=== PATIENT | male | born 1955 | race Caucasian/White ===

== ENCOUNTER 2016-08-09 12:01 | Emergency (ER) | payer MEDICAID ==
[2016-08-09] MEDS ORDERED: KETOROLAC 30 MG/ML 1 ML VIAL IVP STA (13:06)
[2016-08-09] MEDS ORDERED: MORPHINE SULFATE 4 MG/ML SYRINGE IV STA (13:06)
[2016-08-09] MEDS ORDERED: SODIUM CHLORIDE 0.9% 1,000 ML IV STA (13:06)
--- NOTE | 2016-08-09 13:07 | ED ---
General Adult HPI - General Chief complaint: Abdominal Pain Stated complaint: Abd Pain Time Seen by Provider: 08/09/16 12:52 Source: patient, RN notes reviewed, old records reviewed Mode of arrival: ambulatory Limitations: no limitations - History of Present Illness Initial comments: This is a 61-year-old male the ER for evaluation today. This patient presents for evaluation of bowel pain. Right-sided abdominal flank pain rating to groin. No nausea and vomiting. Pain started Tuesday has been getting worse and better, nothing seems to make it worse or better and it seems to kind of come and [place] bit. Patient has no problems with urination no noted blood in his urine no diarrhea no fevers no travel history of fifth - Related Data Home Medications Medication Instructions Recorded Confirmed Fenofibrate [Tricor] 54 mg PO HS 12/03/14 08/09/16 Pravastatin Sodium [Pravachol] 20 mg PO HS 12/03/14 08/09/16 amLODIPine [Norvasc] 5 mg PO HS 12/03/14 08/09/16 Aspirin 81 mg PO HS 08/09/16 08/09/16 Ergocalciferol [Vitamin D2] 50,000 unit PO MO 08/09/16 08/09/16 Allergies Allergy/AdvReac Type Severity Reaction Status Date / Time Anesthetics - Amide Type Allergy Nausea & Verified 08/09/16 13:24 Vomiting Review of Systems ROS Statement: Those systems with pertinent positive or pertinent negative responses have been documented in the HPI. ROS Other: All systems not noted in ROS Statement are negative. Past Medical History Past Medical History: Prostate Disorder History of Any Multi-Drug Resistant Organisms: None Reported Additional Past Surgical History / Comment(s): prostate reduction Past Psychological History: No Psychological Hx Reported Smoking Status: Former smoker Past Alcohol Use History: Occasional Past Drug Use History: Marijuana General Exam Limitations: no limitations General appearance: alert, in no apparent distress Head exam: Present: atraumatic, normocephalic, normal inspection Eye exam: Present: normal appearance, PERRL, EOMI. Absent: scleral icterus, conjunctival injection, periorbital swelling ENT exam: Present: normal exam, mucous membranes moist Neck exam: Present: normal inspection. Absent: tenderness, meningismus, lymphadenopathy Respiratory exam: Present: normal lung sounds bilaterally. Absent: respiratory distress, wheezes, rales, rhonchi, stridor Cardiovascular Exam: Present: regular rate, normal rhythm, normal heart sounds. Absent: systolic murmur, diastolic murmur, rubs, gallop, clicks GI/Abdominal exam: Present: soft, normal bowel sounds. Absent: distended, tenderness, guarding, rebound, rigid Extremities exam: Present: normal inspection, full ROM, normal capillary refill. Absent: tenderness, pedal edema, joint swelling, calf tenderness Back exam: Present: normal inspection Neurological exam: Present: alert, oriented X3, CN II-XII intact Psychiatric exam: Present: normal affect, normal mood Skin exam: Present: warm, dry, intact, normal color. Absent: rash Course Vital Signs 08/09/16 12:21 Temperature 97.9 F Pulse Rate 64 Respiratory 20 Rate Blood Pressure 138/93 O2 Sat by Pulse 99 Oximetry - Reevaluation(s) Reevaluation #1: 08/09/16 14:19 At this point patient's pain is relieved Medical Decision Making - Medical Decision Making 61 male to the ED for evaluation of flank pain. Positive. Stones. No infection, patient can be discharged home with pain control - Lab Data Result diagrams: 08/09/16 13:55 Lab Results 08/09/16 Range/Units 13:55 WBC 5.3 (3.8-10.6) k/uL RBC 4.57 (4.30-5.90) m/uL Hgb 14.5 (13.0-17.5) gm/dL Hct 42.2 (39.0-53.0) % MCV 92.3 (80.0-100.0) fL MCH 31.7 (25.0-35.0) pg MCHC 34.4 (31.0-37.0) g/dL RDW 12.7 (11.5-15.5) % Plt Count 158 (150-450) k/uL Neutrophils % 59 % Lymphocytes % 23 % Monocytes % 7 % Eosinophils % 8 % Basophils % 1 % Neutrophils # 3.1 (1.3-7.7) k/uL Lymphocytes # 1.2 (1.0-4.8) k/uL Monocytes # 0.4 (0-1.0) k/uL Eosinophils # 0.4 (0-0.7) k/uL Basophils # 0.1 (0-0.2) k/uL - Radiology Data Radiology results: report reviewed (CT of the abdomen had a pelvis positive for kidney stone), image reviewed Disposition Clinical Impression: Right kidney stone Disposition: HOME SELF-CARE Condition: Good Instructions: Kidney Stones (ED) Referrals: Juan Mathur MD [Primary Care Provider] - 1-2 days
[2016-08-09 14:09] LABS: Basophils # (A) 0.1 k/uL (0-0.2); Basophils % (A) 1 %; CH 32.3; CHCM 35.2; Eosinophils # (A) 0.4 k/uL (0-0.7); Eosinophils % (A) 8 %; HCT 42.2 % (39.0-53.0); HDW 2.63; HGB 14.5 gm/dL (13.0-17.5); Luc # (Auto) 0.17; Luc % (Auto) 3; Lymphocytes # (A) 1.2 k/uL (1.0-4.8); Lymphocytes % (A) 23 %; MCH 31.7 pg (25.0-35.0); MCHC 34.4 g/dL (31.0-37.0); MCV 92.3 fL (80.0-100.0); Mean Platelet Volume 8.8; Monocytes # (A) 0.4 k/uL (0-1.0); Monocytes % (A) 7 %; Neutrophils # (A) 3.1 k/uL (1.3-7.7); Neutrophils % (A) 59 %; RBC 4.57 m/uL (4.30-5.90); RDW 12.7 % (11.5-15.5); WBC 5.3 k/uL (3.8-10.6); WBC (Perox) 5.52
[2016-08-09 14:23] LABS: ALT 53 U/L (21-72); AST 50 U/L (17-59); Alkaline Phosphatase 71 U/L (38-126); Amylase 83 U/L (30-110); Anion Gap 11 mmol/L; Blood Urea Nitrogen 22 mg/dL (9-20); Carbon Dioxide 25 mmol/L (22-30); Chloride 106 mmol/L (98-107); Glucose 103 mg/dL (74-99); Non-African American GFR(MDRD) 55 (>60 ml/min/1.73 sqM); Potassium 4.3 mmol/L (3.5-5.1); Sodium 142 mmol/L (137-145); Total Bilirubin 0.5 mg/dL (0.2-1.3); Total Protein 7.4 g/dL (6.3-8.2)
--- NOTE | 2016-08-09 14:34 | CT ---
EXAMINATION TYPE: CT abdomen pelvis wo con DATE OF EXAM: 08/09/2016 2:24 PM HISTORY: renal stones, right flank pain CT DLP: 619 mGycm. Automated Exposure Control for Dose Reduction was Utilized. TECHNIQUE: CT scan of the abdomen and pelvis is performed without oral or IV contrast. COMPARISON: CT abdomen and pelvis January 30, 2010 FINDINGS: Within the limitations of a non-contrast study, the following observations are made. LUNG BASES: Dependent atelectasis is present in both lungs. LIVER/GB: Liver is low dense and isodense to adjacent spleen consistent with diffuse fatty infiltrati on. Vague 2.6 x 1.6 cm low dense lesion left hepatic dome on axial image 30 is diminished in size fro m prior exam suggesting most likely is benign. Smaller hypodense lesion right hepatic dome is not [place] seen on today's study. PANCREAS: No significant abnormality is seen. SPLEEN: No significant abnormality is seen. ADRENALS: No significant abnormality is seen. KIDNEYS: There is new 2 mm calculus right kidney mid to lower pole level on axial image 59 posteriorl y. There is similar 2 millimeter new calculus left kidney mid to lower pole level on axial image 61. There is obstructing 4 mm calculus seen best on coronal image 62 in the distal right ureter causing m ild right-sided pyelocaliectasis and proximal hydroureter. Mild fat stranding along course of the ure ter and right kidney is noted presumed related to obstructing calculus but underlying infection shoul d be excluded clinically. No left-sided hydronephrosis or obstructing stones are seen. No intralumina l calculi and bladder are noted. BOWEL: There are few diverticula seen in the left and sigmoid colon. There is no suspicious small or large bowel dilatation. Normal-appearing appendix is seen from the cecum. GENITAL ORGANS: Prostate gland is heterogeneous in appearance and enlarged in size. TURP type defect is seen. Central zone calcifications are noted. Adjacent pelvic phleboliths are present. LYMPH NODES: No greater than 1cm abdominal or pelvic lymph nodes are appreciated. OSSEOUS STRUCTURES: There is disc space narrowing with disc herniation L3-L4 level mildly effacing an terior thecal sac. OTHER: There is mild calcified atherosclerotic change of aorta and branch vessels. IMPRESSION: Bilateral small nonobstructing renal calculi. There is 4 mm obstructing calculus in the d istal right ureter causing mild right-sided hydronephrosis.
[2016-08-09 14:49] LABS: Appearance,Urine Clear (Clear); Bilirubin,Urine Negative (Negative); Glucose,Urine (UA) Negative (Negative); Ketones,Urine Negative (Negative); Leukocyte Esterase,Urine Negative (Negative); Mucus,Urine Rare /hpf; Nitrite,Urine Negative (Negative); PH, Urine 6.5 (5.0-8.0); Particle Count 1938; Protein,Urine Trace (Negative); RBC,Urine 90 /hpf (0-5); Squamous Epithelial Cell,Urine <1 /hpf (0-4); UA Billing (MACRO vs. MICRO) MICRO; Urobilinogen,Urine <2.0 mg/dL (<2.0); WBC,Urine 3 /hpf (0-5)
[2016-08-09 15:20] VITALS: BP 134/81; PULSE 79; RESP 18; TEMP 97.5
== END 2016-08-09 15:17 | disposition home or self-care (01) ==
LOC: EC 12:01
DX: N20.0 Calculus of kidney (principal); Z87.891 Personal history of nicotine dependence; Z79.82 Long term (current) use of aspirin; Z79.899 Other long term (current) drug therapy; Z88.4 Allergy status to anesthetic agent; Z87.438 Personal history of other diseases of male genital organs
CPT/HCPCS: 99284; 96374; 96375; 96361; 36415; 80053; 82150; 83690; 85025; 81001; 87086; 74176; J2270; J1885

== ENCOUNTER → 2016-09-08 | Outpatient (CLI) | payer MEDICAID ==
[2016-09-08 10:03] LABS: Basophils # (A) 0.1 k/uL (0-0.2); Basophils % (A) 1 %; CH 31.9; CHCM 34.7; Eosinophils # (A) 0.5 k/uL (0-0.7); Eosinophils % (A) 11 %; HCT 44.5 % (39.0-53.0); HDW 2.65; HGB 15.2 gm/dL (13.0-17.5); Luc # (Auto) 0.14; Luc % (Auto) 3; Lymphocytes # (A) 1.7 k/uL (1.0-4.8); Lymphocytes % (A) 36 %; MCH 31.5 pg (25.0-35.0); MCV 92.4 fL (80.0-100.0); Mean Platelet Volume 8.5; Monocytes # (A) 0.4 k/uL (0-1.0); Monocytes % (A) 8 %; Neutrophils % (A) 41 %; RBC 4.82 m/uL (4.30-5.90); RDW 13.1 % (11.5-15.5); WBC 4.8 k/uL (3.8-10.6); WBC (Perox) 4.66
[2016-09-08 10:27] LABS: ALT 46 U/L (21-72); AST 34 U/L (17-59); Alkaline Phosphatase 63 U/L (38-126); Anion Gap 10 mmol/L; Blood Urea Nitrogen 16 mg/dL (9-20); Calcium 8.7 mg/dL (8.4-10.2); Carbon Dioxide 27 mmol/L (22-30); Chloride 105 mmol/L (98-107); Glucose 150 mg/dL (74-99); Non-African American GFR(MDRD) >60 (>60 ml/min/1.73 sqM); Sodium 142 mmol/L (137-145); Total Bilirubin 0.5 mg/dL (0.2-1.3); Total Protein 7.1 g/dL (6.3-8.2)
[2016-09-14 07:52] LABS: LOG HIV Copies/mL <1.60 (<1.60)
== END | disposition home or self-care (01) ==
LOC: LABWHC1 09:26
PROVIDERS: ATTEND Internal Medicine Infectious Disease
DX: B20 Human immunodeficiency virus [HIV] disease (principal)
CPT/HCPCS: 36415; 80053; 85025; 86360; 87536

== ENCOUNTER → 2016-11-30 | Outpatient (CLI) | payer MEDICAID ==
[2016-11-30 12:50] LABS: Basophils % (A) 1 %; CH 31.8; CHCM 35.1; Eosinophils # (A) 0.5 k/uL (0-0.7); Eosinophils % (A) 8 %; HCT 47.7 % (39.0-53.0); HDW 2.72; HGB 16.6 gm/dL (13.0-17.5); Luc # (Auto) 0.08; Luc % (Auto) 1; Lymphocytes # (A) 1.5 k/uL (1.0-4.8); Lymphocytes % (A) 27 %; MCH 31.7 pg (25.0-35.0); MCHC 34.8 g/dL (31.0-37.0); Mean Platelet Volume 8.8; Monocytes # (A) 0.3 k/uL (0-1.0); Monocytes % (A) 6 %; Neutrophils # (A) 3.1 k/uL (1.3-7.7); Neutrophils % (A) 57 %; RBC 5.24 m/uL (4.30-5.90); RDW 12.8 % (11.5-15.5); WBC 5.5 k/uL (3.8-10.6); WBC (Perox) 5.56
[2016-11-30 13:03] LABS: ALT 52 U/L (21-72); AST 36 U/L (17-59); Alkaline Phosphatase 73 U/L (38-126); Anion Gap 10 mmol/L; Blood Urea Nitrogen 17 mg/dL (9-20); Calcium 9.4 mg/dL (8.4-10.2); Carbon Dioxide 29 mmol/L (22-30); Chloride 104 mmol/L (98-107); Glucose 92 mg/dL (74-99); Non-African American GFR(MDRD) 51 (>60 ml/min/1.73 sqM); Potassium 4.1 mmol/L (3.5-5.1); Sodium 143 mmol/L (137-145); Total Bilirubin 0.5 mg/dL (0.2-1.3); Total Protein 7.9 g/dL (6.3-8.2)
[2016-12-02 12:53] LABS: LOG HIV Copies/mL <1.60 (<1.60)
== END | disposition home or self-care (01) ==
LOC: LABWHC1 12:32
PROVIDERS: ATTEND Internal Medicine Infectious Disease
DX: B20 Human immunodeficiency virus [HIV] disease (principal)
CPT/HCPCS: 36415; 80053; 85025; 86360; 87536

== ENCOUNTER → 2017-01-14 | Outpatient (CLI) | payer MEDICAID ==
[2017-01-14 12:03] LABS: Anion Gap 9 mmol/L; Blood Urea Nitrogen 16 mg/dL (9-20); Calcium 9.1 mg/dL (8.4-10.2); Carbon Dioxide 28 mmol/L (22-30); Chloride 105 mmol/L (98-107); Glucose 85 mg/dL (74-99); Non-African American GFR(MDRD) >60 (>60 ml/min/1.73 sqM); Potassium 3.9 mmol/L (3.5-5.1); Sodium 142 mmol/L (137-145)
== END | disposition home or self-care (01) ==
LOC: LABWHC1 11:10
PROVIDERS: ATTEND Internal Medicine Infectious Disease
DX: R79.89 Other specified abnormal findings of blood chemistry (principal)
CPT/HCPCS: 36415; 80048

== ENCOUNTER → 2017-04-04 | Outpatient (CLI) | payer MEDICAID ==
[2017-04-04 10:49] LABS: Basophils # (A) 0.1 k/uL (0-0.2); Basophils % (A) 1 %; CH 32.1; Eosinophils # (A) 0.5 k/uL (0-0.7); Eosinophils % (A) 10 %; HCT 45.9 % (39.0-53.0); HDW 2.75; HGB 15.4 gm/dL (13.0-17.5); Luc # (Auto) 0.22; Luc % (Auto) 4; Lymphocytes # (A) 1.2 k/uL (1.0-4.8); Lymphocytes % (A) 22 %; MCH 30.8 pg (25.0-35.0); MCHC 33.5 g/dL (31.0-37.0); MCV 91.9 fL (80.0-100.0); Mean Platelet Volume 8.3; Monocytes # (A) 0.5 k/uL (0-1.0); Monocytes % (A) 8 %; Neutrophils % (A) 55 %; RBC 4.99 m/uL (4.30-5.90); RDW 12.7 % (11.5-15.5); WBC 5.4 k/uL (3.8-10.6)
[2017-04-04 11:06] LABS: ALT 37 U/L (21-72); AST 31 U/L (17-59); Alkaline Phosphatase 55 U/L (38-126); Anion Gap 10 mmol/L; Blood Urea Nitrogen 14 mg/dL (9-20); Carbon Dioxide 28 mmol/L (22-30); Chloride 105 mmol/L (98-107); Glucose 101 mg/dL (74-99); Non-African American GFR(MDRD) >60 (>60 ml/min/1.73 sqM); Potassium 4.3 mmol/L (3.5-5.1); Sodium 143 mmol/L (137-145); Total Bilirubin 0.4 mg/dL (0.2-1.3); Total Protein 7.5 g/dL (6.3-8.2)
== END | disposition home or self-care (01) ==
LOC: LABWHC1 10:03
PROVIDERS: ATTEND Internal Medicine Infectious Disease
DX: B20 Human immunodeficiency virus [HIV] disease (principal)
CPT/HCPCS: 36415; 80053; 85025; 86360; 87536

== ENCOUNTER → 2017-04-07 | Outpatient (CLI) | payer MEDICAID ==
[2017-04-08 14:25] LABS: LOG HIV Copies/mL <1.60 (<1.60)
== END | disposition home or self-care (01) ==
LOC: LABWHC1 12:17
PROVIDERS: ATTEND Internal Medicine Infectious Disease
DX: B20 Human immunodeficiency virus [HIV] disease (principal)
CPT/HCPCS: 36415; 87536

== ENCOUNTER → 2017-06-02 | Outpatient (CLI) | payer MEDICAID ==
--- NOTE | 2017-06-02 15:42 | MR ---
EXAMINATION TYPE: MR lumbar spine wo con DATE OF EXAM: 06/02/2017 12:37 PM COMPARISON: 11/03/2012 HISTORY: Low back pain Multiplanar, MultiSpin echo imaging of the lumbar spine was performed. L1-L2: Normal disc appearance without desiccation. No herniation, protrusion or disc bulging. No ca nal stenosis is present. Foramina are patent bilaterally. L2-L3: Normal disc appearance without desiccation. No herniation, protrusion or disc bulging. No ca nal stenosis is present. Foramina are patent bilaterally. L3-L4: Normal disc appearance without desiccation. No herniation, protrusion or disc bulging. No ca nal stenosis is present. Foramina are patent bilaterally. L4-L5: Previously noted large left paracentral disc herniation has resolved in the interval. There is mild disc bulging seen. No evidence for central stenosis. No foraminal encroachment. L5-S1: Mild disc desiccation. 2 mm anterolisthesis L5 on S1. Mild posterior disc bulge. No herniation or central stenosis. Lumbar segments are intact. No paraspinal masses are identified. Conus medullaris has a normal appe arance. IMPRESSION: 1. Resolution of previously noted disc herniation at L4-5 with only mild residual disc bulge. 2. Mild disc bulging at L5-S1. Grade 1 anterolisthesis of 2 mm.
== END | disposition home or self-care (01) ==
LOC: RADMRIMAIN 11:58
PROVIDERS: ATTEND Internal Medicine Infectious Disease
DX: M51.27 Other intervertebral disc displacement, lumbosacral region (principal); M43.17 Spondylolisthesis, lumbosacral region
CPT/HCPCS: 72148

== ENCOUNTER → 2017-06-15 | Outpatient (CLI) | payer MEDICAID ==
[2017-06-14 16:06] VITALS: BMI 26.6
[2017-06-15 14:00] VITALS: BP 147/97; PULSE 84; RESP 16
--- NOTE | 2017-06-15 15:57 | P.CONS ---
History of Present Illness - Reason for Consult Consult date: 06/15/17 - History of Present Illness This is 61 years old male with a chronic history of severe low back pain, and he was diagnosed several years ago and lumbar herniated disc disease, and more than 4 years ago , we have done lumbar epidural steroid injections, and he had good pain relief, until a few months ago he started having severe low back pain , the pain is constant and increases with any activity and he has no numbness or tingling sensation, he denies any fever or night sweats he denies any motor or sensory deficit, and he denies any change in the bowel movement or urination , he had MRI of the lumbar spine showed L4 5 herniated disc Past Medical History Past Medical History: Hyperlipidemia, Hypertension, Musculoskeletal Disorder, Prostate Disorder Additional Past Medical History / Comment(s): Bulging Disc History of Any Multi-Drug Resistant Organisms: None Reported Past Surgical History: Hernia Repair Additional Past Surgical History / Comment(s): prostate reduction Past Anesthesia/Blood Transfusion Reactions: Postoperative Nausea & Vomiting ( PONV) Additional Past Anesthesia/Blood Transfusion Reaction / Comm: after hernia surg. ? allergic to anesthia Amide Smoking Status: Former smoker - Past Family History Mother Family Medical History: Cancer Medications and Allergies Home Medications Medication Instructions Recorded Confirmed Type Fenofibrate [Tricor] 54 mg PO HS 12/03/14 06/15/17 History Pravastatin Sodium [Pravachol] 20 mg PO HS 12/03/14 06/15/17 History amLODIPine [Norvasc] 5 mg PO HS 12/03/14 06/15/17 History Aspirin 81 mg PO HS 08/09/16 06/15/17 History Ergocalciferol [Vitamin D2] 50,000 unit PO MO 08/09/16 06/15/17 History HYDROcodone/APAP 5-325MG [[place] 1 tab PO Q6HR PRN #30 tab 08/09/16 06/15/17 Rx 5-325] Allergies Allergy/AdvReac Type Severity Reaction Status Date / Time Anesthetics - Amide Type Allergy Nausea & Verified 06/15/17 13:30 Vomiting Physical Exam Vitals: Vital Signs Pulse Resp BP 06/15/17 13:54 84 16 147/97 Social history : not smoker , NO ETOH , NO Illegal drugs use . Review of Systems : 1- Constitutional : no chills , no fever , no night sweats , 2- Ears : no ear discharge , no change in hearing 3-Nose, Mouth ,Throat ; no bleeding gums, no sore throat , no epistaxis , 4-Cardiovascular : Denies chest pain, , no orthopnea , no palpitation 5-Respiratory : Denies cough , no dyspnea , no hemoptysis 6-Gastrointestinal :, no change in bowel habits , no coffee- ground emesis . 7-Genitourinary : No hematuria , no discharge , no incontinence, 8-Musculoskeletal : No gait dysfunction , report low back pain , 9- Neurological : no ataxia , no tremor , no sezure , 10-Psychatric , no suicidal ideation no hallucination 11- Endocrine : no cold intolerence , no polyuria , no polydypsia , 12-Hematologic : no easy bleeding , no easy brusing , 13-Allergic / immunology : no angioedema , no wheezing ,no allergic rhinitis 14-Integumentary : no brttle nails , no change hair / nails , no foot/leg ulcers . Physical Examinations : 1-Constitutional : Cooperative , not in acute distress . 2-HEENT : nech ; supple , no Lymphadenopathy , no Thyromegaly , :eyes , no icterus, no photophobia . ENT : , normal oropharynx , no Thrush 3- Respiratory : Chest clear to auscultations Bilaterally , no wheezing . 4- Cardiovascular : regular rate and rhythem , S1 , S2 , no S3 , no S4. 5- Gastrointestinal: abdomen soft no tenderness , no organomegally . 6- Genitourinary : Defferred . 7-Integumentary : No cellulitis , no ulcers , normal skin turgor , no cyanotic . 8- neurologic : Cranial nerve II to XII intact , no focal neurological deffecit 9-psychatric : alert , oriented X 3 , appropriate affect , intact judgment and insight . 10-Lymphatic : no Lymphadenopathy. 11- musculoskeltal: normal gait Lumber spine moter stegnth lower extremities ,thigh and legs 5/5 Right side , 5/5 Left side deep tendon reflexes : normal Knee Jerk , normal ankle Jerk lumber facet Loading Test negative Range of motion of the lumbar spine Flexion 30 degrees, extension 10 degrees strait leg raising test negative bilaterally Fabere test negative bilaterally Results Comments: MRI of the lumbar spine l4- 5 lumbar herniated disc disease Assessment and Plan Plan: Assessment and plan= low back pain secondary to lumbar herniated disc disease, patient could benefit from lumbar epidural steroid injections patient could benefit from [place] 5/325 every 12 hours when necessary dispensed 30 Time with Patient: Greater than 30
== END | disposition home or self-care (01) ==
LOC: PNWHC3 12:54
PROVIDERS: ATTEND Specialist
DX: G89.29 Other chronic pain (principal); M51.26 Other intervertebral disc displacement, lumbar region; E78.5 Hyperlipidemia, unspecified; I10 Essential (primary) hypertension; Z87.891 Personal history of nicotine dependence; Z79.82 Long term (current) use of aspirin; Z88.4 Allergy status to anesthetic agent; Z79.891 Long term (current) use of opiate analgesic
CPT/HCPCS: 99211

== ENCOUNTER 2017-06-23 06:21 | Day surgery (SDC) | payer MEDICAID ==
[2017-06-16 15:41] VITALS: BMI 26.6
[~2017-06-23 06:21] MED LIST: LACTATED RINGERS 1,000 ML IV SCH
[2017-06-23 07:06] VITALS: TEMP 97.3
--- NOTE | 2017-06-23 07:44 | P.PCN ---
Date of Procedure: 06/23/17 Procedure(s) Performed: PREOPERATIVE DIAGNOSIS: 1- Lumbar herniated Disc Diseases. POSTOPERATIVE DIAGNOSIS: 1-Lumber herniated Disc Diseases. PROCEDURE 1. Lumbar epidural steroid injection under fluoroscopic guidance at the L4-5 level. 2. Lumbar epidurogram. ANESTHESIA: Local with 1% lidocaine 3 ml and , moderate sedation with intravenous Versed 2 mg ,and fentanyle 100 Mcg EBL: Minimal PROCEDURE INDICATION: The patient with low back pain and radiculitis symptoms unresponsive to conservative treatment. Fluoroscopy was used to optimize visualization of the needle placement and to maximize safety. PROCEDURE DESCRIPTION / TECHNIQUE: The patient was seen and identified in the preoperative area. Risks, benefits , complications including but not limited to infections ,bleeding ,allergic reaction to the medications ,nerve damage and not complete pain releife , and alternatives were discussed with the patient. The patient agreed to proceed with the procedure and signed the consent. IV was started, and vital signs were stable. Patient was taken to the OR and time out was completed. The patient was placed in the prone position on procedure table and a pillow was placed under the abdomen to reduce lumbar lordosis. The lumbosacral area was prepped and draped in the usual sterile fashion.ere closely monitored during the procedure. Conscious sedation was used during the procedure to decrease patients anxiety. Vital signs was monitered during the entire procedure. Using anterior-posterior fluoroscopy, the L4-5 interlaminar space was identified and the skin over this site was marked and then infiltrated with 1% lidocaine subcutaneously. Subsequently, a 20-gauge Tuohy epidural needle was inserted and advanced toward the epidural space using the ``Loss of resistance technique and guided by AP and lateral fluoroscopy. The correct needle position in the epidural space was verified with the injection of 2 mL of the water soluble contrast dye Omnipaque 180 contrast and observing an excellent epidurogram with the epidural spread of the dye, after negative aspiration for blood and CSF and in the absence of paresthesias. Again after negative aspiration, a 6 ml mixture containing 80 mg Depomedrol and 2 ml of preservative free Normal Saline, and 2 ml of preservative free lidocaine 1% solution was injected and a washout of epidurogram was seen. Needle was withdrawn intact, skin was cleansed, and bandages were applied. COMPLICATIONS: None DISPOSITION / PLANS: The patient was placed in a supine position and transferred to the recovery area in a stable condition for observation. There was no evidence of lower extremity motor or sensory deficit after the procedure. Patient was discharged from the recovery room after meeting discharge criteria. Home discharge instructions were given to the patient by the staff. The patient was reexamined prior to discharge. The patient will schedule a follow up in the clinic in 2-4 weeks.
[2017-06-23] MEDS ORDERED: IV FLUID CONTINUATION 1,000 ML IV ONE (07:45)
[2017-06-23 07:49] VITALS: RESP 16
[2017-06-23 08:09] VITALS: BP 150/94; PULSE 71
--- NOTE | 2017-06-23 09:00 | FL ---
EXAMINATION TYPE: FL guided pain mgmt statistic DATE OF EXAM: 06/23/2017 HISTORY: Flouroscopy time 1 seconds of fluoroscopy provided. IMPRESSION: 1. Fluoroscopy time.
== END 2017-06-23 08:22 | disposition home or self-care (01) ==
LOC: ORPAIN 06:21
PROVIDERS: ATTEND Specialist
DX: M51.16 Intervertebral disc disorders with radiculopathy, lumbar region (principal); I10 Essential (primary) hypertension; Z91.09 Other allergy status, other than to drugs and biological substances
CPT/HCPCS: 62323; J1030; Q9965

== ENCOUNTER 2017-07-19 06:23 | Day surgery (SDC) | payer MEDICAID ==
[2017-07-15 09:32] VITALS: BMI 25.8
[2017-07-19 06:51] VITALS: RESP 16; TEMP 98.1
--- NOTE | 2017-07-19 07:25 | P.PCN ---
Date of Procedure: 07/19/17 Surgeon: Drea Jefferson Description of Procedure: PREOPERATIVE DIAGNOSIS: Lumber Degengenerative disc disease. POSTOPERATIVE DIAGNOSIS: Lumber Degenerative Disc Diseases PROCEDURE 1. Lumbar epidural steroid injection under fluoroscopic guidance at the L4-5 level in the left paramedian approach 2. Lumbar epidurogram. ANESTHESIA: Local with 1% lidocaine; IV sedation with Versed ---mg ,and fentanyle EBL: Minimal PROCEDURE INDICATION: The patient with low back pain and radiculitis symptoms unresponsive to conservative treatment. Fluoroscopy was used to optimize visualization of the needle placement and to maximize safety. PROCEDURE DESCRIPTION / TECHNIQUE: The patient was seen and identified in the preoperative area. Risks, benefits , complications including but not limited to infections ,bleeding ,allergic reaction to the medications ,nerve damage and not complete pain relief , and alternatives were discussed with the patient. The patient agreed to proceed with the procedure and signed the consent. IV was started, and vital signs were stable. Patient was taken to the OR and time out was completed. The patient was placed in the prone position on procedure table and a pillow was placed under the abdomen to reduce lumbar lordosis. The lumbosacral area was prepped and draped in the usual sterile fashion with Betadine 3.Patient was closely monitored during the procedure. Conscious sedation was used during the procedure to decrease patients anxiety. Vital signs were monitered during the entire procedure. Using anterior-posterior fluoroscopy, the L4-5 interlaminar space was identified and the skin over this site was marked and then infiltrated with 1% lidocaine subcutaneously. Subsequently, a 20-gauge Tuohy epidural needle was inserted and advanced toward the epidural space using the Loss of resistance to air technique and guided by AP and lateral fluoroscopy. The correct needle position in the epidural space was verified with the injection of 1 mL of the water soluble contrast dye Omnipaque 180 contrast and observing an excellent epidurogram with the epidural spread of the dye, after negative aspiration for blood and CSF and in the absence of paresthesias. Again after negative aspiration, a 8 ml mixture containing 40 mg of Kenalog and 5 ml of preservative free Normal Saline, and 2 ml of preservative free Marcaine 0.25% solution was injected and a washout of epidurogram was seen. Needle was withdrawn intact, skin was cleansed, and bandages were applied. patient tolerated procedure well and was transferred to PACU in stable condition. Patient has mostly left axial lower back pain and if this injection does not help then we'll plan on doing medial branch block on the left side. COMPLICATIONS: None
[2017-07-19] MEDS ORDERED: IV FLUID CONTINUATION 1,000 ML IV ONE (07:33)
[2017-07-19 07:47] VITALS: BP 141/95; PULSE 70
--- NOTE | 2017-07-19 10:05 | FL ---
EXAMINATION TYPE: FL guided pain mgmt statistic DATE OF EXAM: 07/19/2017 HISTORY: Flouroscopy time 3 seconds of fluoroscopy provided. IMPRESSION: 1. Fluoroscopy time.
== END 2017-07-19 08:03 | disposition home or self-care (01) ==
LOC: ORPAIN 06:23
PROVIDERS: ATTEND Anesthesiology
DX: M51.16 Intervertebral disc disorders with radiculopathy, lumbar region (principal); E66.3 Overweight; Z68.25 Body mass index [BMI] 25.0-25.9, adult; Z88.4 Allergy status to anesthetic agent
CPT/HCPCS: 62323; J2250; J3301; Q9965; J3010

== ENCOUNTER → 2017-08-01 | Outpatient (CLI) | payer MEDICAID ==
[2017-08-01 11:32] LABS: ALT 34 U/L (21-72); AST 22 U/L (17-59); Albumin 4.3 g/dL (3.5-5.0); Alkaline Phosphatase 56 U/L (38-126); Anion Gap 14 mmol/L; Blood Urea Nitrogen 18 mg/dL (9-20); Calcium 9.4 mg/dL (8.4-10.2); Carbon Dioxide 25 mmol/L (22-30); Chloride 104 mmol/L (98-107); Glucose 160 mg/dL (74-99); Sodium 143 mmol/L (137-145); Total Bilirubin 0.5 mg/dL (0.2-1.3); Total Protein 7.2 g/dL (6.3-8.2)
[2017-08-01 11:33] LABS: Basophils % (A) 0 %; Eosinophils # (A) 0.1 k/uL (0-0.7); Eosinophils % (A) 1 %; HCT 46.5 % (39.0-53.0); HGB 15.1 gm/dL (13.0-17.5); Lymphocytes # (A) 1.3 k/uL (1.0-4.8); Lymphocytes % (A) 17 %; MCH 29.5 pg (25.0-35.0); MCHC 32.6 g/dL (31.0-37.0); MCV 90.6 fL (80.0-100.0); Mean Platelet Volume 8.4; Monocytes # (A) 0.4 k/uL (0-1.0); Monocytes % (A) 6 %; Neutrophils # (A) 5.7 k/uL (1.3-7.7); Neutrophils % (A) 76 %; Platelet Count 222 k/uL (150-450); RBC 5.13 m/uL (4.30-5.90); RDW 12.9 % (11.5-15.5); WBC 7.5 k/uL (3.8-10.6)
[2017-08-02 11:15] LABS: T4/T8 Ratio (CD4:CD8) 1.2 (1.0-3.7)
[2017-08-02 13:27] LABS: HIV-1 RNA Not detected (Not detected); HIV-1 RNA, Quant <40 Copies/mL (<40)
== END | disposition home or self-care (01) ==
LOC: LABWHC1 10:55
PROVIDERS: ATTEND Internal Medicine Infectious Disease
DX: B20 Human immunodeficiency virus [HIV] disease (principal)
CPT/HCPCS: 36415; 80053; 85025; 86360; 87536

== ENCOUNTER → 2017-08-29 | Outpatient (CLI) | payer MEDICAID ==
[2017-08-29 14:53] VITALS: BP 148/101; PULSE 89; RESP 20
--- NOTE | 2017-08-29 15:27 | P.PN ---
Subjective Progress Note Date: 08/29/17 This is follow-up visit for this patient with a history of severe and chronic low back pain secondary to lumbar herniated disc disease, lumbar spondylosis with facet arthropathy, we have done lumbar epidural steroid injections 2 and he had very minimal benefit for short time , a few weeks ago we did left-sided diagnostic medial branches block , a report that his pain decreased from 8/10 before the procedure to 0-1/10 after the procedure and the pain relief lasted for a few days , and he had improvement in his ability to do activities of daily livings patient currently on [place] 5/325 every 6-8 hours when necessary Patient denies any side effects of the medication, denies excessive drowsiness or sleepiness, denies suicidal ideation, and reports that the current pain medication is helping To control the pain and improve activity of daily living . Patient denies any motor or sensory deficit, denies change in bowel movement or urination, patient denies any fever or night sweats and patient here for follow-up visit and medication refill Objective - Vital Signs Vital signs: Vital Signs Temp Pulse 89 08/29/17 14:42 Resp 20 08/29/17 14:42 BP 148/101 08/29/17 14:42 Pulse Ox 97 08/29/17 14:42 Intake & Output 08/28/17 08/29/17 08/29/17 18:59 06:59 18:59 Weight 75.296 kg - Exam Physical Examinations : 1-Constitutiona : Cooperative , not in acute distress . 2-HEENT : nech ; supple , no Lymphadenopathy , normal thyroid size . eyes : no ptosis , no icterus, no photophobia . ENT : normal of hearing , normal oropharynx , no Thrush . 3- Respiratory : Chest clear to auscultations Bilaterally , no wheezing , no Rhonchi . 4- Cardiovascular : regular rate and rhythem , S1 , S2 , no S3 , no S4. 5- Gastrointestinal : abdomen soft no tenderness , bowel sounds positive all four quadrents , no organomegally . 6- Genitourinary : Defferred . 7- neurologic : Cranial nerve II to XII intact , no focal neurological deffecit . 8-psychatric : alert , oriented X 3 , appropriate affect , intact judgment and insight . 9-Lymphatic : no Lymphadenopathy . 10- musculoskeltal : , Lumber spine = normal moter stegnth lower extremities ,thigh and legs .5/5 deep tendon reflexes : normal Knee Jerk , normal ankle Jerk . lumber facet Loading Test positive on the left side Assessment and Plan Plan: Assessment and plan= chronic low back pain secondary to lumbar herniated disc disease , lumbar spondylosis with lumbar facet arthropathy , He had minimum benefit and for short-term after lumbar epidural steroid injections, he had more than 80% decrease in his low back pain after the diagnostic medial branch block lumbar area chronic and current use of high-risk medication (opioids) Patient denies any side effects of the current pain medication and the current treatment/medication ML and the patient to do activity of daily living , Diagnoses, prognosis, treatment options, including but not limited to physical therapy, medication management, interventional therapies, and surgery, were discussed with the patient All the questions answered Patient signed the narcotic agreement, and he was orally counseled, not to overuse, not to abuse, not to Divert , not tp sell pain medication, and to take it as prescribed only, Patient was counseled not to drive or operate heavy equipment while using narcotic medication, and advised not to use alcohol or any Illicit drugs while using the narcotis, the patient's verbalized understanding that lack of compliance with any of the above instructions and will likely to cause discharge from the pain service, not to renew his narcotic prescriptions Medication managements= patient will be given prescription refills for [place] 5/325 every 6 hours when necessary dispensed 30 with Interventions= patient will be scheduled to have repeat left-sided medial branch block at L3 4, L4-L5 , L5-S1 under fluoroscopy guidance , Time with Patient: Less than 30
== END | disposition home or self-care (01) ==
LOC: PNWHC3 14:12
PROVIDERS: ATTEND Specialist
DX: G89.29 Other chronic pain (principal); M51.26 Other intervertebral disc displacement, lumbar region; M47.816 Spondylosis without myelopathy or radiculopathy, lumbar region; M46.96 Unspecified inflammatory spondylopathy, lumbar region; Z79.891 Long term (current) use of opiate analgesic
CPT/HCPCS: 99211

== ENCOUNTER 2017-08-31 08:54 | Day surgery (SDC) | payer MEDICAID ==
[2017-08-30 08:29] VITALS: BMI 25.9
[2017-08-31] MEDS ORDERED: LACTATED RINGERS 1,000 ML IV SCH (09:15)
[2017-08-31 09:39] VITALS: RESP 18; TEMP 98
--- NOTE | 2017-08-31 10:26 | P.PCN ---
Date of Procedure: 08/31/17 Surgeon: Rinku Martinez Pathology: none sent Condition: stable Disposition: PACU Description of Procedure: PREOPERATIVE DIAGNOSIS: Lumbar spondylosis without myelopathy and facet arthropathy. POSTOPERATIVE DIAGNOSIS: Lumbar spondylosis without myelopathy and facet arthropathy. PROCEDURE DESCRIPTION: Patient presents for LEFT side only L3-L4, L4-L5 and L5- S1 diagnostic medial branch blocks under fluoroscopic guidance. The procedure is performed using fluoroscopic guidance during needle placement to assure proper position and maximize safety. ANESTHESIA: Local with 1% lidocaine; conscious sedation with Versed only EBL: Minimal PROCEDURE INDICATION: Patient with lumbar facet arthropathy signs and symptoms unresponsive to conservative treatment, here for diagnostic medial branch block on left side only, #2 in series after three days' relief from previous MBB. Pt does not take any blood thinning medications. PROCEDURE DESCRIPTION: The patient was seen and identified in the preoperative area. Risks, benefits, complications, and alternatives were discussed with the patient (including but not limited to incomplete pain relief, bleeding, infection, nerve damage, and allergies to medications), the patient agreed to proceed with the procedure and signed the consent after all questions were answered. Patient was taken to the OR and time out was completed to verify proper patient, position, laterality of pain, and allergies. Pt was placed in the prone position and a pillow was placed under the abdomen to reduce lumbar lordosis. The lumbosacral area was prepped and draped in the usual sterile fashion. Using oblique fluoroscopy, the eye of the "Morris dog" of left L4 vertebral body , which corresponds to the path of the medial branch originating from the level above, which is L3 in this case, was identified. Subsequently, a 22-gauge 3.5- inch spinal needle was inserted under fluoroscopic guidance toward the eye of the "Morris dog" of the left L4 vertebral body, corresponding to the junction of the superior articular process and the transverse process of the pedicle of the same level. After needle tip confirmation on lateral view and after negative aspiration for CSF and blood and without paresthesias, 1 mL of a 3 ml solution of 0.5% preservative-free bupivacaine and 40 mg Kenalog was injected. Subsequently the needle was withdrawn intact and the same procedure was repeated for the left L4 and left L5 medial branches which together with right L3 medial branch correspond to the sensory innervation of the left L3-L4, L4-L5 , and L5-S1 facet joints. Needle was withdrawn intact after each injection. At the end of the procedure, the skin was cleansed and bandages were applied. COMPLICATIONS: None. DISPOSITION/PLAN: The patient taken to the recovery area after the procedure in a stable condition for observation. Patient was reexamined prior to discharge and there were no issues. Patient was discharged home, accompanied by an adult, after meeting discharged criteria. Discharge instructions were give to the patient by the staff. Patient was specifically instructed not to drive today and to rest for the rest of the day. Patient will schedule left lumbar RFA in 3-4 weeks.
[2017-08-31] MEDS ORDERED: IV FLUID CONTINUATION 1,000 ML IV ONE (10:33)
[2017-08-31 11:07] VITALS: BP 149/84; PULSE 62
--- NOTE | 2017-08-31 11:52 | FL ---
Fluoroscopy HISTORY: Pain 8 seconds fluoroscopy time supplied to the referring clinician. 3 intraoperative C-arm images docume nt the procedure. See dictated report from anesthesia.
== END 2017-08-31 11:15 | disposition home or self-care (01) ==
LOC: ORPAIN 08:54
PROVIDERS: ATTEND Anesthesiology
DX: G89.29 Other chronic pain (principal); M47.816 Spondylosis without myelopathy or radiculopathy, lumbar region; M51.26 Other intervertebral disc displacement, lumbar region; Z88.8 Allergy status to other drugs, medicaments and biological substances; Z79.891 Long term (current) use of opiate analgesic
CPT/HCPCS: 64493; 64494; 64495; J2250; J3301; 99152

== ENCOUNTER → 2017-10-07 | Outpatient (CLI) | payer MEDICAID ==
--- NOTE | 2017-10-07 13:52 | CT ---
EXAMINATION TYPE: CT chest wo/w con DATE OF EXAM: 10/07/2017 COMPARISON: NONE HISTORY: Supraclavicular swelling CT DLP: 1436.8 mGycm. Automated Exposure Control for Dose Reduction was Utilized. TECHNIQUE: CT scan of the thorax is performed following without and with IV Contrast, patient inject ed with 100 mL of Isovue 300. FINDINGS: LUNGS: The lungs are grossly clear, there is no concerning parenchymal mass or nodule identified. 9 c alcified parenchymal right middle lobe granuloma is noted. There is no pleural effusion or pneumotho rax seen. The tracheobronchial tree is patent. MEDIASTINUM: There are no greater than 1 cm hilar or mediastinal lymph nodes. Calcified mediastinal l ymph nodes are seen, sequela of prior granulomatous disease. No pericardial effusion is seen. Promi nent epicardial fat pad is incidentally seen. Left costophrenic angle is not imaged due to patient shelley dy habitus and cannot be evaluated. Mild coronary calcification is seen within the left anterior desc ending coronary artery. OTHER: No additional significant abnormality is seen. 3 mm punctate nonobstructing right lower pole renal calculus and 2 mm left midpole nonobstructing renal calculus are present. Benign vertebral body hemangioma is seen of T2. IMPRESSION: Sequela of benign granulomatous change within the mediastinum and pulmonary parenchyma. N o focal consolidation, pleural effusion or pneumothorax. No mediastinal adenopathy. No supraclavicula r adenopathy. Thyroid gland is unremarkable.
--- NOTE | 2017-10-07 13:57 | CT ---
EXAMINATION TYPE: CT soft tissue neck wo/w con DATE OF EXAM: 10/07/2017 HISTORY: Supraclavicular swelling COMPARISON: NONE CT DLP: 1436.8 mGycm. Automated Exposure Control for Dose Reduction was Utilized. TECHNIQUE: CT scan of the neck is performed without and with IV Contrast, patient injected with 100 mL of Isovue 300, axial images are obtained, coronal and sagittal reformatted images are reviewed. FINDINGS: Airway: No gross abnormality seen. Parotid/submandibular glands: No gross abnormality seen. Carotid/Vascular Structures: Minimal calcific atheromatous plaquing is seen of the carotid bulbs with out hemodynamically significant stenosis. Vertebral arteries are patent and codominant. There is a co nventional 3 vessel branch pattern of the aortic arch. No aneurysmal outpouching. Osseous Structures: There is minimal mucosal thickening within the most superior ethmoid sinuses. Rem aining visualized paranasal sinuses and mastoid air cells are well aerated. Mild multilevel degenerat sarah changes of the cervical spine are seen. Cervical spine vertebral body heights are maintained and alignment is also maintained. Other: There is no CT correlate to the patient's stated supraclavicular bilateral swelling. No suprac lavicular adenopathy is seen. No adenopathy within the neck. No subcutaneous edema. No focal skin thi ckening. No focal fluid collection to suggest abscess. IMPRESSION: No CT correlate to correspond to the patient's bilateral supraclavicular neck swelling. No supraclavicular adenopathy, skin thickening or subcutaneous edema. No focal fluid collection to adames ggest abscess.
== END ==
LOC: RADCTMAIN 12:49
PROVIDERS: ATTEND Internal Medicine Infectious Disease
DX: L92.8 Other granulomatous disorders of the skin and subcutaneous tissue (principal)
CPT/HCPCS: 70492; 71270; Q9967

== ENCOUNTER → 2017-12-23 | Outpatient (CLI) | payer MEDICAID ==
[2017-12-23 11:35] LABS: Basophils % (A) 1 %; Eosinophils # (A) 0.3 k/uL (0-0.7); Eosinophils % (A) 5 %; HCT 43.8 % (39.0-53.0); HGB 14.6 gm/dL (13.0-17.5); Lymphocytes # (A) 1.8 k/uL (1.0-4.8); Lymphocytes % (A) 33 %; MCH 30.5 pg (25.0-35.0); MCHC 33.2 g/dL (31.0-37.0); MCV 91.7 fL (80.0-100.0); Monocytes # (A) 0.4 k/uL (0-1.0); Monocytes % (A) 7 %; Neutrophils % (A) 54 %; Platelet Count 209 k/uL (150-450); RBC 4.77 m/uL (4.30-5.90); RDW 12.7 % (11.5-15.5); WBC 5.5 k/uL (3.8-10.6)
[2017-12-23 12:17] LABS: Albumin 4.2 g/dL (3.5-5.0); Calcium 9.1 mg/dL (8.4-10.2); Potassium 3.9 mmol/L (3.5-5.1); Total Bilirubin 0.5 mg/dL (0.2-1.3)
[2017-12-24 13:29] LABS: T4/T8 Ratio (CD4:CD8) 1.3 (1.0-3.7)
== END | disposition home or self-care (01) ==
LOC: LABWHC1 11:16
PROVIDERS: ATTEND Internal Medicine Infectious Disease
DX: B20 Human immunodeficiency virus [HIV] disease (principal); E78.9 Disorder of lipoprotein metabolism, unspecified
CPT/HCPCS: 36415; 80053; 80061; 85025; 86360; 87536

== ENCOUNTER → 2018-04-05 | Outpatient (CLI) | payer MEDICAID ==
[2018-04-05 13:26] VITALS: BP 151/104; PULSE 92; RESP 16
--- NOTE | 2018-04-05 13:43 | P.PAINPG ---
Subjective Progress Note Date: 04/05/18 Principal diagnosis: Lumbar spondylosis This is a very pleasant 62-year-old gentleman with a history of low back pain. He is undergone 2 previous lumbar medial branch nerve blocks. These have afforded him very significant reduction in his pain. He was nearly pain-free for a period of months. Unfortunately, his pain has come back. It is in the same character and distribution as his previous symptoms. He denies bowel or bladder dysfunction. Objective - Vital Signs Vital signs: Vital Signs Temp Pulse 92 04/05/18 13:18 Resp 16 04/05/18 13:18 BP 151/104 04/05/18 13:18 Pulse Ox 96 04/05/18 13:18 Intake & Output 04/04/18 04/05/18 04/05/18 18:59 06:59 18:59 Weight 77.111 kg - Exam General: The patient is alert and oriented. Patient is not sedated Patient answers all question appropriately. Cardiac: Heart is regular in rate and rhythm Respiratory: Clear to auscultation. No audible wheezes. Abdomen: Soft nontender nondistended. Lower extremities: Strength is normal bilaterally. Sensation is normal bilaterally. Reflexes are preserved and symmetric bilaterally. Straight leg raise is negative bilaterally. Facet loading maneuvers are positive on the left side. Assessment and Plan (1) Spondylosis of lumbar region without myelopathy or radiculopathy Narrative/Plan: Plan of Care 1. Medications: We have previously prescribed [place] for the patient. I will give him a prescription today. I'm anticipating he will not need this medication once he undergoes a radio frequency ablation. I have reviewed the patient's MAPS report and it reveals expected results. Patient has signed an opiate agreement as well as opiate consent for treatment in our clinic. They understand the risks and benefits of opiate medications. They are aware of the potential for addiction. 2. Interventions: We will schedule patient for a left lumbar medial branch radio frequency ablation at L4, L5 and the sacral ala 3. Referrals: None 4. Testing: None 5. Follow-up: Left lumbar radio frequency ablation on April 25 Current Visit: Yes Status: Acute Code(s): M47.816 - SPONDYLOSIS W/O MYELOPATHY OR RADICULOPATHY, LUMBAR REGION SNOMED Code(s): 08401582 PQRS Measure Charge Sheet Measure #130: Documentation of Current Meds in Medical Chart: Patient's medications documented in chart Measure #226: Tobacco Use: Screen & Cessation Intervention: Pt not a tobacco user Measure #111: Pneumonia Vaccination: Pneumococcal vaccine NOT administered or previously given Measure #47: Advance Care Plan: Advance care planning discussed & documented, pt chose/unable to give Measure #412: Opioid Treatment Agreement: Documented signed opioid trtmnt agreemnt min once during opioid trtmnt Measure #408: Opioid Therapy Follow-up Evaluation: Patient had f/u eval minimum every 3 months during opioid therapy Measure #317: Preventitive Care & Scrn High Bld Press & F/U: Normal blood pressure, f/u not required Measure #128: Body Mass Index (BMI) Screening & Follow-up: BMI documented within normal parameters Measure #131: Pain Assessment & Follow-up: Pain positive & plan documented Measure #431: Unhealthy Alcohol Use Preventative Care & Scrn: Patient not identified as an unhealthy alcohol user PQRS Narrative: Smoking Status Former smoker Do You Want the Pneumonia Vaccine Up to Date Vaccine AT THIS TIME? Blood Pressure 151/104 Pain Intensity [Left Lower 8 Back] Scale Used Numeric (1 - 10) Hx Alcohol Use (MH) Yes: social Home Medications: Ambulatory Orders Fenofibrate [Tricor] 54 mg PO HS 12/03/14 Pravastatin Sodium [Pravachol] 20 mg PO HS 12/03/14 amLODIPine [Norvasc] 5 mg PO HS 12/03/14 Aspirin 81 mg PO HS 08/09/16 Ergocalciferol [Vitamin D2] 50,000 unit PO MO 08/09/16 HYDROcodone/APAP 5-325MG [[place] 5-325] 1 tab PO Q6HR PRN #30 tab 08/29/17 Controlled Substance Measures - Controlled Substance Measures Is patient prescribed a controlled substance at discharge?: Yes When asked, does pt state using other controlled substances?: No If prescribed controlled substance>3 days was MAPS reviewed?: Yes If Rx opioid, was Start Talking consent form obtained?: No
== END ==
LOC: PNWHC3 12:47
PROVIDERS: ATTEND Pain Medicine Pain Medicine
DX: M47.816 Spondylosis without myelopathy or radiculopathy, lumbar region (principal); Z87.891 Personal history of nicotine dependence; Z79.899 Other long term (current) drug therapy; Z79.82 Long term (current) use of aspirin
CPT/HCPCS: 99211

== ENCOUNTER 2018-04-12 11:27 | Emergency (ER) | payer MEDICAID ==
[2018-04-12] MEDS ORDERED: SODIUM CHLORIDE 0.9% 1,000 ML IV STA (12:15)
--- NOTE | 2018-04-12 12:17 | ED ---
General Adult HPI - General Chief complaint: Abdominal Pain Stated complaint: abdominal pain, diarrhea Time Seen by Provider: 04/12/18 12:11 Source: patient, RN notes reviewed Mode of arrival: ambulatory Limitations: no limitations - History of Present Illness Initial comments: Patient 62-year-old male presents to the emergency room today with a chief complaint of abdominal pain over the last 2 days. Patient does admit that symptoms started yesterday morning when he woke up. Did have a few episodes of vomiting. Patient states she's had diarrhea since. States nausea is improved. States he has abdominal cramping throughout the abdomen that comes and goes. Currently rates it a 3/10. Patient denies any signs of blood in the emesis or stool. Patient denies any other complaints at this time. Patient denies any recent fever, chills, shortness of breath, chest pain, back pain, numbness or tingling, dysuria or hematuria, constipation, headaches or visual changes, or any other complaints. - Related Data Home Medications Medication Instructions Recorded Confirmed Fenofibrate [Tricor] 54 mg PO HS 12/03/14 04/12/18 Pravastatin Sodium [Pravachol] 20 mg PO HS 12/03/14 04/12/18 Aspirin 81 mg PO HS 08/09/16 04/12/18 Ergocalciferol [Vitamin D2] 50,000 unit PO MO 08/09/16 04/12/18 amLODIPine [Norvasc] 10 mg PO DAILY 04/12/18 04/12/18 Allergies Allergy/AdvReac Type Severity Reaction Status Date / Time Anesthetics - Amide Type Allergy Nausea & Verified 04/12/18 12:18 Vomiting Review of Systems ROS Statement: Those systems with pertinent positive or pertinent negative responses have been documented in the HPI. ROS Other: All systems not noted in ROS Statement are negative. Past Medical History Past Medical History: Hyperlipidemia, Hypertension, Prostate Disorder History of Any Multi-Drug Resistant Organisms: None Reported Past Surgical History: Prostate Surgery Additional Past Surgical History / Comment(s): hemorrhoidectomy Past Anesthesia/Blood Transfusion Reactions: Postoperative Nausea & Vomiting ( PONV) Past Psychological History: No Psychological Hx Reported Smoking Status: Former smoker Past Alcohol Use History: Occasional Past Drug Use History: None Reported - Past Family History Mother Family Medical History: Cancer General Exam - General Exam Comments Initial Comments: General: The patient is awake and alert, in no distress, and does not appear acutely ill. Eye: There is normal conjunctiva bilaterally. No signs of icterus. Ears, nose, mouth and throat: There are moist mucous membranes and no oral lesions. Neck: The neck is supple, there is no tenderness or JVD. Cardiovascular: There is a regular rate and rhythm. No murmur, rub or gallop is appreciated. Respiratory: Lungs are clear to auscultation, respirations are non-labored, breath sounds are equal. No wheezes, stridor, rales, or rhonchi. Gastrointestinal: Admits to palpation. Patient does have mild tenderness left lower quadrant. No rebound, guarding or CVA tenderness. Musculoskeletal: Normal ROM, no tenderness. Strength 5/5. Sensation intact. Pulses equal bilaterally 2+. Neurological: A&O x 3. CN II-XII intact, There are no obvious motor or sensory deficits. Coordination appears grossly intact. Speech is normal. Skin: Skin is warm and dry and no rashes or lesions are noted. Psychiatric: Cooperative, appropriate mood & affect, normal judgment. Limitations: no limitations Course Vital Signs 04/12/18 04/12/18 11:31 13:35 Temperature 97.9 F Pulse Rate 102 H 71 Respiratory 20 15 Rate Blood Pressure 141/86 126/84 O2 Sat by Pulse 100 97 Oximetry Medical Decision Making - Medical Decision Making CT the abdomen pelvis reviewed and shows 1. Diffuse fluid-filled small bowel loops and liquid stool throughout the colon. Correlate for enteritis. 2. Nonobstructing 3 mm calculus in each kidney. 3. Focal soft tissue nodularity along the posterior bladder base seems to have been present on 08/09/2016 as well. Given changes suggesting a prior TURP procedure, suspect that that represents residual soft tissue related to hypertrophic median lobe of the prostate gland that was incompletely resected. 4. Circumference bladder wall thickening likely secondary to chronic bladder wall hypertrophy. 5. Proximal to mid sigmoid diverticulitis. As read by radiologist. Patient reexamined at this time shows no signs of distress is resting comfortably. Patient's labs been reviewed. Urinalysis reviewed. Patient at this time is doing well. No recent travel or antibiotic use. Will be discharged home advised to use Imodium [id number] for diarrhea. Was given nausea medication to use for his symptoms. He is advised follow-up with family doctor next 2 days return if symptoms increase worsen. - Lab Data Result diagrams: 04/12/18 12:36 12 12:36 Lab Results 04/12/1818 04/12/18 Range/Units 12:36 12:36 13:15 WBC 4.9 (3.8-10.6) k/uL RBC 5.66 (4.30-5.90) m/uL Hgb 16.8 (13.0-17.5) gm/dL Hct 50.7 (39.0-53.0) % MCV 89.5 (80.0-100.0) fL MCH 29.6 (25.0-35.0) pg MCHC 33.1 (31.0-37.0) g/dL RDW 13.2 (11.5-15.5) % Plt Count 163 (150-450) k/uL Neutrophils % 55 % Lymphocytes % 25 % Monocytes % 11 % Eosinophils % 6 % Basophils % 1 % Neutrophils # 2.7 (1.3-7.7) k/uL Lymphocytes # 1.2 (1.0-4.8) k/uL Monocytes # 0.5 (0-1.0) k/uL Eosinophils # 0.3 (0-0.7) k/uL Basophils # 0.0 (0-0.2) k/uL Sodium 143 (137-145) mmol/L Potassium 4.3 (3.5-5.1) mmol/L Chloride 110 H (98-107) mmol/L Carbon Dioxide 26 (22-30) mmol/L Anion Gap 7 mmol/L BUN 23 H (9-20) mg/dL Creatinine 1.21 (0.66-1.25) mg/dL Est GFR (CKD-EPI)AfAm 75 (>60 ml/min/1.73 sqM) Est GFR (CKD-EPI)NonAf 65 (>60 ml/min/1.73 sqM) Glucose 112 H (74-99) mg/dL Calcium 8.9 (8.4-10.2) mg/dL Total Bilirubin 0.5 (0.2-1.3) mg/dL AST 57 (17-59) U/L ALT 59 (21-72) U/L Alkaline Phosphatase 65 (38-126) U/L Total Protein 7.1 (6.3-8.2) g/dL Albumin 4.2 (3.5-5.0) g/dL Amylase 50 (30-110) U/L Lipase 43 (23-300) U/L Urine Color Yellow Urine Appearance Clear (Clear) Urine pH 5.5 (5.0-8.0) Urine Protein Trace H (Negative) Urine Glucose (UA) Negative (Negative) Urine Ketones Negative (Negative) Urine Blood Negative (Negative) Urine Nitrite Negative (Negative) Urine Bilirubin Negative (Negative) Urine Urobilinogen <2.0 (<2.0) mg/dL Ur Leukocyte Esterase Negative (Negative) Disposition Clinical Impression: Enteritis Disposition: HOME SELF-CARE Condition: Good Instructions: Enteritis (ED) Additional Instructions: Please use medication as discussed. Please follow-up with family doctor in the next 2 days of symptoms have not improved. Please return to emergency room if the symptoms increase or worsen or for any other concerns. Is patient prescribed a controlled substance at d/c from ED?: No Referrals: Juan Mathru MD [Primary Care Provider] - 1-2 days Time of Disposition: 13:59
[2018-04-12 12:57] LABS: Basophils % (A) 1 %; Eosinophils # (A) 0.3 k/uL (0-0.7); Eosinophils % (A) 6 %; HCT 50.7 % (39.0-53.0); HGB 16.8 gm/dL (13.0-17.5); Lymphocytes # (A) 1.2 k/uL (1.0-4.8); Lymphocytes % (A) 25 %; MCH 29.6 pg (25.0-35.0); MCHC 33.1 g/dL (31.0-37.0); MCV 89.5 fL (80.0-100.0); Mean Platelet Volume 8.8; Monocytes # (A) 0.5 k/uL (0-1.0); Monocytes % (A) 11 %; Neutrophils # (A) 2.7 k/uL (1.3-7.7); Neutrophils % (A) 55 %; Platelet Count 163 k/uL (150-450); RBC 5.66 m/uL (4.30-5.90); RDW 13.2 % (11.5-15.5); WBC 4.9 k/uL (3.8-10.6)
[2018-04-12 13:12] LABS: Albumin 4.2 g/dL (3.5-5.0); Calcium 8.9 mg/dL (8.4-10.2); Potassium 4.3 mmol/L (3.5-5.1); Total Bilirubin 0.5 mg/dL (0.2-1.3); Total Protein 7.1 g/dL (6.3-8.2)
--- NOTE | 2018-04-12 13:32 | CT ---
EXAMINATION TYPE: CT abdomen pelvis w con DATE OF EXAM: 04/12/2018 COMPARISON: 08/09/2016 HISTORY: 62-year-old male with abdominal pain TECHNIQUE: Contiguous axial scanning of the abdomen and pelvis following administration of 100 ml Iso pamela 300 IV contrast. Delayed images through the kidneys and coronal/sagittal reconstructions perform ed. CT DLP: 787.5 mGycm Automated exposure control for dose reduction was used. FINDINGS: Heart normal size without pericardial effusion. Lung bases clear without pleural effusion. No focal liver lesion seen or biliary ductal dilatation. Portal venous system is patent. Gallbladder, adrenal glands, spleen, and pancreas show no gross adenopathy. Nonobstructive 3 mm calculus lower pole of each kidney. Symmetric uptake and excretion of contrast fr om both kidneys. A couple tiny subcentimeter hypodensities in the left kidney too small for accurate CT characterization, likely cysts. Some scattered prominent mesenteric lymph nodes measure up to 5 mm. Extensive fluid-filled small christa l loops with liquid stool seen throughout the colon. No abnormal bowel dilatation. Normal appendix. No pericolonic inflammatory change though there is proximal to mid sigmoid diverticu losis. Mild circumferential bladder wall thickening. There is mural based nodularity seen along the posterio r bladder base, sagittal image 60 that has an overall similar appearance as compared to 08/09/2016. The re is borderline widening extending into the prostate gland suggesting prior TURP with the prostate g land measuring 5.2 cm wide. No abnormal fluid collection in the pelvis or pelvic lymphadenopathy. Bones: No osseous destructive process. IMPRESSION: 1. DIFFUSE FLUID-FILLED SMALL BOWEL LOOPS AND LIQUID STOOL THROUGHOUT COLON. CORRELATE FOR ENTERITIS. 2. A NONOBSTRUCTIVE 3 MM CALCULUS IN EACH KIDNEY. 3. FOCAL SOFT TISSUE NODULARITY ALONG THE POSTERIOR BLADDER BASE SEEMS TO HAVE BEEN PRESENT ON 08/10/19 17 WELL. GIVEN CHANGES SUGGESTING PRIOR TURP, SUSPECT THAT THIS REPRESENTS RESIDUAL SOFT TISSUE RE LATING TO HYPERTROPHIED MEDIAN LOBE OF THE PROSTATE GLAND THAT WAS INCOMPLETELY RESECTED. STABILITY M AKES A UROTHELIAL LESION UNLIKELY. 4. CIRCUMFERENTIAL BLADDER WALL THICKENING LIKELY SECONDARY TO CHRONIC BLADDER WALL HYPERTROPHY. 5. PROXIMAL TO MID SIGMOID DIVERTICULOSIS.
[2018-04-12 13:39] LABS: Appearance,Urine Clear (Clear); Bilirubin,Urine Negative (Negative); Blood,Urine Negative (Negative); Color,Urine Yellow; Glucose,Urine (UA) Negative (Negative); Ketones,Urine Negative (Negative); Leukocyte Esterase,Urine Negative (Negative); Nitrite,Urine Negative (Negative); PH, Urine 5.5 (5.0-8.0); Protein,Urine Trace (Negative); Urobilinogen,Urine <2.0 mg/dL (<2.0)
[2018-04-12 14:09] VITALS: BP 131/86; PULSE 78; RESP 18; TEMP 97.8
== END 2018-04-12 14:05 | disposition home or self-care (01) ==
LOC: EC 11:27
DX: K52.9 Noninfective gastroenteritis and colitis, unspecified (principal); N20.0 Calculus of kidney; K57.32 Diverticulitis of large intestine without perforation or abscess without bleeding; E78.5 Hyperlipidemia, unspecified; I10 Essential (primary) hypertension; Z87.891 Personal history of nicotine dependence; Z79.82 Long term (current) use of aspirin; Z79.899 Other long term (current) drug therapy; Z88.4 Allergy status to anesthetic agent
CPT/HCPCS: 36415; 80053; 82150; 83690; 85025; 81003; 74177; 99284; 96360; 96361; Q9967

== ENCOUNTER → 2018-04-13 | Outpatient (CLI) | payer MEDICAID ==
[2018-04-13 08:31] LABS: Basophils % (A) 1 %; Eosinophils # (A) 0.3 k/uL (0-0.7); Eosinophils % (A) 6 %; HCT 50.5 % (39.0-53.0); HGB 16.6 gm/dL (13.0-17.5); Lymphocytes # (A) 1.7 k/uL (1.0-4.8); Lymphocytes % (A) 33 %; MCH 29.9 pg (25.0-35.0); MCHC 32.8 g/dL (31.0-37.0); MCV 91.1 fL (80.0-100.0); Mean Platelet Volume 7.9; Monocytes # (A) 0.5 k/uL (0-1.0); Monocytes % (A) 9 %; Neutrophils # (A) 2.5 k/uL (1.3-7.7); Neutrophils % (A) 49 %; Platelet Count 192 k/uL (150-450); RBC 5.55 m/uL (4.30-5.90); RDW 13.6 % (11.5-15.5); WBC 5.1 k/uL (3.8-10.6)
[2018-04-13 17:39] LABS: Albumin 4.6 g/dL (3.80-4.90); Albumin/Globulin Ratio 2.42 (1.20-2.10); Anion Gap 8.1 mmol/L (4.00-12.00); Calcium 8.5 mg/dL (8.7-10.3); Carbon Dioxide 24.9 mmol/L (21.6-31.8); Globulin 1.9 g/dL (2.1-3.7); LDL Cholesterol,Calculated 92.6 mg/dL (0.0-131.0); Potassium 3.9 mmol/L (3.5-5.5); Total Bilirubin 0.4 mg/dL (0.2-1.2); Total Protein 6.5 g/dL (6.2-8.2); VLDL Calculation 16.4 mg/dL (5.00-40.00)
[2018-04-14 10:50] LABS: T4/T8 Ratio (CD4:CD8) 1.3 (1.0-3.7)
== END | disposition home or self-care (01) ==
LOC: LABWHC1 07:43
PROVIDERS: ATTEND Internal Medicine Infectious Disease
DX: B20 Human immunodeficiency virus [HIV] disease (principal); E78.00 Pure hypercholesterolemia, unspecified; Z91.09 Other allergy status, other than to drugs and biological substances
CPT/HCPCS: 36415; 80053; 80061; 85025; 86360; 87536

== ENCOUNTER 2018-04-25 09:20 | Day surgery (SDC) | payer MEDICAID ==
[2018-04-21 14:25] VITALS: BMI 26.3
[~2018-04-25 09:20] MED LIST changes: -LACTATED RINGERS 1,000 ML IV SCH; +SODIUM CHLORIDE 0.9% 500 ML 500 ML IV SCH
[2018-04-25 09:41] VITALS: TEMP 97.8
[2018-04-25] MEDS ORDERED: LACTATED RINGERS 1,000 ML IV ONE (09:47)
--- NOTE | 2018-04-25 11:22 | P.PCN ---
Date of Procedure: 04/25/18 Procedure(s) Performed: PREOPERATIVE DIAGNOSIS: 1-Lumbar Spondylosis with Facet Arthropathy without myelopathy. POSTOPERATIVE DIAGNOSIS: 1- Lumbar Spondylosis with Facet Arthropathy without myelopathy. PROCEDURES : Left Radiofrequency thermocoagulation, L3-L4, L4-L5, and L5-S1 medial branch, with fluoroscopic guidance ANESTHESIA: Moderate sedation with intravenous versed 2 mg and fentaneyl 100 mcg, and local infiltration with Ropivacaine 0.5 % . EBL: Minimal PROCEDURE INDICATION: The patient with low back pain secondary to lumbar facet arthropathy who had more than 50% relief of her pain with previous diagnostic lumbar medial branch block with bupivacaine. PROCEDURE DESCRIPTION / TECHNIQUE: The patient was seen and identified in the preoperative area. Risks, benefits, complications, including but not limited to risk of infection ,bleeding , allergic reactions to the medications and no complete pain releife , and alternatives were discussed with the patient, the patient agreed to proceed with the procedure and signed the consent. IV was started. Vital signs remained stable throughout the procedure. Patient was taken to the OR and time out was completed. The patient was placed in the prone position on the procedure table. The lumber area was prepped and draped in the usual sterile fashion. . Vital signs were closely monitored during the procedure .IV sedation was used during the procedure to decrease patients anxiety. Using AP and then oblique fluoroscopy, the ``eye of the Morris dog corresponding to the connection between the superior and transverse articular processes of left L3, L4, and L5 were identified, marked, and localized with 1 % lidocaine. Subsequently, a [id number] radiofrequency cannula with a 10- mm active tip was advanced guided by fluoroscopy to each of the``eyes of the Morris dog at left L3, L4, and L5. Each site then underwent sensory testing at 50 Hz and 0 to 1 volt and motor testing at 2.5 Hz and 0 to 3 volt with local stimulation, but no radicular symptoms down the legs. Thereafter the left L3-4 , L4-5, and L5-S1 sites underwent radiofrequency thermocoagulation at 80 degrees celsius for 90 seconds after injecting 0.5 ml of PF Ropivacaine 1ml, then after the thermocoagulation done , 1 ml of the block solution containing Kenalog 40 mg and 3 ml of Ropivacaine 0.5% was injected at the left L3-4 , L4 -5 , and L5-S1, levels after negative aspiration of CSF and blood and with no paresthesias. Cannulas were retracted while injecting lidocaine 1% until the needle is out. At the end of the procedure, the skin was cleansed and bandages were applied. COMPLICATIONS: No acute complications. DISPOSITION / PLANS: The patient was placed in a supine position and transferred to the recovery area in a stable condition for observation and was discharged from the recovery room after meeting discharge criteria. Home discharge instructions given to the patient by the staff. The patient was reexamined prior to discharge. The patient will schedule a follow up in the clinic in 2-4 weeks.
[2018-04-25] MEDS ORDERED: IV FLUID CONTINUATION 1,000 ML IV ONE (11:28)
[2018-04-25 11:30] VITALS: RESP 16
[2018-04-25 11:51] VITALS: BP 132/92; PULSE 78
--- NOTE | 2018-04-25 12:42 | FL ---
EXAMINATION TYPE: FL guided pain mgmt statistic DATE OF EXAM: 04/25/2018 HISTORY: Flouroscopy time 8 seconds of fluoroscopy provided. IMPRESSION: 1. Fluoroscopy time.
== END 2018-04-25 12:06 | disposition home or self-care (01) ==
LOC: ORPAIN 09:20
PROVIDERS: ATTEND Specialist
DX: M47.816 Spondylosis without myelopathy or radiculopathy, lumbar region (principal); I10 Essential (primary) hypertension; Z88.8 Allergy status to other drugs, medicaments and biological substances
CPT/HCPCS: 64635; 64636 ×2; J2250; J3301; J3010; 99152

== ENCOUNTER → 2018-06-13 | Outpatient (CLI) | payer MEDICAID ==
[2018-06-13 14:33] VITALS: BP 124/84; PULSE 85; RESP 16
--- NOTE | 2018-06-13 18:52 | P.PAINPG ---
Subjective Progress Note Date: 06/13/18 This is follow-up visit for this patient with a history of severe and chronic low back pain secondary to lumbar herniated disc disease, lumbar spondylosis with facet arthropathy, we have done lumbar epidural steroid injections 2 and he had very minimal benefit for short time , recently we have done at the frequency ablation of the medial branch lumbar area on the left side at L3 4/L4 5/L5-S1 he reported his pain improved significantly , and he had improvement in his ability to do activities of daily livings patient currently on Van 5/325 every 6-8 hours when necessary , he continued to have some back pain issues especially when he is working . Patient denies any side effects of the medication, denies excessive drowsiness or sleepiness, denies suicidal ideation, and reports that the current pain medication is helping To control the pain and improve activity of daily living . Patient denies any motor or sensory deficit, denies change in bowel movement or urination, patient denies any fever or night sweats Should continue to have some pain when he is working , and patient here for follow-up visit and medication refill Physical Examinations : 1-Constitutiona : Cooperative , not in acute distress . 2-HEENT : nech ; supple , no Lymphadenopathy , normal thyroid size . Pupils 3 mm midline . no nystagmus 3- neurologic : Cranial nerve II to XII intact , no focal neurological deffecit . 8-psychatric : alert , oriented X 3 , appropriate affect , intact judgment and insight . 9-Lymphatic : no Lymphadenopathy . 10- musculoskeltal : , Lumber spine = normal moter stegnth lower extremities ,thigh and legs .09/10 Assessment and plan= chronic low back pain secondary to lumbar herniated disc disease , lumbar spondylosis with lumbar facet arthropathy , He had minimum benefit and for short-term after lumbar epidural steroid injections, status post radiofrequency ablation of the medial branch left side lumbar area Pain improved significantly, activity of daily living; improved chronic and current use of high-risk medication (opioids) Patient denies any side effects of the current pain medication and the current treatment/medication ML and the patient to do activity of daily living , Diagnoses, prognosis, treatment options, including but not limited to physical therapy, medication management, interventional therapies, and surgery, were discussed with the patient All the questions answered Patient signed the narcotic agreement, and he was orally counseled, not to overuse, not to abuse, not to Divert , not tp sell pain medication, and to take it as prescribed only, Patient was counseled not to drive or operate heavy equipment while using narcotic medication, and advised not to use alcohol or any Illicit drugs while using the narcotis, the patient's verbalized understanding that lack of compliance with any of the above instructions and will likely to cause discharge from the pain service, not to renew his narcotic prescriptions Medication managements= patient will be given prescription refills for Van 5/325 every 6 hours when necessary dispensed 45with no refile patient will follow up in the pain clinic in 2 months. MAPS reviewed and it was appropriate Objective - Vital Signs Vital signs: Vital Signs Temp Pulse 85 06/13/18 14:27 Resp 16 06/13/18 14:27 BP 124/84 06/13/18 14:27 Pulse Ox 97 06/13/18 14:27 Intake & Output 06/12/18 06/13/18 06/13/18 18:59 06:59 18:59 Weight 73.936 kg PQRS Measure Charge Sheet Measure #130: Documentation of Current Meds in Medical Chart: Patient's medications documented in chart Measure #226: Tobacco Use: Screen & Cessation Intervention: Pt not a tobacco user Measure #111: Pneumonia Vaccination: Pneumococcal vaccine administered or previously received Measure #47: Advance Care Plan: Advance care planning discussed & documented, pt chose/unable to give Measure #412: Opioid Treatment Agreement: Documented signed opioid trtmnt agreemnt min once during opioid trtmnt Measure #408: Opioid Therapy Follow-up Evaluation: Patient had f/u eval minimum every 3 months during opioid therapy Measure #317: Preventitive Care & Scrn High Bld Press & F/U: Normal blood pressure, f/u not required Measure #128: Body Mass Index (BMI) Screening & Follow-up: BMI documented ABOVE normal parameters - f/u documented Measure #131: Pain Assessment & Follow-up: Pain positive & plan documented, Follow-up scheduled Measure #431: Unhealthy Alcohol Use Preventative Care & Scrn: Patient not identified as an unhealthy alcohol user PQRS Narrative: Smoking Status Former smoker Do You Want the Pneumonia Vaccine Up to Date Vaccine AT THIS TIME? Blood Pressure 124/84 Pain Intensity [Left Lower 0 Back] Scale Used Numeric (1 - 10) Hx Alcohol Use (MH) Yes: social Home Medications: Ambulatory Orders Fenofibrate [Tricor] 54 mg PO HS 12/03/14 Pravastatin Sodium [Pravachol] 20 mg PO HS 12/03/14 Aspirin 81 mg PO HS 08/09/16 Ergocalciferol [Vitamin D2] 50,000 unit PO MO 08/09/16 amLODIPine [Norvasc] 10 mg PO DAILY 04/12/18 Controlled Substance Measures - Controlled Substance Measures Is patient prescribed a controlled substance at discharge?: Yes When asked, does pt state using other controlled substances?: No If prescribed controlled substance>3 days was MAPS reviewed?: Yes If Rx opioid, was Start Talking consent form obtained?: Yes If opioid is for acute pain is fill amount 7 days or less?: No Was information provided regarding opioid addiction?: Yes
== END | disposition home or self-care (01) ==
LOC: PNWHC3 13:59
PROVIDERS: ATTEND Specialist
DX: G89.29 Other chronic pain (principal); M54.5 Low back pain; M51.36 Other intervertebral disc degeneration, lumbar region; M47.816 Spondylosis without myelopathy or radiculopathy, lumbar region; M46.86 Other specified inflammatory spondylopathies, lumbar region; F11.90 Opioid use, unspecified, uncomplicated; Z71.89 Other specified counseling; Z87.891 Personal history of nicotine dependence; Z79.82 Long term (current) use of aspirin
CPT/HCPCS: 99211

== ENCOUNTER → 2018-08-10 | Outpatient (CLI) | payer MEDICAID ==
[2018-08-10 11:10] LABS: Basophils # (A) 0.1 k/uL (0-0.2); Basophils % (A) 1 %; Eosinophils # (A) 0.3 k/uL (0-0.7); Eosinophils % (A) 7 %; HCT 48.6 % (39.0-53.0); HGB 16.3 gm/dL (13.0-17.5); Lymphocytes # (A) 1.4 k/uL (1.0-4.8); Lymphocytes % (A) 30 %; MCH 29.9 pg (25.0-35.0); MCHC 33.6 g/dL (31.0-37.0); Mean Platelet Volume 9.2; Monocytes # (A) 0.4 k/uL (0-1.0); Monocytes % (A) 8 %; Neutrophils # (A) 2.3 k/uL (1.3-7.7); Neutrophils % (A) 51 %; Platelet Count 204 k/uL (150-450); RBC 5.46 m/uL (4.30-5.90); RDW 13.3 % (11.5-15.5); WBC 4.5 k/uL (3.8-10.6)
[2018-08-10 16:45] LABS: Albumin 4.5 g/dL (3.80-4.90); Albumin/Globulin Ratio 2.5 (1.60-3.17); Anion Gap 10.3 mmol/L (4.00-12.00); Carbon Dioxide 28.7 mmol/L (21.6-31.8); Globulin 1.8 g/dL (1.6-3.3); Total Bilirubin 0.6 mg/dL (0.2-1.2); Total Protein 6.3 g/dL (6.2-8.2)
[2018-08-11 10:29] LABS: T4/T8 Ratio (CD4:CD8) 1.3 (1.0-3.7)
== END | disposition home or self-care (01) ==
LOC: LABWHC1 09:37
PROVIDERS: ATTEND Internal Medicine Infectious Disease
DX: B20 Human immunodeficiency virus [HIV] disease (principal); Z91.09 Other allergy status, other than to drugs and biological substances
CPT/HCPCS: 36415; 80053; 85025; 86360; 86803; 87536

== ENCOUNTER 2018-11-10 18:15 | Emergency (ER) | payer MEDICAID ==
[2018-11-10] MEDS ORDERED: ACETAMINOPHEN TAB 500 MG TAB PO STA (18:56)
[2018-11-10] MEDS ORDERED: SODIUM CHLORIDE 0.9% 500 ML 500 ML IV STA (18:56)
[2018-11-10] MEDS ORDERED: SODIUM CHLORIDE 0.9% 1,000 ML IV STA ×2 (18:56)
[2018-11-10] MEDS ORDERED: IBUPROFEN 600 MG TAB PO STA (18:56)
--- NOTE | 2018-11-10 18:56 | ED ---
Fever HPI - General Chief Complaint: Fever Stated Complaint: Rash Time Seen by Provider: 11/10/18 18:55 Source: patient, RN notes reviewed, old records reviewed Mode of arrival: ambulatory Limitations: no limitations - History of Present Illness Initial Comments: Is a 63-year-old male the ER for evaluation. Patient states generalized does not feel well. Diffuse body aches and pains, weakness and fever. Persistent fever for a few days now. No cough or congestion or nausea vomiting or diarrhea. He also has rash rash on the anterior body trauma. No travel history no sick contacts. Patient does have immunizations up-to-date MD Complaint: fever, weakness -: days(s) Temperature Source: subjective Associated Symptoms: chills, myalgias, nausea Treatments Prior to Arrival: none - Related Data Home Medications Medication Instructions Recorded Confirmed Fenofibrate [Tricor] 54 mg PO HS 12/03/14 11/12/18 Pravastatin Sodium [Pravachol] 20 mg PO HS 12/03/14 11/12/18 Ergocalciferol [Vitamin D2] 50,000 unit PO MO 08/09/16 11/12/18 amLODIPine [Norvasc] 10 mg PO DAILY 04/12/18 11/12/18 Escitalopram [Lexapro] 10 mg PO DAILY 11/12/18 11/12/18 Allergies Allergy/AdvReac Type Severity Reaction Status Date / Time Anesthetics - Amide Type AdvReac Nausea & Verified 11/12/18 11:17 Vomiting Review of Systems ROS Statement: Those systems with pertinent positive or pertinent negative responses have been documented in the HPI. ROS Other: All systems not noted in ROS Statement are negative. Past Medical History Past Medical History: Hyperlipidemia, Hypertension, Prostate Disorder History of Any Multi-Drug Resistant Organisms: None Reported Past Surgical History: Prostate Surgery Additional Past Surgical History / Comment(s): hemorrhoidectomy Past Anesthesia/Blood Transfusion Reactions: Postoperative Nausea & Vomiting (PONV) Past Psychological History: No Psychological Hx Reported Smoking Status: Former smoker - Past Family History Mother Family Medical History: Cancer General Exam Limitations: no limitations General appearance: alert, in no apparent distress Head exam: Present: atraumatic, normocephalic, normal inspection Eye exam: Present: normal appearance, PERRL, EOMI. Absent: scleral icterus, co njunctival injection, periorbital swelling ENT exam: Present: normal exam, mucous membranes moist Neck exam: Present: normal inspection. Absent: tenderness, meningismus, lymphadenopathy Respiratory exam: Present: normal lung sounds bilaterally. Absent: respiratory distress, wheezes, rales, rhonchi, stridor Cardiovascular Exam: Present: regular rate, normal rhythm, normal heart sounds. Absent: systolic murmur, diastolic murmur, rubs, gallop, clicks GI/Abdominal exam: Present: soft, normal bowel sounds. Absent: distended, tenderness, guarding, rebound, rigid Extremities exam: Present: normal inspection, full ROM, normal capillary refill. Absent: tenderness, pedal edema, joint swelling, calf tenderness Back exam: Present: normal inspection Neurological exam: Present: alert, oriented X3, CN II-XII intact Psychiatric exam: Present: normal affect, normal mood Skin exam: Present: warm, dry, intact, normal color. Absent: rash Course Vital Signs 11/10/18 11/10/18 11/10/18 18:37 19:37 19:40 Temperature 100.2 F H Pulse Rate 65 84 Respiratory 18 20 20 Rate Blood Pressure 109/72 110/77 O2 Sat by Pulse 100 98 Oximetry 11/10/18 11/10/18 11/10/18 20:00 20:30 20:51 Temperature 98.8 F Pulse Rate 85 74 87 Respiratory 20 18 18 Rate Blood Pressure 94/57 141/83 118/79 O2 Sat by Pulse 96 96 96 Oximetry - Reevaluation(s) Reevaluation #1: Medical record is reviewed Symptoms improved with antihistamines and fever control, hydration Medical Decision Making - Medical Decision Making 63 male the ER for evaluation presents today for evaluation regarding fever and rash. Myalgias weakness. No significant acute cause found. Patient will be continue treating for fever hydration and discharged home - Lab Data Result diagrams: 11/10/18 19:30 11/10/18 19:30 Lab Results 11/10/18 11/10/18 11/10/18 Range/Units 19:30 19:30 19:30 WBC 8.3 (3.8-10.6) k/uL RBC 4.92 (4.30-5.90) m/uL Hgb 14.9 (13.0-17.5) gm/dL Hct 44.5 (39.0-53.0) % MCV 90.5 (80.0-100.0) fL MCH 30.2 (25.0-35.0) pg MCHC 33.4 (31.0-37.0) g/dL RDW 14.7 (11.5-15.5) % Plt Count 149 L (150-450) k/uL Neutrophils % 82 % Lymphocytes % 8 % Monocytes % 6 % Eosinophils % 2 % Basophils % 1 % Neutrophils # 6.8 (1.3-7.7) k/uL Lymphocytes # 0.7 L (1.0-4.8) k/uL Monocytes # 0.5 (0-1.0) k/uL Eosinophils # 0.2 (0-0.7) k/uL Basophils # 0.1 (0-0.2) k/uL Sodium 138 (137-145) mmol/L Potassium 4.2 (3.5-5.1) mmol/L Chloride 106 (98-107) mmol/L Carbon Dioxide 22 (22-30) mmol/L Anion Gap 10 mmol/L BUN 17 (9-20) mg/dL Creatinine 1.18 (0.66-1.25) mg/dL Est GFR (CKD-EPI)AfAm 77 (>60 ml/min/1.73 sqM) Est GFR (CKD-EPI)NonAf 66 (>60 ml/min/1.73 sqM) Glucose 97 (74-99) mg/dL Plasma Lactic Acid Jero (0.7-2.0) mmol/L Calcium 8.7 (8.4-10.2) mg/dL Phosphorus 4.2 (2.5-4.5) mg/dL Magnesium 2.2 (1.6-2.3) mg/dL Total Bilirubin 0.6 (0.2-1.3) mg/dL AST 20 (17-59) U/L ALT 11 L (21-72) U/L Alkaline Phosphatase 50 (38-126) U/L Total Protein 6.5 (6.3-8.2) g/dL Albumin 3.9 (3.5-5.0) g/dL Lipase 50 (23-300) U/L Urine Color Urine Appearance (Clear) Urine pH (5.0-8.0) Ur Specific [place] (1.001-1.035) Urine Protein (Negative) Urine Glucose (UA) (Negative) Urine Ketones (Negative) Urine Blood (Negative) Urine Nitrite (Negative) Urine Bilirubin (Negative) Urine Urobilinogen (<2.0) mg/dL Ur Leukocyte Esterase (Negative) Urine WBC (0-5) /hpf Ur Squamous Epith Cells (0-4) /hpf Urine Mucus (None) /hpf Influenza Type A RNA Not Detected (Not Detectd) Influenza Type B (PCR) Not Detected (Not Detectd) 11/10/18 11/10/18 Range/Units 19:30 19:35 WBC (3.8-10.6) k/uL RBC (4.30-5.90) m/uL Hgb (13.0-17.5) gm/dL Hct (39.0-53.0) % MCV (80.0-100.0) fL MCH (25.0-35.0) pg MCHC (31.0-37.0) g/dL RDW (11.5-15.5) % Plt Count (150-450) k/uL Neutrophils % % Lymphocytes % % Monocytes % % Eosinophils % % Basophils % % Neutrophils # (1.3-7.7) k/uL Lymphocytes # (1.0-4.8) k/uL Monocytes # (0-1.0) k/uL Eosinophils # (0-0.7) k/uL Basophils # (0-0.2) k/uL Sodium (137-145) mmol/L Potassium (3.5-5.1) mmol/L Chloride (98-107) mmol/L Carbon Dioxide (22-30) mmol/L Anion Gap mmol/L BUN (9-20) mg/dL Creatinine (0.66-1.25) mg/dL Est GFR (CKD-EPI)AfAm (>60 ml/min/1.73 sqM) Est GFR (CKD-EPI)NonAf (>60 ml/min/1.73 sqM) Glucose (74-99) mg/dL Plasma Lactic Acid Jero 1.4 (0.7-2.0) mmol/L Calcium (8.4-10.2) mg/dL Phosphorus (2.5-4.5) mg/dL Magnesium (1.6-2.3) mg/dL Total Bilirubin (0.2-1.3) mg/dL AST (17-59) U/L ALT (21-72) U/L Alkaline Phosphatase (38-126) U/L Total Protein (6.3-8.2) g/dL Albumin (3.5-5.0) g/dL Lipase (23-300) U/L Urine Color Yellow Urine Appearance Cloudy (Clear) Urine pH 5.5 (5.0-8.0) Ur Specific [place] 1.031 (1.001-1.035) Urine Protein 1+ H (Negative) Urine Glucose (UA) Negative (Negative) Urine Ketones Negative (Negative) Urine Blood Negative (Negative) Urine Nitrite Negative (Negative) Urine Bilirubin Negative (Negative) Urine Urobilinogen 2.0 (<2.0) mg/dL Ur Leukocyte Esterase Trace H (Negative) Urine WBC 5 (0-5) /hpf Ur Squamous Epith Cells 3 (0-4) /hpf Urine Mucus Many H (None) /hpf Influenza Type A RNA (Not Detectd) Influenza Type B (PCR) (Not Detectd) - Radiology Data Radiology results: report reviewed (Chest x-rays negative for acute disease), image reviewed Disposition Clinical Impression: Viral syndrome, Fever, Rash Disposition: HOME SELF-CARE Condition: Good Instructions (If sedation given, give patient instructions): Fever in Adults (ED), Viral Syndrome (ED), Viral Exanthem (ED) Is patient prescribed a controlled substance at d/c from ED?: No Referrals: Juan Mathur MD [Primary Care Provider] - 1-2 days
[2018-11-10 19:44] LABS: Basophils # (A) 0.1 k/uL (0-0.2); Basophils % (A) 1 %; Eosinophils # (A) 0.2 k/uL (0-0.7); Eosinophils % (A) 2 %; HCT 44.5 % (39.0-53.0); HGB 14.9 gm/dL (13.0-17.5); Lymphocytes # (A) 0.7 k/uL (1.0-4.8); Lymphocytes % (A) 8 %; MCH 30.2 pg (25.0-35.0); MCHC 33.4 g/dL (31.0-37.0); MCV 90.5 fL (80.0-100.0); Mean Platelet Volume 8.6; Monocytes # (A) 0.5 k/uL (0-1.0); Monocytes % (A) 6 %; Neutrophils # (A) 6.8 k/uL (1.3-7.7); Neutrophils % (A) 82 %; Platelet Count 149 k/uL (150-450); RBC 4.92 m/uL (4.30-5.90); RDW 14.7 % (11.5-15.5); WBC 8.3 k/uL (3.8-10.6)
[2018-11-10 19:56] LABS: Albumin 3.9 g/dL (3.5-5.0); Calcium 8.7 mg/dL (8.4-10.2); Magnesium 2.2 mg/dL (1.6-2.3); Phosphorus 4.2 mg/dL (2.5-4.5); Potassium 4.2 mmol/L (3.5-5.1); Total Bilirubin 0.6 mg/dL (0.2-1.3); Total Protein 6.5 g/dL (6.3-8.2)
[2018-11-10 19:58] LABS: Appearance,Urine Cloudy (Clear); Bilirubin,Urine Negative (Negative); Blood,Urine Negative (Negative); Color,Urine Yellow; Glucose,Urine (UA) Negative (Negative); Ketones,Urine Negative (Negative); Leukocyte Esterase,Urine Trace (Negative); Mucus,Urine Many /hpf; Nitrite,Urine Negative (Negative); PH, Urine 5.5 (5.0-8.0); Protein,Urine 1+ (Negative); Specific Gravity,Urine 1.031 (1.001-1.035); Squamous Epithelial Cell,Urine 3 /hpf (0-4); WBC,Urine 5 /hpf (0-5)
[2018-11-10] MEDS ORDERED: FAMOTIDINE 20 MG/2 ML VIAL IV STA (20:20)
[2018-11-10] MEDS ORDERED: DEXAMETHASONE SOD PHOSPHATE 10 MG/ML 1 ML VIAL IV STA (20:20)
[2018-11-10] MEDS ORDERED: diphenhydrAMINE 50 MG/ML 1 ML VIAL IVP STA (20:20)
--- NOTE | 2018-11-10 20:31 | XR ---
EXAMINATION TYPE: XR chest 2V DATE OF EXAM: 11/10/2018 COMPARISON: 02/19/2015 HISTORY: Cough TECHNIQUE: Frontal and lateral views of the chest are obtained. FINDINGS: Heart and mediastinum are normal. Lungs are clear. Diaphragm is normal. Bony thorax appear s normal. IMPRESSION: Normal chest. No change.
[2018-11-10 20:36] VITALS: RESP 18
[2018-11-10 20:52] VITALS: BP 118/79; PULSE 87; TEMP 98.8
== END 2018-11-10 21:29 | disposition home or self-care (01) ==
LOC: EC 18:15
DX: B34.9 Viral infection, unspecified (principal); R21 Rash and other nonspecific skin eruption; E78.5 Hyperlipidemia, unspecified; I10 Essential (primary) hypertension; Z87.891 Personal history of nicotine dependence; Z88.4 Allergy status to anesthetic agent; Z79.899 Other long term (current) drug therapy
CPT/HCPCS: 36415; 80053; 83605; 83690; 83735; 84100; 85025; 81001; 87040; 87086; 87077; 87186; 87502; 71046; 99284; 96374; 96375 ×2; 96361 ×2; J1200; J1100

== ENCOUNTER 2018-11-12 09:41 | Inpatient (IN) | payer MEDICAID ==
[2018-11-12] MEDS ORDERED: ACETAMINOPHEN TAB 500 MG TAB PO STA (10:16)
[2018-11-12] MEDS ORDERED: diphenhydrAMINE 50 MG/ML 1 ML VIAL IVP STA (10:16)
[2018-11-12] MEDS ORDERED: methylPREDNISolone SOD SUCCI 125 MG/2 ML VIAL IV STA (10:16)
[2018-11-12] MEDS ORDERED: SODIUM CHLORIDE 0.9% 1,000 ML IV STA (10:16)
--- NOTE | 2018-11-12 10:52 | ED ---
Fever HPI - General Chief Complaint: Fever Stated Complaint: fever Time Seen by Provider: 11/12/18 10:03 Source: patient Mode of arrival: ambulatory Limitations: no limitations - History of Present Illness Initial Comments: Patient is a 63-year-old male presenting to the emergency Department with complaints of a fever and rash 4 days. Patient also reports coughing during this time. Patient states he was here 2 days ago for same complaint and felt be tter while he was here but when he went home the rash and fever has returned. Patient states he did chest x-ray and flu test were both negative. Patient states he is not feeling better and is not able to eat and drink. Patient denies any recent travel except for a train ride one month ago to [place]. Patient denies any recent antibiotic use, but admits to being treated for an ear infection one month ago. Patient denies ever having this rash before. Patient denies shortness of breath, chest pain, nausea, vomiting, urinary complaints. Patient admits to mild diarrhea for the last 2 days. Upon further questioning, patient does admit to being HIV positive and sees Dr. Mathur in infectious disease. - Related Data Home Medications Medication Instructions Recorded Confirmed Fenofibrate [Tricor] 54 mg PO HS 12/03/14 11/12/18 Pravastatin Sodium [Pravachol] 20 mg PO HS 12/03/14 11/12/18 Ergocalciferol [Vitamin D2] 50,000 unit PO MO 08/09/16 11/12/18 amLODIPine [Norvasc] 10 mg PO DAILY 04/12/18 11/12/18 Escitalopram [Lexapro] 10 mg PO DAILY 11/12/18 11/12/18 Allergies Allergy/AdvReac Type Severity Reaction Status Date / Time Anesthetics - Amide Type AdvReac Nausea & Verified 11/12/18 11:17 Vomiting Review of Systems ROS Statement: Those systems with pertinent positive or pertinent negative responses have been documented in the HPI. ROS Other: All systems not noted in ROS Statement are negative. Past Medical History Past Medical History: Hyperlipidemia, Hypertension, Prostate Disorder History of Any Multi-Drug Resistant Organisms: None Reported Past Surgical History: Prostate Surgery Additional Past Surgical History / Comment(s): hemorrhoidectomy Past Anesthesia/Blood Transfusion Reactions: Postoperative Nausea & Vomiting (PONV) Past Psychological History: No Psychological Hx Reported Smoking Status: Former smoker Past Alcohol Use History: Occasional Past Drug Use History: None Reported - Past Family History Mother Family Medical History: Cancer General Exam - General Exam Comments Initial Comments: GENERAL: Patient appears fatigued, chills HEAD: Atraumatic, normocephalic. EYES: Pupils equal round and reactive to light, extraocular movements intact, sclera anicteric, conjunctiva are normal. ENT: TMs normal, nares patent, oropharynx clear without exudates. Moist mucous membranes. NECK: Normal range of motion, supple without lymphadenopathy or JVD. LUNGS: Breath sounds clear to auscultation bilaterally and equal. No wheezes rales or rhonchi. HEART: Regular rate and rhythm without murmurs, rubs or gallops. ABDOMEN: Soft, nontender, normoactive bowel sounds. No guarding, no rebound. No masses appreciated. : Deferred EXTREMITIES: Normal range of motion, no pitting or edema. No clubbing or cyanosis. NEUROLOGICAL: Cranial nerves II through XII grossly intact. Normal speech, normal gait. PSYCH: Normal mood, normal affect. Limitations: no limitations Skin exam: Present: warm, dry, rash, erythema Expanded Type of lesion: Present: rash Distribution of rash: generalized, involves palms/soles (palms) Description of rash: Present: erythematous, macular, papular Course Vital Signs 11/12/18 11/12/18 11/12/18 09:43 10:11 10:12 Temperature 102.2 F H 104.2 F H Pulse Rate 109 H Respiratory 18 22 Rate Blood Pressure 170/93 O2 Sat by Pulse 96 Oximetry 11/12/18 11/12/18 12:33 12:53 Temperature 102.1 F H 102.1 F H Pulse Rate 74 Respiratory 18 Rate Blood Pressure 91/53 O2 Sat by Pulse 95 Oximetry Medical Decision Making - Medical Decision Making Patient is a 63-year-old male with past medical history of HIV positive who presents to ER with fever and rash 3-4 days. Patient was here 2 days ago for same complaint. Chest x-ray, flu tests, labs were all within normal limits. Patient felt improvement with medications and was discharged home. Patient states that fever and rash has continued for the last 2 days and he has been unable to eat or drink. On exam patient has erythematous macular rash on his tr unk, back, face, neck, bilateral arms. Patient admits to having a cough during this past 4 days as well. CBC, CMP, lactic are all within normal limits. Repeat chest x-ray today shows suspected left mass or pneumonia and a possible small pneumothorax on the right side. Case was discussed with Dr. Art. Patient will be admitted with consult to infectious disease. Patient is okay with this plan. - Lab Data Result diagrams: 11/12/18 11:02 11/12/18 11:02 Lab Results 11/12/18 11/12/18 11/12/18 Range/Units 11:02 11:02 11:02 WBC 7.8 (3.8-10.6) k/uL RBC 4.41 (4.30-5.90) m/uL Hgb 13.5 (13.0-17.5) gm/dL Hct 39.8 (39.0-53.0) % MCV 90.2 (80.0-100.0) fL MCH 30.6 (25.0-35.0) pg MCHC 33.9 (31.0-37.0) g/dL RDW 12.8 (11.5-15.5) % Plt Count 177 (150-450) k/uL Neutrophils % 83 % Lymphocytes % 8 % Monocytes % 5 % Eosinophils % 3 % Basophils % 0 % Neutrophils # 6.4 (1.3-7.7) k/uL Lymphocytes # 0.6 L (1.0-4.8) k/uL Monocytes # 0.4 (0-1.0) k/uL Eosinophils # 0.2 (0-0.7) k/uL Basophils # 0.0 (0-0.2) k/uL Sodium 141 (137-145) mmol/L Potassium 3.7 (3.5-5.1) mmol/L Chloride 108 H (98-107) mmol/L Carbon Dioxide 24 (22-30) mmol/L Anion Gap 9 mmol/L BUN 16 (9-20) mg/dL Creatinine 1.10 (0.66-1.25) mg/dL Est GFR (CKD-EPI)AfAm 83 (>60 ml/min/1.73 sqM) Est GFR (CKD-EPI)NonAf 72 (>60 ml/min/1.73 sqM) Glucose 108 H (74-99) mg/dL Plasma Lactic Acid Jero 1.8 (0.7-2.0) mmol/L Calcium 8.4 (8.4-10.2) mg/dL Total Bilirubin 0.3 (0.2-1.3) mg/dL AST 43 (17-59) U/L ALT 17 L (21-72) U/L Alkaline Phosphatase 59 (38-126) U/L Total Protein 6.3 (6.3-8.2) g/dL Albumin 3.7 (3.5-5.0) g/dL Urine Color Urine Appearance (Clear) Urine pH (5.0-8.0) Ur Specific [place] (1.001-1.035) Urine Protein (Negative) Urine Glucose (UA) (Negative) Urine Ketones (Negative) Urine Blood (Negative) Urine Nitrite (Negative) Urine Bilirubin (Negative) Urine Urobilinogen (<2.0) mg/dL Ur Leukocyte Esterase (Negative) Urine RBC (0-5) /hpf Urine WBC (0-5) /hpf Ur Squamous Epith Cells (0-4) /hpf Urine Mucus (None) /hpf 11/12/18 Range/Units 12:30 WBC (3.8-10.6) k/uL RBC (4.30-5.90) m/uL Hgb (13.0-17.5) gm/dL Hct (39.0-53.0) % MCV (80.0-100.0) fL MCH (25.0-35.0) pg MCHC (31.0-37.0) g/dL RDW (11.5-15.5) % Plt Count (150-450) k/uL Neutrophils % % Lymphocytes % % Monocytes % % Eosinophils % % Basophils % % Neutrophils # (1.3-7.7) k/uL Lymphocytes # (1.0-4.8) k/uL Monocytes # (0-1.0) k/uL Eosinophils # (0-0.7) k/uL Basophils # (0-0.2) k/uL Sodium (137-145) mmol/L Potassium (3.5-5.1) mmol/L Chloride (98-107) mmol/L Carbon Dioxide (22-30) mmol/L Anion Gap mmol/L BUN (9-20) mg/dL Creatinine (0.66-1.25) mg/dL Est GFR (CKD-EPI)AfAm (>60 ml/min/1.73 sqM) Est GFR (CKD-EPI)NonAf (>60 ml/min/1.73 sqM) Glucose (74-99) mg/dL Plasma Lactic Acid Jero (0.7-2.0) mmol/L Calcium (8.4-10.2) mg/dL Total Bilirubin (0.2-1.3) mg/dL AST (17-59) U/L ALT (21-72) U/L Alkaline Phosphatase (38-126) U/L Total Protein (6.3-8.2) g/dL Albumin (3.5-5.0) g/dL Urine Color Yellow Urine Appearance Clear (Clear) Urine pH 5.5 (5.0-8.0) Ur Specific [place] 1.019 (1.001-1.035) Urine Protein Trace H (Negative) Urine Glucose (UA) Negative (Negative) Urine Ketones Negative (Negative) Urine Blood Small H (Negative) Urine Nitrite Negative (Negative) Urine Bilirubin Negative (Negative) Urine Urobilinogen <2.0 (<2.0) mg/dL Ur Leukocyte Esterase Negative (Negative) Urine RBC <1 (0-5) /hpf Urine WBC <1 (0-5) /hpf Ur Squamous Epith Cells <1 (0-4) /hpf Urine Mucus Rare H (None) /hpf Disposition Clinical Impression: Pneumonia, Fever, Rash Disposition: ADMITTED IP TO THIS [facility] Condition: Stable Is patient prescribed a controlled substance at d/c from ED?: No Decision Date: 11/12/18 Decision Time: 13:20
[2018-11-12 11:20] LABS: Basophils % (A) 0 %; Eosinophils # (A) 0.2 k/uL (0-0.7); Eosinophils % (A) 3 %; HCT 39.8 % (39.0-53.0); HGB 13.5 gm/dL (13.0-17.5); Lymphocytes # (A) 0.6 k/uL (1.0-4.8); Lymphocytes % (A) 8 %; MCH 30.6 pg (25.0-35.0); MCHC 33.9 g/dL (31.0-37.0); MCV 90.2 fL (80.0-100.0); Mean Platelet Volume 8.5; Monocytes # (A) 0.4 k/uL (0-1.0); Monocytes % (A) 5 %; Neutrophils # (A) 6.4 k/uL (1.3-7.7); Neutrophils % (A) 83 %; Platelet Count 177 k/uL (150-450); RBC 4.41 m/uL (4.30-5.90); RDW 12.8 % (11.5-15.5); WBC 7.8 k/uL (3.8-10.6)
[2018-11-12 11:31] LABS: Albumin 3.7 g/dL (3.5-5.0); Calcium 8.4 mg/dL (8.4-10.2); Potassium 3.7 mmol/L (3.5-5.1); Total Bilirubin 0.3 mg/dL (0.2-1.3); Total Protein 6.3 g/dL (6.3-8.2)
--- NOTE | 2018-11-12 12:25 | XR ---
EXAMINATION TYPE: XR chest 2V DATE OF EXAM: 11/12/2018 COMPARISON: 11/10/2018 TECHNIQUE: PA and lateral views submitted. HISTORY: Cough FINDINGS: There is a left suprahilar mass or area of consolidation. No effusion. Pleural reflection along the r ight apex which could represent small pneumothorax. Measures approximately 10% to 15%. Degenerative c hanges spine. IMPRESSION: 1. Suspected left perihilar mass or pneumonia. 2. Pleural reflection along the right apex. Although this may represent a small pneumothorax. Recomme nd a repeat frontal view with removal of any superficial dressing. Correlate clinically for right-joselito ed chest pain.
[2018-11-12] MEDS ORDERED: SULFAMETHOX-TMP 800-160MG 1 EACH TAB PO STA (12:56)
[2018-11-12] MEDS ORDERED: IBUPROFEN 600 MG TAB PO STA (12:56)
[2018-11-12] MEDS ORDERED: AZITHROMYCIN 500 MG in SODIUM CHLORIDE 0.9% 250 ML IVPB STA (13:06)
[2018-11-12] MEDS ORDERED: NALOXONE 0.4 MG/ML 1 ML VIAL IV PRN (13:07)
[2018-11-12] MEDS ORDERED: ONDANSETRON 4 MG/2 ML VIAL IVP PRN (13:07)
[2018-11-12] MEDS ORDERED: ACETAMINOPHEN TAB 325 MG TAB PO PRN (13:07)
[2018-11-12 13:54] LABS: Appearance,Urine Clear (Clear); Bilirubin,Urine Negative (Negative); Blood,Urine Small (Negative); Color,Urine Yellow; Glucose,Urine (UA) Negative (Negative); Ketones,Urine Negative (Negative); Leukocyte Esterase,Urine Negative (Negative); Mucus,Urine Rare /hpf; Nitrite,Urine Negative (Negative); PH, Urine 5.5 (5.0-8.0); Protein,Urine Trace (Negative); RBC,Urine <1 /hpf (0-5); Specific Gravity,Urine 1.019 (1.001-1.035); Squamous Epithelial Cell,Urine <1 /hpf (0-4); Urobilinogen,Urine <2.0 mg/dL (<2.0)
[2018-11-12] MEDS: SODIUM CHLORIDE 0.9% 1,000 ML IV SCH (14:59)
[2018-11-12 15:21] VITALS: BMI 24.4
[2018-11-12] MEDS ORDERED: NICOTINE POLACRILEX 2 MG GUM BUCCAL PRN (16:00)
[2018-11-12] MEDS ORDERED: IBUPROFEN 400 MG TAB PO PRN (16:00)
--- NOTE | 2018-11-12 16:14 | XR ---
EXAMINATION TYPE: XR chest 1V DATE OF EXAM: 11/12/2018 COMPARISON: Today HISTORY: Possible pneumothorax TECHNIQUE: Single frontal view of the chest is obtained. FINDINGS: Heart and mediastinum are normal. Lungs are clear of consolidation. There is no evidence o f pneumothorax. There is clearing of the infiltrate and atelectasis at the superior left pulmonary hi lum compared to exam earlier today. IMPRESSION: No active cardiopulmonary disease. Normal heart. No pneumothorax.
--- NOTE | 2018-11-12 16:20 | P.HPIM ---
History of Present Illness H&P Date: 11/12/18 Chief Complaint: fever and cough Patient is a 63-year-old male with a past medical history of hypertension, dyslipidemia, prostate enlargement, and HIV with last HIV viral load undetectable, CD4 count 684 in August 2018 who presented to the emergency department with complaints of cough. In the ER he underwent an extensive evaluation. On arrival his temperature was 102.2 and he was tachycardic with heart rate of 109. Blood pressure was elevated at 170/93. Approximately 30 minutes after admission his fever spiked to 104.2. Initial laboratory analysis was essentially unremarkable. Urinalysis was negative. His chest x-ray showed a left perihilar pneumonia along with a pleural reflection along the right apex that may represent a 10-15% pneumothorax. In the ER he was given a dose of Zithromax, Rocephin, Solu-Medrol, and Bactrim. He was admitted for further workup of his pneumonia with sepsis. Patient seen and examined at bedside. He reports a nonproductive dry cough for the last 6 days. He reports excessive weakness and fatigue. For 2 days he was unable to get himself out of bed. He then proceeded to the ER here where he was diagnosed with viral syndrome and discharged home. He had also been seen at [facility] and was given Augmentin. He reports no improvement in his symptoms with this. He reports that at home he was having fevers chills and riders. His T- max at home with the 102. Is taking Tylenol but it did not seem to the brain his fever down. He denies any shortness of breath, chest pain. He does report some wheezing. Is also had intermittent diarrhea. Has had a decreased appetite. He denies any runny nose, sore throat, or postnasal drip. He reports that he recently traveled to [facility], [place], and [place]. He has had some intermittent diarrhea, no nasuea or vomiting. He noted a rash starting on his back and chest 3 days prior to admission it is not itchy or bothersome. He reports that he has been compliant with his HIV medication and has not missed any doses. He gets it mailed to his house. He reports that during his stress to the [facility] he did take a train trip. He developed acute otitis media affecting the right ear that moved the left. At that point in time he was prescribed an antibiotic and his symptoms resolved. He has not been on any antibiotics recently. He reports that his HIV medication was last changed approximately one year ago. Has not had any issues with this medication. Review of Systems Pertinent positives and negatives as discussed in HPI, a complete review of systems was performed and all other systems are negative. Past Medical History Past Medical History: Hyperlipidemia, Hypertension, Prostate Disorder Additional Past Medical History / Comment(s): HIV History of Any Multi-Drug Resistant Organisms: None Reported Past Surgical History: Prostate Surgery Additional Past Surgical History / Comment(s): hemorrhoidectomy Past Anesthesia/Blood Transfusion Reactions: Postoperative Nausea & Vomiting (PONV) Past Psychological History: No Psychological Hx Reported Smoking Status: Former smoker Past Alcohol Use History: Occasional Past Drug Use History: None Reported - Past Family History Mother Family Medical History: Cancer Additional Family Medical History / Comment(s): Throat cnacer grandmother Additional Family Medical History / Comment(s): CVA Grandfather Additional Family Medical History / Comment(s): Colon cancer Medications and Allergies Home Medications Medication Instructions Recorded Confirmed Type Fenofibrate [Tricor] 54 mg PO HS 12/03/14 11/12/18 History Pravastatin Sodium [Pravachol] 20 mg PO HS 12/03/14 11/12/18 History Ergocalciferol [Vitamin D2] 50,000 unit PO MO 08/09/16 11/12/18 History amLODIPine [Norvasc] 10 mg PO DAILY 04/12/18 11/12/18 History Escitalopram [Lexapro] 10 mg PO DAILY 11/12/18 11/12/18 History Allergies Allergy/AdvReac Type Severity Reaction Status Date / Time Anesthetics - Amide Type AdvReac Nausea & Verified 11/12/18 11:17 Vomiting Physical Exam Osteopathic Statement: *. No significant issues noted on an osteopathic structural exam other than those noted in the History and Physical/Consult. Vitals: Vital Signs Temp Pulse Pulse Resp BP BP Pulse Ox 11/12/18 15:00 98.5 F 72 16 118/74 96 11/12/18 14:37 98.8 F 73 16 104/64 94 L 11/12/18 14:31 98.8 F 73 16 104/64 94 L 11/12/18 12:53 102.1 F H 74 18 91/53 95 11/12/18 12:33 102.1 F H 11/12/18 10:12 22 11/12/18 10:11 104.2 F H 11/12/18 09:43 102.2 F H 109 H 18 170/93 96 Intake and Output 11/12/18 11/12/18 11/12/18 06:59 14:59 22:59 Other: # Voids 1 Weight 70.76 kg General: non toxic, no distress, appears at stated age, normal weight Derm: Maculopapular rash with coalescent over chest, back, and upper arms with sparing of lower extremities, no unusual ecchymoses, warm, dry Head: atraumatic, normocephalic, symmetric Eyes: EOMI, no lid lag, anicteric sclera, pupils equal round reactive to light ENT: Nose and ears atraumatic, no thrush, no pharyngeal erythema Neck: No thyromegaly, no cervical lymphadenopathy, trachea midline, supple Mouth: no lip lesion, mucus membranes dry Cardiovascular: S1S2 reg, no murmur, positive posterior tibial pulse bilateral, no edema, capillary refill less than 2 seconds Lungs: course breath sounds bilateral , no accessory muscle use Abdominal: soft, nontender to palpation, no guarding, no appreciable organomegaly, normal bowel sounds Ext: no gross muscle atrophy, muscle strength 5 out of 5 in all 4 extremities grossly, no contractures, Neuro: CN II-XI grossly intact, light touch intact all 4 extremities, finger to nose within normal limits, Psych: Alert, oriented, appropriate affect Results CBC & Chem 7: 11/12/18 11:02 11/12/18 11:02 Labs: Abnormal Lab Results - Last 24 Hours (Table) 11/12/18 11/12/18 11/12/18 Range/Units 11:02 11:02 12:30 Lymphocytes # 0.6 L (1.0-4.8) k/uL Chloride 108 H (98-107) mmol/L Glucose 108 H (74-99) mg/dL ALT 17 L (21-72) U/L Urine Protein Trace H (Negative) Urine Blood Small H (Negative) Urine Mucus Rare H (None) /hpf Chest x-ray: report reviewed, image reviewed Thrombosis Risk Factor Assmnt - DVT/VTE Prophylaxis DVT/VTE Prophylaxis: Pharmacologic Prophylaxis ordered - Choose All That Apply Any of the Below Risk Factors Present?: Yes Each Factor Represents 1 point: Age 41-60 years Thrombosis Risk Factor Assessment Total Risk Factor Score: 1 Thrombosis Risk Factor Assessment Level: Low Risk Assessment and Plan Assessment: Community-acquired pneumonia with sepsis in the setting of HIV -Continue his Zithromax and Rocephin -Concern for possible PCP or coccidia, -Consult Dr. Mathur, Last CD 08/14 normal with undetectable viral load -Lactic acid negative -Pulmonary hygiene -Follow chest x-ray Probable right sided pneumothorax -Supplemental O2 -Repeat chest x-ray Maculopapular rash -Concern for possible concomitant EBV infection as rash developed after exposure to amoxicillin, check EBV panel -Continue to follow -Patient status post IV steroids 1 Clinical dehydration -IV fluids Hypertension, accelerated on arrival -Resume Norvasc Dyslipidemia -Resume home Pravachol and TriCor Tobacco abuse - cessation - nicotine replacement The patient is admitted with an anticipated greater than 2 midnight stay for evaluation of pneumonia with sepsis Surrogate decision-maker: Significant other- Wayne Waterman CODE STATUS:Full DVT prophylaxis: Lovenox Discussed with: Patient, nursing, ED physician Anticipated discharge date: 3-[address]: home A total of 65 minutes was spent on the care of this complex patient more than 50% of the time was spent in counseling and care coordination.
[2018-11-12] MEDS: NICOTINE 14MG/24HR PATCH TRANSDERM SCH (17:14)
[2018-11-12] MEDS: PRAVASTATIN SODIUM 20 MG TAB PO SCH (21:55)
[2018-11-12] MEDS: FENOFIBRATE 54 MG TAB PO SCH (21:55)
[2018-11-12] MEDS: MELATONIN 3 MG TABLET PO PRN (22:00)
[2018-11-13] MEDS: amLODIPine 10 MG TAB PO SCH (08:37)
[2018-11-13] MEDS: BENZONATATE 100 MG CAP PO PRN (08:37)
[2018-11-13] MEDS: NICOTINE 14MG/24HR PATCH TRANSDERM SCH (08:38)
[2018-11-13] MEDS: ESCITALOPRAM 10 MG TAB PO SCH (08:38)
[2018-11-13] MEDS ORDERED: ERGOCALCIFEROL 50,000 UNIT CAP PO SCH (09:00)
[2018-11-13 09:25] LABS: Basophils % (A) 0 %; Eosinophils # (A) 0.1 k/uL (0-0.7); Eosinophils % (A) 1 %; HCT 41.1 % (39.0-53.0); HGB 13.7 gm/dL (13.0-17.5); Lymphocytes # (A) 0.7 k/uL (1.0-4.8); Lymphocytes % (A) 6 %; MCH 30.4 pg (25.0-35.0); MCHC 33.4 g/dL (31.0-37.0); MCV 90.8 fL (80.0-100.0); Mean Platelet Volume 9.3; Monocytes # (A) 0.3 k/uL (0-1.0); Monocytes % (A) 3 %; Neutrophils # (A) 9.4 k/uL (1.3-7.7); Neutrophils % (A) 89 %; Platelet Count 167 k/uL (150-450); RBC 4.53 m/uL (4.30-5.90); RDW 13.4 % (11.5-15.5); WBC 10.5 k/uL (3.8-10.6)
[2018-11-13 09:40] LABS: ALT 22 U/L (21-72); AST 47 U/L (17-59); African American GFR (CKD) >90 (>60 ml/min/1.73 sqM); Albumin 3.1 g/dL (3.5-5.0); Alkaline Phosphatase 48 U/L (38-126); Anion Gap 6 mmol/L; Blood Urea Nitrogen 18 mg/dL (9-20); Calcium 8.2 mg/dL (8.4-10.2); Carbon Dioxide 27 mmol/L (22-30); Chloride 108 mmol/L (98-107); Glucose 148 mg/dL (74-99); Magnesium 1.9 mg/dL (1.6-2.3); Phosphorus 3.3 mg/dL (2.5-4.5); Potassium 3.9 mmol/L (3.5-5.1); Sodium 141 mmol/L (137-145); Total Bilirubin 0.3 mg/dL (0.2-1.3); Total Protein 5.5 g/dL (6.3-8.2)
[2018-11-13] MEDS: ALBUTEROL NEBULIZED 2.5 MG/3 ML INHALATION PRN ×3 (09:56→20:22)
[2018-11-13] MEDS ORDERED: methylPREDNISolone SOD SUCCI 125 MG/2 ML VIAL IV STA (10:05)
[2018-11-13] MEDS ORDERED: guaiFENesin 600 MG TABLET.ER PO PRN (10:16)
[2018-11-13] MEDS: [UNRECOGNIZED DRUG - OTHER] PO SCH (10:34)
--- NOTE | 2018-11-13 10:37 | P.PN ---
Subjective Progress Note Date: 11/13/18 Principal diagnosis: fever and rash Patient is a 63-year-old male with a past medical history of hypertension, dyslipidemia, prostate enlargement, and HIV with last HIV viral load undetectable, CD4 count 684 in August 2018 who presented to the emergency department with complaints of cough. In the ER he underwent an extensive evaluation. On arrival his temperature was 102.2 and he was tachycardic with heart rate of 109. Blood pressure was elevated at 170/93. Approximately 30 minutes after admission his fever spiked to 104.2. Initial laboratory analysis was essentially unremarkable. Urinalysis was negative. His chest x-ray showed a left perihilar pneumonia along with a pleural reflection along the right apex that may represent a 10-15% pneumothorax. In the ER he was given a dose of Zithromax, Rocephin, Solu-Medrol, and Bactrim. He was admitted for further workup of his pneumonia with sepsis. He reports that in the last month he did take a train trip to the [facility]. He developed acute otitis media affecting the right ear that moved the left. At that point in time he was prescribed an antibiotic and his symptoms resolved. He reports that his HIV medication was last changed approximately one year ago. He reports being compliant with his medication. He Developed a dry cough 6 days prior to admission, was seen at [facility] and prescribed amoxicillin, he the developed a rash approximate 2 days later. He was continued on Zithromax and Rocephin after admission. Pulmonary and Dr. Mathur were consulted. Repeat CXR ruled out PTX. On the morning after admission his shortness of breath, wheezing and rash were worse. Patient seen and examined at beside. Breathing worse with more dyspnea and wheeze. Feeling tired. Breathing worse when laying flat. No chest pain. No nausea. Feeling very fatigued. Objective - Vital Signs Vital signs: Vital Signs Temp 98.0 F 11/13/18 07:07 Pulse 75 11/13/18 10:10 Resp 16 11/13/18 07:07 BP 106/67 11/13/18 07:07 Pulse Ox 96 11/13/18 09:59 Intake & Output 11/12/18 11/13/18 11/13/18 18:59 06:59 18:59 Intake Total 240 420 Balance 240 420 Weight 70.76 kg Intake: Oral 240 420 Other: Voiding Method Toilet # Voids 1 1 - Exam General: ill appearing, mild distress, no distress, appears at stated age Derm: warm, diaphoretic, Chest/back/arms with maculopapular rash with coalescence Head: atraumatic, normocephalic, symmetric Eyes: EOMI, no lid lag, anicteric sclera Mouth: no lip lesion, mucus membranes moist Cardiovascular: S1S2 reg, no murmur, positive posterior tibial pulse bilateral, Lungs: Course breath sounds , No accessory muscle use Abdominal: soft, nontender to palpation, no guarding, no appreciable organomegaly Ext: no gross muscle atrophy, no edema, no contractures Neuro: CN II-XI grossly intact, no focal neuro deficits Psych: Alert, oriented, appropriate affect - Labs CBC & Chem 7: 11/13/18 08:26 11/13/18 08:26 Labs: Abnormal Lab Results - Last 24 Hours (Table) 11/12/18 11/12/18 11/12/18 Range/Units 11:02 11:02 12:30 Neutrophils # (1.3-7.7) k/uL Lymphocytes # 0.6 L (1.0-4.8) k/uL Chloride 108 H (98-107) mmol/L Glucose 108 H (74-99) mg/dL Calcium (8.4-10.2) mg/dL ALT 17 L (21-72) U/L Total Protein (6.3-8.2) g/dL Albumin (3.5-5.0) g/dL Urine Protein Trace H (Negative) Urine Blood Small H (Negative) Urine Mucus Rare H (None) /hpf 11/13/18 11/13/18 Range/Units 08:26 08:26 Neutrophils # 9.4 H (1.3-7.7) k/uL Lymphocytes # 0.7 L (1.0-4.8) k/uL Chloride 108 H (98-107) mmol/L Glucose 148 H (74-99) mg/dL Calcium 8.2 L (8.4-10.2) mg/dL ALT (21-72) U/L Total Protein 5.5 L (6.3-8.2) g/dL Albumin 3.1 L (3.5-5.0) g/dL Urine Protein (Negative) Urine Blood (Negative) Urine Mucus (None) /hpf Assessment and Plan Assessment: Community-acquired pneumonia with sepsis in the setting of HIV -Continue his Zithromax and Rocephin -Concern for possible PCP or coccidia, testing pending - EBV and CMV testing pending -Await ID recs: Last CD 08/14 normal with undetectable viral load -Lactic acid negative -Pulmonary hygiene -Follow chest x-ray - Await Pulm recs - add steroids and prn bronchodilators - check HRCT chest - Biktarvy Maculopapular rash -Concern for possible concomitant EBV infection as rash developed after exposure to amoxicillin, check EBV panel -Continue to follow -Steroids - Await ID evaluation Clinical dehydration -decrease IVF Hypertension, accelerated on arrival -Norvasc Dyslipidemia -Pravachol and TriCor Tobacco abuse - cessation - nicotine replacement Right sided PTX ruled out on repeat CXR DVT prophylaxis: Lovenox 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
--- NOTE | 2018-11-13 11:03 | P.CONS ---
History of Present Illness - Reason for Consult Consult date: 11/13/18 Pneumonia, HIV - Chief Complaint Cough, shortness of breath, fever - History of Present Illness This is a 63-year-old male well nontidal D service due to underlying history of HIV last seen in the office in August of this year and managed with Biktarvy 50-200-25 mg daily. Patient gives history of traveling by train from [place] to [facility], [facility], [place] and then return home 3 weeks ago. Patient did sightseeing and hiking at the various stops. While he was in [place] he developed a severe right sided ear infection was unable to eat or drink for 3 days. When he arrived in [place] he went to the clinic and was provided an antibiotic for a 10 day course which she completed once he received reached home. He states the infection traveled to his left ear and then finally healed. Shortly after that he developed cough that is nonproductive but constant, shortness of breath, fevers. He initially went to [facility] on November 09 and was sent home without treatment and no new medications. He states he then spent 2 days and bad as he had high fevers and was extremely weak. He then came into [facility] emergency center on November 10. Chest x-ray, Influenza A and B and WBC were normal and patient received steroids and Benadryl, diagnosed with viral syndrome, viral exanthem and was discharged home. By that time, patient had developed a rash that started on his back and chest and then spread to his arms and is now spreading to his thighs. He denies any itchiness. He has also had sun exposure on the weekend causing redness to his face. Unfortunately, patient continued to have fever or cough, shortness of breath with generalized weakness and malaise, rash and came back into [facility] emergency center for eval uation on November 12. Temperature at that time was 104.2, he was tachycardic, blood pressure was on the low side at 91/53. White count was again normal, lactic acid 1.8. Urinalysis showed a small amount of blood. Initial chest x-ray revealed suspected left perihilar mass or pneumonia. Pleural reflection along the right apex. Although this may represent a small pneumothorax. Recommend a repeat frontal view and removal of any superficial dressing. Correlate for right-sided chest pain. Repeat chest x-ray this morning reveals no active cardiopulmonary disease. Normal heart. No pneumothorax. Patient is scheduled for CAT scan of the chest today and consult with Dr. Rey. Patient is curr ently on azithromycin and ceftriaxone. Blood cultures status received. Cytomegalovirus, EBV and Legionella pending. 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 There is a cat and a dog in the house. He denies any animal exposures during his recent travels. Patient previously worked at [facility] and denies any employment with exposure to toxic agents. He denies any unusual hobbies. Review of Systems Constitutional: Reports chills, Reports fatigue, Reports fever, Reports le thargy, Reports malaise, Reports poor appetite, Reports weakness Ears: deny: earache Ears, nose, mouth and throat: Reports vertigo, Denies dental pain, Denies dysphagia, Denies mouth pain, Denies nasal congestion, Denies nasal discharge, Denies sore throat Cardiovascular: Reports lightheadedness, Reports shortness of breath, Denies chest pain, Denies edema, Denies leg edema, Denies syncope Respiratory: Reports cough, Reports dyspnea, Denies cough with sputum, Denies excessive sputum, Denies hemoptysis, Denies home oxygen, Denies wheezing Gastrointestinal: Reports loss of appetite, Denies abdominal pain, Denies constipation, Denies diarrhea, Denies melena, Denies nausea, Denies vomiting Genitourinary: Denies dysuria, Denies urinary frequency, Denies urinary retention Musculoskeletal: Denies frequent falls, Denies gait dysfunction, Denies muscle weakness, Denies myalgias Integumentary: Reports rash, Denies pruritus, Denies wounds Neurological: Denies aphasia, Denies change in mentation, Denies change in speech, Denies seizures, Denies syncope Psychiatric: Denies anxiety, Denies depression Endocrine: Denies fatigue, Denies weight change Past Medical History Past Medical History: Hyperlipidemia, Hypertension, Prostate Disorder Additional Past Medical History / Comment(s): HIV History of Any Multi-Drug Resistant Organisms: None Reported Past Surgical History: Prostate Surgery Additional Past Surgical History / Comment(s): hemorrhoidectomy Past Anesthesia/Blood Transfusion Reactions: Postoperative Nausea & Vomiting (PONV) Past Psychological History: No Psychological Hx Reported Smoking Status: Former smoker Past Alcohol Use History: Occasional Additional Past Alcohol Use History / Comment(s): Patient was a smoker of 10 cigarettes per day for 35 years ago quit 1 year ago. He denies any marijuana or street drug use. He drinks alcohol socially. 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 There is a cat and a dog in the house. He denies any animal exposures during his rec ent travels. Patient previously worked at [facility] and denies any employment with exposure to toxic agents. He denies any unusual hobbies. Past Drug Use History: None Reported - Past Family History Mother Family Medical History: Cancer Additional Family Medical History / Comment(s): Throat cnacer grandmother Additional Family Medical History / Comment(s): CVA Grandfather Additional Family Medical History / Comment(s): Colon cancer Medications and Allergies Home Medications Medication Instructions Recorded Confirmed Type Fenofibrate [Tricor] 54 mg PO HS 12/03/14 11/12/18 History Pravastatin Sodium [Pravachol] 20 mg PO HS 12/03/14 11/12/18 History Ergocalciferol [Vitamin D2] 50,000 unit PO MO 08/09/16 11/12/18 History amLODIPine [Norvasc] 10 mg PO DAILY 04/12/18 11/12/18 History Escitalopram [Lexapro] 10 mg PO DAILY 11/12/18 11/12/18 History Bictegrav/Emtricit/Tenofov Ala 1 each PO DAILY 11/13/18 11/13/18 History [Biktarvy 50-200-25 mg Tablet] Allergies Allergy/AdvReac Type Severity Reaction Status Date / Time Anesthetics - Amide Type AdvReac Nausea & Verified 11/12/18 11:17 Vomiting Physical Exam Vitals: Vital Signs Temp Pulse Pulse Pulse Resp BP BP 11/13/18 10:10 75 11/13/18 09:59 75 11/13/18 07:07 98.0 F 67 16 106/67 11/13/18 06:17 72 123/75 11/13/18 02:08 97.4 F L 58 L 17 115/68 11/12/18 20:54 97.7 F 67 18 103/64 11/12/18 15:53 16 11/12/18 15:00 98.5 F 72 16 118/74 11/12/18 14:37 98.8 F 73 16 104/64 11/12/18 14:31 98.8 F 73 16 104/64 11/12/18 12:53 102.1 F H 74 18 91/53 11/12/18 12:33 102.1 F H Pulse Ox 11/13/18 10:10 11/13/18 09:59 96 11/13/18 07:07 99 11/13/18 06:17 98 11/13/18 02:08 99 11/12/18 20:54 96 11/12/18 15:53 11/12/18 15:00 96 11/12/18 14:37 94 L 11/12/18 14:31 94 L 11/12/18 12:53 95 11/12/18 12:33 Intake and Output 11/12/18 11/13/18 11/13/18 22:59 06:59 14:59 Intake Total 240 420 Balance 240 420 Intake: Oral 240 420 Other: Voiding Method Toilet # Voids 1 1 Gen: This is a 63-year-old male. He is sitting in a recliner and appears to be in mild distress. Frequent coughing and shortness of breath noted. HEENT: Head is atraumatic, normocephalic. Pupils equal, round. Sclerae is anicteric. Conjunctiva pink. Mucous members of the mouth are moist. Froylan pharynx without erythema or edema. NECK: Supple. No JVD. No lymphadenopathy. No thyromegaly. LUNGS: Coarse breath sounds with end expiratory wheeze on the right side. No intercostal retractions. HEART: Regular rate and rhythm. No murmur. ABDOMEN: Soft. Bowel sounds are present. No masses. No tenderness. EXTREMITIES: No pedal edema bilaterally. No calf tenderness. Dorsalis pedis +1 bilaterally. SKIN: Maculopapular rash with coalescence mostly to the, upper chest. Mild involvement of bilateral arms and slight involvement of the upper thighs NEUROLOGICAL: Patient is awake, alert and oriented x3. Cranial nerves 2 through 12 are grossly intact. Results Results: Laboratory Results WBC 10.5 k/uL (3.8-10.6) 11/13/18 08:26 RBC 4.53 m/uL (4.30-5.90) 11/13/18 08:26 Hgb 13.7 gm/dL (13.0-17.5) 11/13/18 08:26 Hct 41.1 % (39.0-53.0) 11/13/18 08:26 MCV 90.8 fL (80.0-100.0) 11/13/18 08:26 MCH 30.4 pg (25.0-35.0) 11/13/18 08:26 MCHC 33.4 g/dL (31.0-37.0) 11/13/18 08:26 RDW 13.4 % (11.5-15.5) 11/13/18 08:26 Plt Count 167 k/uL (150-450) 11/13/18 08:26 Neutrophils % 89 % 11/13/18 08:26 Lymphocytes % 6 % 11/13/18 08:26 Monocytes % 3 % 11/13/18 08:26 Eosinophils % 1 % 11/13/18 08:26 Basophils % 0 % 11/13/18 08:26 Neutrophils # 9.4 k/uL (1.3-7.7) H 11/13/18 08:26 Lymphocytes # 0.7 k/uL (1.0-4.8) L 11/13/18 08:26 Monocytes # 0.3 k/uL (0-1.0) 11/13/18 08:26 Eosinophils # 0.1 k/uL (0-0.7) 11/13/18 08:26 Basophils # 0.0 k/uL (0-0.2) 11/13/18 08:26 Sodium 141 mmol/L (137-145) 11/13/18 08:26 Potassium 3.9 mmol/L (3.5-5.1) 11/13/18 08:26 Chloride 108 mmol/L (98-107) H 11/13/18 08:26 Carbon Dioxide 27 mmol/L (22-30) 11/13/18 08:26 Anion Gap 6 mmol/L 11/13/18 08:26 BUN 18 mg/dL (9-20) 11/13/18 08:26 Creatinine 0.90 mg/dL (0.66-1.25) 11/13/18 08:26 Est GFR (CKD-EPI)AfAm >90 (>60 ml/min/1.73 sqM) 11/13/18 08:26 Est GFR (CKD-EPI)NonAf >90 (>60 ml/min/1.73 sqM) 11/13/18 08:26 Glucose 148 mg/dL (74-99) H 11/13/18 08:26 Plasma Lactic Acid Jero 1.8 mmol/L (0.7-2.0) 11/12/18 11:02 Calcium 8.2 mg/dL (8.4-10.2) L 11/13/18 08:26 Phosphorus 3.3 mg/dL (2.5-4.5) 11/13/18 08:26 Magnesium 1.9 mg/dL (1.6-2.3) 11/13/18 08:26 Total Bilirubin 0.3 mg/dL (0.2-1.3) 11/13/18 08:26 AST 47 U/L (17-59) 11/13/18 08:26 ALT 22 U/L (21-72) 11/13/18 08:26 Alkaline Phosphatase 48 U/L (38-126) 11/13/18 08:26 Total Protein 5.5 g/dL (6.3-8.2) L 11/13/18 08:26 Albumin 3.1 g/dL (3.5-5.0) L 11/13/18 08:26 Urine Color Yellow 11/12/18 12:30 Urine Appearance Clear (Clear) 11/12/18 12:30 Urine pH 5.5 (5.0-8.0) 11/12/18 12:30 Ur Specific Wall 1.019 (1.001-1.035) 11/12/18 12:30 Urine Protein Trace (Negative) H 11/12/18 12:30 Urine Glucose (UA) Negative (Negative) 11/12/18 12:30 Urine Ketones Negative (Negative) 11/12/18 12:30 Urine Blood Small (Negative) H 11/12/18 12:30 Urine Nitrite Negative (Negative) 11/12/18 12:30 Urine Bilirubin Negative (Negative) 11/12/18 12:30 Urine Urobilinogen <2.0 mg/dL (<2.0) 11/12/18 12:30 Ur Leukocyte Esterase Negative (Negative) 11/12/18 12:30 Urine RBC <1 /hpf (0-5) 11/12/18 12:30 Urine WBC <1 /hpf (0-5) 11/12/18 12:30 Ur Squamous Epith Cells <1 /hpf (0-4) 11/12/18 12:30 Urine Mucus Rare /hpf (None) H 11/12/18 12:30 CBC & Chem 7: 11/13/18 08:26 11/13/18 08:26 Labs: Abnormal Lab Results - Last 24 Hours (Table) 11/12/18 11/12/18 11/12/18 Range/Units 11:02 11:02 12:30 Neutrophils # (1.3-7.7) k/uL Lymphocytes # 0.6 L (1.0-4.8) k/uL Chloride 108 H (98-107) mmol/L Glucose 108 H (74-99) mg/dL Calcium (8.4-10.2) mg/dL ALT 17 L (21-72) U/L Total Protein (6.3-8.2) g/dL Albumin (3.5-5.0) g/dL Urine Protein Trace H (Negative) Urine Blood Small H (Negative) Urine Mucus Rare H (None) /hpf 11/13/18 11/13/18 Range/Units 08:26 08:26 Neutrophils # 9.4 H (1.3-7.7) k/uL Lymphocytes # 0.7 L (1.0-4.8) k/uL Chloride 108 H (98-107) mmol/L Glucose 148 H (74-99) mg/dL Calcium 8.2 L (8.4-10.2) mg/dL ALT (21-72) U/L Total Protein 5.5 L (6.3-8.2) g/dL Albumin 3.1 L (3.5-5.0) g/dL Urine Protein (Negative) Urine Blood (Negative) Urine Mucus (None) /hpf Assessment and Plan Plan: This is a 63-year-old male patient presented to Hospital with signs of sepsis, pneumonia and possilbe viral exanthem in a patient with underlying history of HIV. Patient is currently on azithromycin and Rocephin IV. CAT scan of the chest ordered for today. Cytomegaly virus, EBV Legionella testing is pending. Pulmonary medicine is also on consult. Continue supportive care. Further recommendations as patient presses. The above dictated assessment and findings were discussed with Dr. Mathur. The impression and plan of care have been directed as dictated. Irma Lucia nurse practitioner acting as scribe for Dr. Mathur.
[2018-11-13] MEDS: AZITHROMYCIN 500 MG TAB PO SCH (12:27)
[2018-11-13] MEDS: methylPREDNISolone SOD SUCCI 125 MG/2 ML VIAL IV SCH ×3 (12:27→23:31)
[2018-11-13] MEDS: SODIUM CHLORIDE 0.45% 1,000 ML IV SCH ×2 (12:27→21:59)
--- NOTE | 2018-11-13 13:34 | CT ---
EXAMINATION TYPE: CT chest wo con DATE OF EXAM: 11/13/2018 COMPARISON: 10/07/2017 HISTORY: Cough for [address] DLP: 599.4 mGycm, Automated exposure control for dose reduction was used. CONTRAST: None TECHNIQUE: Axial images were obtained at 1 mm thick sections at 10 mm intervals. This will limit po rtions of the examination which may not be visualized within the [id number]. Images were obtained in the prone and supine views. FINDINGS: Portion of the thyroid visualized is normal. There is a punctate calcification in the superior medial right upper lobe likely is a calcified granu mirela. There are several calcified lymph nodes in the pretracheal and right hilar region. There are irregular densities within the lung salas. The larger in the lingular region measures 2.2 x 4.7 cm. Series 203 image 25. There is a small irregular density in the right midlung 0.9 cm. Series 203 image 26. Additional areas of pneumonitis are within the cardiomediastinal lingula. Calcified gr anulomas in the right middle lobe. Image 41 more subtle areas of pneumonitis within the right middle lobe better visualized on lung windows. Infectious etiology should be considered. This was not presen t 10/07/2017. Neoplasm is considered less likely but is not excluded. This should be followed to cleari ng. No enlarged mediastinal or hilar adenopathy is evident. The ascending aorta diameter at the level o f the main pulmonary artery is 3.4 cm. The main pulmonary artery diameter at the bifurcation is 2.[address] sections are obtained through the upper abdomen. Abdomen is essentially unremarkable. IMPRESSIONS: 1. Large lingular consolidation with additional areas of pneumonitis within the right middle lobe and within the lingula. Infectious etiology should be suspected. Follow-up to clearing is recommended. U nderlying neoplasm is considered less likely but not excluded at this time.
[2018-11-13 16:05] LABS: EBV-EA (IgG) 4.8 AI; EBV-EBNA(IgG) >8.0 AI; EBV-VCA (IgG) >8.0 AI
--- NOTE | 2018-11-13 16:24 | P.CNPUL ---
History of Present Illness Consult date: 11/13/18 Requesting physician: Eleanor Aquino Reason for consult: dyspnea, cough Chief complaint: Fever, rash, coughing History of present illness: This is 63-year-old white male patient with past medical history of hypertension, hyperlipidemia, benign prostatic hypertrophy, former smoker, history of HIV, patient follows with Dr. Mathur, who came into the hospital on 11/12/2018 for evaluation of a fever and rash for 4 days. Patient was having severe coughing spells, nonproductive cough. Patient recently returned home from a trip from [place]. Patient was traveling by train from [place] to [place], to [place], and then [address] [place] [address] and returned home 3 weeks ago. Patient was site seeing and hiking at the various stops. He did seek medical care for right ear infection while in [place] was treated with Augmentin, completed the course and his symptoms of right earache and fullness was improving. He returned home, and a few days after he developed a dry cough, did have a fever spike of 101F. He went to the [facility], and apparently no treatment was ordered other than supportive treatment, he has right ear infection was improving. Patient was feeling worse, he was weak, could not get out of bed, developed a maculopapular rash all over his chest, abdomen, upper arms and back he was sent in the ER on November 11, was told that he was dehydrated, was given IV fluids, and Benadryl for his rash. Over the weekend his symptoms progressed, his rash seems to have spread to his lower torso, and upper parts of his legs, he states it feels hot but is not itchy. His temp was 10 4F, still has dry nonproductive cough, chest tightness. X-ray was taken revealing a left perihilar mass or pneumonia with a pleural reflection along the right apex, with the possibility of small pneumothorax. However on the subsequent chest x-ray there was no pneumothorax, and there is clearing of the infiltrate and atelectasis at the superior left pulmonary hilum, as read by the radiologist. CT chest was then obtained today showing a large lingular consolidation with additional areas of pneumonitis within the right middle lobe and within the lingula, with the possibility of infectious etiology. Right now patient is on a combination of Zithromax and Rocephin, ID service consult pending. Room air pulse ox is 95%, hemodynamically stable, afebrile since admission, culture so far showed no growth. Labs on admission showed a white blood cell count of 7.8, hemoglobin of 13.5, sodium of 141, potassium is 3.7, chloride is 108, CO2 24, BUN is 16, creatinine is 1.10. Has normal lactic acid was 1.8, urinalysis showed trace protein, small amount of blood, negative for lupus, less than 1 WBC , less than 1 RBC, cytomegalovirus, EBV, and Legionella pending. Review of Systems All systems: negative Constitutional: Denies chills, Denies fever Eyes: denies blurred vision, denies pain Ears, nose, mouth and throat: Denies headache, Denies sore throat Cardiovascular: Reports decreased exercise tolerance, Denies chest pain, Denies shortness of breath Respiratory: Reports as per HPI, Reports dyspnea, Denies cough Gastrointestinal: Denies abdominal pain, Denies diarrhea, Denies nausea, Denies vomiting Musculoskeletal: Denies myalgias Integumentary: Reports rash, Denies pruritus Neurological: Denies numbness, Denies weakness Psychiatric: Denies anxiety, Denies depression Endocrine: Denies fatigue, Denies weight change Past Medical History Past Medical History: Hyperlipidemia, Hypertension, Prostate Disorder Additional Past Medical History / Comment(s): HIV History of Any Multi-Drug Resistant Organisms: None Reported Past Surgical History: Prostate Surgery Additional Past Surgical History / Comment(s): hemorrhoidectomy Past Anesthesia/Blood Transfusion Reactions: Postoperative Nausea & Vomiting (PONV) Past Psychological History: No Psychological Hx Reported Smoking Status: Former smoker Past Alcohol Use History: Occasional Additional Past Alcohol Use History / Comment(s): Patient was a smoker of 10 cigarettes per day for 35 years ago quit 1 year ago. He denies any marijuana or street drug use. He drinks alcohol socially. 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 There is a cat and a dog in the house. He denies any animal exposures during his recent travels. Patient previously worked at [employer] and denies any employment with exposure to toxic agents. He denies any unusual hobbies. Past Drug Use History: None Reported - Past Family History Mother Family Medical History: Cancer Additional Family Medical History / Comment(s): Throat cnacer grandmother Additional Family Medical History / Comment(s): CVA Grandfather Additional Family Medical History / Comment(s): Colon cancer Medications and Allergies Home Medications Medication Instructions Recorded Confirmed Type Fenofibrate [Tricor] 54 mg PO HS 12/03/14 11/12/18 History Pravastatin Sodium [Pravachol] 20 mg PO HS 12/03/14 11/12/18 History Ergocalciferol [Vitamin D2] 50,000 unit PO MO 08/09/16 11/12/18 History amLODIPine [Norvasc] 10 mg PO DAILY 04/12/18 11/12/18 History Escitalopram [Lexapro] 10 mg PO DAILY 11/12/18 11/12/18 History Bictegrav/Emtricit/Tenofov Ala 1 each PO DAILY 11/13/18 11/13/18 History [Biktarvy 50-200-25 mg Tablet] Allergies Allergy/AdvReac Type Severity Reaction Status Date / Time Anesthetics - Amide Type AdvReac Nausea & Verified 11/12/18 11:17 Vomiting Physical Exam Vitals: Vital Signs Temp Pulse Pulse Pulse Resp BP Pulse Ox 11/13/18 14:34 98.8 F 81 15 112/64 95 11/13/18 10:10 75 11/13/18 09:59 75 96 11/13/18 08:10 67 16 11/13/18 07:07 98.0 F 67 16 106/67 99 11/13/18 06:17 72 123/75 98 11/13/18 02:08 97.4 F L 58 L 17 115/68 99 11/12/18 20:54 97.7 F 67 18 103/64 96 Intake and Output 11/13/18 11/13/18 11/13/18 06:59 14:59 22:59 Intake Total 2360 Balance 2360 Intake: Intake, IV Titration 1040 Amount Sodium Chloride 0.45% 1, 150 000 ml @ 75 mls/hr IV . [id number] [facility] Rx#:[id number] Sodium Chloride 0.9% 1, 840 000 ml @ 120 mls/hr IV . [id number] [facility] Rx#:[id number] cefTRIAXone 1 gm In 50 Sodium Chloride 0.9% 50 ml @ 100 mls/hr IVPB Q24HR [facility] Rx#:[id number] Oral 1320 Other: Voiding Method Toilet # Voids 1 3 GENERAL EXAM: Alert, pleasant, 63-year-old white male, resting in bed, he looks flushed in his face, he states he feels chilled, and requesting blankets. HEAD: Normocephalic/atraumatic. EYES: Normal reaction of pupils, equal size. Conjunctiva pink, sclera white. NOSE: Clear with pink turbinates. THROAT: No erythema or exudates. NECK: No masses, no JVD, no thyroid enlargement, no adenopathy. CHEST: No chest wall deformity. Symmetrical expansion. LUNGS: Equal air entry with diffuse wheezing CVS: Regular rate and rhythm, normal S1 and S2, no gallops, no murmurs, no rubs ABDOMEN: Soft, nontender. No hepatosplenomegaly, normal bowel sounds, no guarding or rigidity. EXTREMITIES: No clubbing, no edema, no cyanosis, 2+ pulses and upper and lower extremities. MUSCULOSKELETAL: Muscle strength and tone normal. SPINE: No scoliosis or deformity SKIN: Diffuse maculopapular rash with coalescence on patient's chest, abdomen, upper arms, upper thighs, and back and some limited rash on patient's neck CENTRAL NERVOUS SYSTEM: Alert and oriented -3. No focal deficits, tone is normal in all 4 extremities. PSYCHIATRIC: Alert and oriented -3. Appropriate affect. Intact judgment and insight. Results - Laboratory Findings CBC and BMP: 11/13/18 08:26 11/13/18 08:26 Abnormal lab findings: Abnormal Labs 11/12/18 11/12/18 11/12/18 11:02 11:02 12:30 Neutrophils # Lymphocytes # 0.6 L Chloride 108 H Glucose 108 H Calcium ALT 17 L Total Protein Albumin Urine Protein Trace H Urine Blood Small H Urine Mucus Rare H 11/13/18 11/13/18 08:26 08:26 Neutrophils # 9.4 H Lymphocytes # 0.7 L Chloride 108 H Glucose 148 H Calcium 8.2 L ALT Total Protein 5.5 L Albumin 3.1 L Urine Protein Urine Blood Urine Mucus - Diagnostic Findings Chest x-ray: report reviewed, image reviewed CT scan - chest: report reviewed, image reviewed Assessment and Plan Plan: Assessment: #1. Acute dyspnea related to a large lingular consolidation with additional areas of pneumonitis in the right middle lobe and the lingula likely related to infectious etiology, possibly streptococcal infection, in the patient with known history of HIV #2. History of recent travel to [place], additional testing is in progress to rule out possibility of cocciodiosis #3. Maculopapular rash #4. History of immunodeficiency virus with his last HIV viral load undetectable, CD4 count of 684 in August 2018 #5. Hypertension #6. Hyperlipidemia #7. Former smoker #8. Suspect COPD Plan: We'll continue current antibiotics, ID service has been consulted, will await their recommendations. Continue with IV steroids, breathing treatments. CT chest and chest x-ray have been reviewed by Dr. Lou, and there is dense lingular consolidation with additional areas of pneumonitis in the right middle lobe. Will continue with medical treatment for now, cytomegalovirus, EBV, Legionella, Chlamydia serology, coccidiomycosis testing is in progress. We will continue to follow I performed a history & physical examination of the patient and discussed their management with my nurse practitioner, Radha Landry. I reviewed the nurse practitioner's note and agree with the documented findings and plan of care. Lung sounds are positive for diffuse wheezes throughout the lung salas. The findings and the impression was discussed with the patient. I attest to the documentation by the nurse practitioner. Time with Patient: Greater than 30
[2018-11-13 18:21] LABS: Glucose,Whole Blood 240 mg/dL (75-99)
[2018-11-13] MEDS: INSULIN ASPART (NovoLOG) 100 UNIT/ML VIAL SQ SCH ×2 (18:30→21:59)
[2018-11-13] MEDS: SODIUM CHLORIDE 0.9% 1,000 ML IV SCH (20:11)
[2018-11-13 20:25] LABS: Glucose,Whole Blood 230 mg/dL (75-99)
[2018-11-13 21:54] LABS: Glucose,Whole Blood 242 mg/dL (75-99)
[2018-11-13] MEDS: PRAVASTATIN SODIUM 20 MG TAB PO SCH (21:58)
[2018-11-13] MEDS: MELATONIN 3 MG TABLET PO PRN (21:59)
[2018-11-13] MEDS: FENOFIBRATE 54 MG TAB PO SCH (21:59)
[2018-11-14] MEDS ORDERED: diphenhydrAMINE 50 MG CAP PO PRN (00:08)
--- NOTE | 2018-11-14 00:13 | P.CON ---
Consult Note - . Consult date: 11/13/18 Assessment/Plan:: This is a 63-year-old male well nontidal D service due to underlying history of HIV last seen in the office in August of this year and managed with Biktarvy 50-200-25 mg daily. Patient gives history of traveling by train from [place] to [facility], [facility], [place] and then return home 3 weeks ago. Patient did sightseeing and hiking at the various stops. While he was in [place] he developed a severe right sided ear infection was unable to eat or drink for 3 days. When he arrived in [place] he went to the clinic and was provided an antibiotic for a 10 day course which she completed once he received reached home. He states the infection traveled to his left ear and then finally healed. Shortly after that he developed cough that is nonproductive but constant, shortness of breath, fevers. He initially went to [facility] on November 09 and was sent home without treatment and no new medications. He states he then spent 2 days and bad as he had high fevers and was extremely weak. He then came into [facility] emergency center on November 10. Chest x-ray, Influenza A and B and WBC were normal and patient received steroids and Benadryl, diagnosed with viral syndrome, viral exanthem and was discharged home. By that time, patient had developed a rash that started on his back and chest and then spread to his arms and is now spreading to his thighs. He denies any itchiness. He has also had sun exposure on the weekend causing redness to his face. Unfortunately, patient continued to have fever or cough, shortness of breath with generalized weakness and malaise, rash and came back into [facility] emergency center for evaluation on November 12. Temperature at that time was 104.2, he was tachycardic, blood pressure was on the low side at 91/53. White count was again normal, lactic acid 1.8. Urinalysis showed a small amount of blood. Initial chest x- ray revealed suspected left perihilar mass or pneumonia. Pleural reflection along the right apex. Although this may represent a small pneumothorax. Recommend a repeat frontal view and removal of any superficial dressing. Correlate for right-sided chest pain. Repeat chest x-ray this morning reveals no active cardiopulmonary disease. Normal heart. No pneumothorax. Patient is scheduled for CAT scan of the chest today and consult with Dr. Rey. Patient is currently on azithromycin and ceftriaxone. Blood cultures status received. Cytomegalovirus, EBV and Legionella pending. 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 There is a cat and a dog in the house. He denies any animal exposures during his recent travels. Patient previously worked at [facility] and denies any employment with exposure to toxic agents. He denies any unusual hobbies.Please to the counselors dictated by nurse practitioner Mrs. Irma Lucia. As noted the patient was feeling well until his train trip to [place], [place] and then [place] before his return through [place] to [place]. The patient was exposed to many children several who appeared to be ill. His friends that he stayed with at the locations were not acutely ill. He did hike outside in [place] in the [place]. He did spend time outside in both [place] as well as [place]. He did have a acute ear infection was treated with a course of azithromycin. He now is evidence by computed tomography scan of the distinct pneumonia. Antibiotic therapy with Rocephin and azithromycin is being utilized. There are the birds that they raise at the home and constantly the possibility of psittacosis is considered an serology is requested. The azithromycin is partly adequate for treatment. Legionella urinary antigens and also requested given the significant pneumonia in the rash that he developed it seems to be improving. Lastly serology for coccidiomycosis is requested and fluconazole intravenous will be added for now pending further results and his response to treatment. I agree with the evaluation, assessment and plan as dictated by nurse practitioner Mrs. Irma Lucia.
[2018-11-14] MEDS: FLUCONAZOLE IN NACL,ISO-OSM 400 MG in SALINE 1 200ML.BAG IVPB SCH ×2 (01:09→22:06)
[2018-11-14] MEDS: BENZONATATE 100 MG CAP PO PRN ×2 (05:32→22:06)
[2018-11-14] MEDS: methylPREDNISolone SOD SUCCI 125 MG/2 ML VIAL IV SCH ×3 (05:32→17:29)
[2018-11-14 07:12] LABS: Glucose,Whole Blood 197 mg/dL (75-99)
[2018-11-14] MEDS: [UNRECOGNIZED DRUG - OTHER] PO SCH (08:03)
[2018-11-14] MEDS: amLODIPine 10 MG TAB PO SCH (08:03)
[2018-11-14] MEDS: ESCITALOPRAM 10 MG TAB PO SCH (08:03)
[2018-11-14] MEDS: INSULIN ASPART (NovoLOG) 100 UNIT/ML VIAL SQ SCH ×4 (08:03→21:26)
[2018-11-14] MEDS: ALBUTEROL NEBULIZED 2.5 MG/3 ML INHALATION PRN ×3 (08:37→22:55)
[2018-11-14 09:00] LABS: HCT 37.1 % (39.0-53.0); HGB 12.3 gm/dL (13.0-17.5); MCH 29.8 pg (25.0-35.0); MCHC 33.3 g/dL (31.0-37.0); MCV 89.6 fL (80.0-100.0); Mean Platelet Volume 9.5; Platelet Count 165 k/uL (150-450); RBC 4.14 m/uL (4.30-5.90); RDW 13.4 % (11.5-15.5); WBC 10.3 k/uL (3.8-10.6)
[2018-11-14 09:14] LABS: African American GFR (CKD) >90 (>60 ml/min/1.73 sqM); Anion Gap 10 mmol/L; Blood Urea Nitrogen 13 mg/dL (9-20); Calcium 8.2 mg/dL (8.4-10.2); Carbon Dioxide 24 mmol/L (22-30); Chloride 104 mmol/L (98-107); Glucose 188 mg/dL (74-99); Potassium 3.8 mmol/L (3.5-5.1); Sodium 138 mmol/L (137-145)
--- NOTE | 2018-11-14 10:27 | P.PN ---
Subjective Progress Note Date: 11/14/18 Principal diagnosis: fever and rash Patient is a 63-year-old male with a past medical history of hypertension, dyslipidemia, prostate enlargement, and HIV with last HIV viral load undetectable, CD4 count 684 in August 2018 who presented to the emergency department with complaints of cough. In the ER he underwent an extensive evaluation. On arrival his temperature was 102.2 and he was tachycardic with heart rate of 109. Blood pressure was elevated at 170/93. Approximately 30 minutes after admission his fever spiked to 104.2. Initial laboratory analysis was essentially unremarkable. Urinalysis was negative. His chest x-ray showed a left perihilar pneumonia along with a pleural reflection along the right apex that may represent a 10-15% pneumothorax. In the ER he was given a dose of Zithromax, Rocephin, Solu-Medrol, and Bactrim. He was admitted for further workup of his pneumonia with sepsis. He reports that in the last month he did take a train trip to the [facility]. He developed acute otitis media affecting the right ear that moved the left. At that point in time he was prescribed an antibiotic and his symptoms resolved. He reports that his HIV medication was last changed approximately one year ago. He reports being compliant with his medication. He Developed a dry cough 6 days prior to admission, was seen at [facility] and prescribed amoxicillin, he then developed a rash approximate 2 days later. He was continued on Zithromax and Rocephin after admission. Pulmonary and Dr. Mathur were consulted. Repeat CXR ruled out PTX. On the morning after admission his shortness of breath, wheezing and rash were worse. He was started on solumedrol. He underwent CT chest which showed Lingular and RML pneumonia. ID was concerned about coccidiomycosis and fluconazole was added. He was having some improvement in his rash on the morning of 11/14. Patient seen and examined at beside. Stilling having some pain with coughing, overall felling better than yesterday, having some loose stools, no chest pain, no nausea. Objective - Vital Signs Vital signs: Vital Signs Temp 98.4 F 11/14/18 07:00 Pulse 60 11/14/18 08:49 Resp 17 11/14/18 07:35 BP 133/80 11/14/18 07:00 Pulse Ox 95 11/14/18 01:40 Intake & Output 11/13/18 11/14/18 11/14/18 18:59 06:59 18:59 Intake Total 2600 Balance 2600 Intake: Intake, IV Titration 1040 Amount Sodium Chloride 0.45% 1, 150 000 ml @ 75 mls/hr IV . [id number] [facility] Rx#:[id number] Sodium Chloride 0.9% 1, 840 000 ml @ 120 mls/hr IV . Q8H20M HARJINDER Rx#:[id number] cefTRIAXone 1 gm In 50 Sodium Chloride 0.9% 50 ml @ 100 mls/hr IVPB Q24HR HARJ[facility] Rx#:[id number] Oral 1560 Other: Voiding Method Toilet Toilet # Voids 3 1 1 - Exam General: ill appearing, no distress, no distress, appears at stated age Derm: warm, diaphoretic, Chest/back/arms with erythematous rash Head: atraumatic, normocephalic, symmetric Eyes: EOMI, no lid lag, anicteric sclera Mouth: no lip lesion, mucus membranes moist Cardiovascular: S1S2 reg, no murmur, positive posterior tibial pulse bilateral, Lungs: Course breath sounds , No accessory muscle use Abdominal: soft, nontender to palpation, no guarding, no appreciable organomegaly Ext: no gross muscle atrophy, no edema, no contractures Neuro: CN II-XI grossly intact, no focal neuro deficits Psych: Alert, oriented, appropriate affect - Labs CBC & Chem 7: 11/14/18 08:13 11/14/18 08:13 Labs: Abnormal Lab Results - Last 24 Hours (Table) 11/13/18 11/13/18 11/13/18 Range/Units 08:26 18:08 20:21 RBC (4.30-5.90) m/uL Hgb (13.0-17.5) gm/dL Hct (39.0-53.0) % Glucose (74-99) mg/dL POC Glucose (mg/dL) 240 H 230 H (75-99) mg/dL Calcium (8.4-10.2) mg/dL EBV Capsid Ag IgG Intrp POSITIVE H (NEGATIVE) EBV EA IgG Ab Interp POSITIVE H (NEGATIVE) EBV Nuc Ag IgG Interp POSITIVE H (NEGATIVE) 11/13/18 11/14/18 11/14/18 Range/Units 21:52 07:09 08:13 RBC 4.14 L (4.30-5.90) m/uL Hgb 12.3 L (13.0-17.5) gm/dL Hct 37.1 L (39.0-53.0) % Glucose (74-99) mg/dL POC Glucose (mg/dL) 242 H 197 H (75-99) mg/dL Calcium (8.4-10.2) mg/dL EBV Capsid Ag IgG Intrp (NEGATIVE) EBV EA IgG Ab Interp (NEGATIVE) EBV Nuc Ag IgG Interp (NEGATIVE) 11/14/18 Range/Units 08:13 RBC (4.30-5.90) m/uL Hgb (13.0-17.5) gm/dL Hct (39.0-53.0) % Glucose 188 H (74-99) mg/dL POC Glucose (mg/dL) (75-99) mg/dL Calcium 8.2 L (8.4-10.2) mg/dL EBV Capsid Ag IgG Intrp (NEGATIVE) EBV EA IgG Ab Interp (NEGATIVE) EBV Nuc Ag IgG Interp (NEGATIVE) Microbiology - Last 24 Hours (Table) 11/12/18 11:02 Blood Culture - Preliminary Blood No Growth after 24 hours Assessment and Plan Assessment: Community-acquired pneumonia with sepsis in the setting of HIV, concern for atypical or fungal -Continue his Zithromax and Rocephin, ID added fluconazole -Concern for possible PCP or coccidia, testing pending - EBV negative, CMV pending -ID recs appreciated: Last CD 08/14 normal with undetectable viral load - Lactic acid negative - Pulmonary hygiene - Pulm recs appreciated - Steroids and prn bronchodilators - Biktarvy Dermatitis -Continue to follow -Steroids Hyperglycemia, due to steroids - SSI - Add levemir Hypertension, accelerated on arrival -Norvasc Dyslipidemia -Pravachol and TriCor Hx Tobacco abuse - cessation Clinical dehydration, resolved DVT prophylaxis: Lovenox Discussed with: Patient, nursing Anticipated discharge date: 2-[address]: home A total of 25 minutes was spent on the care of this complex patient more than 50% of the time was spent in counseling and care coordination.
[2018-11-14 11:33] LABS: Glucose,Whole Blood 191 mg/dL (75-99)
--- NOTE | 2018-11-14 13:49 | P.PN ---
Subjective Progress Note Date: 11/14/18 Principal diagnosis: Acute pneumonia, with a large lingular consolidation and right middle lobe consolidation, possibly streptococcal, rule out fungal or atypical infection This is 63-year-old white male patient with past medical history of hypertension, hyperlipidemia, benign prostatic hypertrophy, former smoker, history of HIV, patient follows with Dr. Mathur, who came into the hospital on 11/12/2018 for evaluation of a fever and rash for 4 days. Patient was having severe coughing spells, nonproductive cough. Patient recently returned home from a trip from [place]. Patient was traveling by train from [place] to [place], to [place], and then [address] [place] [address] and returned home 3 weeks ago. Patient was site seeing and hiking at the various stops. He did seek medical care for right ear infection while in [place] was treated with Augmentin, completed the course and his symptoms of right earache and fullness was improving. He returned home, and a few days after he developed a dry cough, did have a fever spike of 101F. He went to the [facility], and apparently no treatment was ordered other than supportive treatment, he has right ear infection was improving. Patient was feeling worse, he was weak, could not get out of bed, developed a maculopapular rash all over his chest, abdomen, upper arms and back he was sent in the ER on November 11, was told that he was dehydrated, was given IV fluids, and Benadryl for his rash. Over the weekend his symptoms progressed, his rash seems to have spread to his lower torso, and upper parts of his legs, he states it feels hot but is not itchy. His temp was 10 4F, still has dry nonproductive cough, chest tightness. X-ray was taken revealing a left perihilar mass or pneumonia with a pleural reflection along the right apex, with the possibility of small pneumothorax. However on the subsequent chest x-ray there was no pneumothorax, and there is clearing of the infiltrate and atelectasis at the superior left pulmonary hilum, as read by the radiologist. CT chest was then obtained today showing a large lingular consolidation with additional areas of pneumonitis within the right middle lobe and within the l ingula, with the possibility of infectious etiology. Right now patient is on a combination of Zithromax and Rocephin, ID service consult pending. Room air pulse ox is 95%, hemodynamically stable, afebrile since admission, culture so far showed no growth. Labs on admission showed a white blood cell count of 7.8, hemoglobin of 13.5, sodium of 141, potassium is 3.7, chloride is 108, CO2 24, BUN is 16, creatinine is 1.10. Has normal lactic acid was 1.8, urinalysis showed trace protein, small amount of blood, negative for lupus, less than 1 WBC, less than 1 RBC, cytomegalovirus, EBV, and Legionella pending. On 11/14/2018 patient seen in follow-up on medical surgical floor. He is looking and feeling much better today, his rash is subsiding, he is less short of breath, less wheezy, room air pulse ox is 95%, no fever or chills, not tachycardic. Occasionally brings up small amount of phlegm, and culture has not been sent yet. Today's labs have been reviewed, white blood cell, 7.3, hemo globin is 12.3, electrolytes and renal profile are unremarkable. Patient is on a combination of azithromycin and Rocephin, and Diflucan has been added by ID service. Complaints of chest pain, cough has improved, patient is on Tessalon Perles, IV steroids, nebulized bronchodilators. Objective - Vital Signs Vital signs: Vital Signs Temp 98.4 F 11/14/18 07:00 Pulse 64 11/14/18 12:50 Resp 17 11/14/18 11:21 BP 133/80 11/14/18 07:00 Pulse Ox 95 11/14/18 01:40 Intake & Output 11/13/18 11/14/18 11/14/18 18:59 06:59 18:59 Intake Total 2600 Balance 2600 Intake: Intake, IV Titration 1040 Amount Sodium Chloride 0.45% 1, 150 000 ml @ 75 mls/hr IV . [id number] [facility] Rx#:[id number] Sodium Chloride 0.9% 1, 840 000 ml @ 120 mls/hr IV . Q8H20M [facility] Rx#:[id number] cefTRIAXone 1 gm In 50 Sodium Chloride 0.9% 50 ml @ 100 mls/hr IVPB Q24HR [facility] Rx#:[id number] Oral 1560 Other: Voiding Method Toilet Toilet # Voids 3 1 1 - Exam GENERAL EXAM: Alert, pleasant, 63-year-old white male, sitting up on the edge of the bed, in no acute distress HEAD: Normocephalic/atraumatic. EYES: Normal reaction of pupils, equal size. Conjunctiva pink, sclera white. NOSE: Clear with pink turbinates. THROAT: No erythema or exudates. NECK: No masses, no JVD, no thyroid enlargement, no adenopathy. CHEST: No chest wall deformity. Symmetrical expansion. LUNGS: Equal air entry with basilar crackles, no significant wheezes or rhonchi on today's exam CVS: Regular rate and rhythm, normal S1 and S2, no gallops, no murmurs, no rubs ABDOMEN: Soft, nontender. No hepatosplenomegaly, normal bowel sounds, no guarding or rigidity. EXTREMITIES: No clubbing, no edema, no cyanosis, 2+ pulses and upper and lower extremities. MUSCULOSKELETAL: Muscle strength and tone normal. SPINE: No scoliosis or deformity SKIN: Diffuse maculopapular rash with coalescence on patient's upper chest, some limited patches on the back and some limited rash on patient's neck CENTRAL NERVOUS SYSTEM: Alert and oriented -3. No focal deficits, tone is normal in all 4 extremities. PSYCHIATRIC: Alert and oriented -3. Appropriate affect. Intact judgment and insight. - Labs CBC & Chem 7: 11/14/18 08:13 11/14/18 08:13 Labs: Abnormal Lab Results - Last 24 Hours (Table) 11/13/18 11/13/18 11/13/18 Range/Units 08:26 18:08 20:21 RBC (4.30-5.90) m/uL Hgb (13.0-17.5) gm/dL Hct (39.0-53.0) % Glucose (74-99) mg/dL POC Glucose (mg/dL) 240 H 230 H (75-99) mg/dL Calcium (8.4-10.2) mg/dL EBV Capsid Ag IgG Intrp POSITIVE H (NEGATIVE) EBV EA IgG Ab Interp POSITIVE H (NEGATIVE) EBV Nuc Ag IgG Interp POSITIVE H (NEGATIVE) 11/13/18 11/14/18 11/14/18 Range/Units 21:52 07:09 08:13 RBC 4.14 L (4.30-5.90) m/uL Hgb 12.3 L (13.0-17.5) gm/dL Hct 37.1 L (39.0-53.0) % Glucose (74-99) mg/dL POC Glucose (mg/dL) 242 H 197 H (75-99) mg/dL Calcium (8.4-10.2) mg/dL EBV Capsid Ag IgG Intrp (NEGATIVE) EBV EA IgG Ab Interp (NEGATIVE) EBV Nuc Ag IgG Interp (NEGATIVE) 11/14/18 11/14/18 Range/Units 08:13 11:30 RBC (4.30-5.90) m/uL Hgb (13.0-17.5) gm/dL Hct (39.0-53.0) % Glucose 188 H (74-99) mg/dL POC Glucose (mg/dL) 191 H (75-99) mg/dL Calcium 8.2 L (8.4-10.2) mg/dL EBV Capsid Ag IgG Intrp (NEGATIVE) EBV EA IgG Ab Interp (NEGATIVE) EBV Nuc Ag IgG Interp (NEGATIVE) Microbiology - Last 24 Hours (Table) 11/12/18 11:02 Blood Culture - Preliminary Blood No Growth after 48 hours Assessment and Plan Plan: Assessment: #1. Acute dyspnea related to a large lingular consolidation with additional areas of pneumonitis in the right middle lobe and the lingula likely related to infectious etiology, possibly streptococcal infection, in the patient with known history of HIV #2. History of recent travel to [place], additional testing is in progress to rule out possibility of cocciodiosis #3. Maculopapular rash #4. History of immunodeficiency virus with his last HIV viral load undetectable, CD4 count of 684 in August 2018 #5. Hypertension #6. Hyperlipidemia #7. Former smoker #8. Suspect COPD Plan: Continue antibiotic coverage per ID service recommendations, continue IV steroids, nebulized bronchodilators, patient is feeling better, less coughing, less wheezing, no fever or chills, rashes subsided. We'll send a sputum for c ulture, overall patient seems to be improving. I performed a history & physical examination of the patient and discussed their management with my nurse practitioner, Radha Landry. I reviewed the nurse practitioner's note and agree with the documented findings and plan of care. Lung sounds are positive for diffuse wheezes throughout the lung salas. The findings and the impression was discussed with the patient. I attest to the documentation by the nurse practitioner. Time with Patient: Less than 30
[2018-11-14] MEDS: SODIUM CHLORIDE 0.45% 1,000 ML IV SCH (13:50)
[2018-11-14] MEDS: AZITHROMYCIN 500 MG TAB PO SCH (13:51)
[2018-11-14 17:02] LABS: Glucose,Whole Blood 179 mg/dL (75-99)
[2018-11-14] MEDS: INSULIN DETEMIR (LEVEMIR) 100 UNIT/ML SYR SQ SCH (21:15)
[2018-11-14 21:26] LABS: Glucose,Whole Blood 156 mg/dL (75-99)
[2018-11-14] MEDS: PRAVASTATIN SODIUM 20 MG TAB PO SCH (21:26)
[2018-11-14] MEDS: FENOFIBRATE 54 MG TAB PO SCH (21:26)
[2018-11-14] MEDS: MELATONIN 3 MG TABLET PO PRN (22:06)
--- NOTE | 2018-11-14 23:48 | P.PN ---
Subjective Progress Note Date: 11/14/18 This is a 63-year-old male well nontidal D service due to underlying history of HIV last seen in the office in August of this year and managed with Biktarvy 50-200-25 mg daily. Patient gives history of traveling by train from [place] to [facility], [facility], [place] and then return home 3 weeks ago. Patient did sightseeing and hiking at the various stops. While he was in [place] he developed a severe right sided ear infection was unable to eat or drink for 3 days. When he arrived in [place] he went to the clinic and was provided an antibiotic for a 10 day course which she completed once he received reached home. He states the infection traveled to his left ear and then finally healed. Shortly after that he developed cough that is nonproductive but constant, shortness of breath, fevers. He initially went to [place] on November 09 and was sent home without treatment and no new medications. He states he then spent 2 days and bad as he had high fevers and was extremely weak. He then came into [facility] emergency center on November 10. Chest x-ray, Influenza A and B and WBC were normal and patient received steroids and Benadryl, diagnosed with viral syndrome, viral exanthem and was discharged home. By that time, patient had developed a rash that started on his back and chest and then spread to his arms and is now spreading to his thighs. He denies any itchiness. He has also had sun exposure on the weekend causing redness to his face. Unfortunately, patient continued to have fever or cough, shortness of breath with generalized weakness and malaise, rash and came back into [facility] emergency center for evaluation on November 12. Temperature at that time was 104.2, he was tachycardic, blood pressure was on the low side at 91/53. White count was again normal, lactic acid 1.8. Urinalysis showed a small amount of blood. Initial chest x- ray revealed suspected left perihilar mass or pneumonia. Pleural reflection along the right apex. Although this may represent a small pneumothorax. Recommend a repeat frontal view and removal of any superficial dressing. Correlate for right-sided chest pain. Repeat chest x-ray this morning reveals no active cardiopulmonary disease. Normal heart. No pneumothorax. Patient is scheduled for CAT scan of the chest today and consult with Dr. Rey. Patient is currently on azithromycin and ceftriaxone. Blood cultures status received. Cytomegalovirus, EBV and Legionella pending. 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 There is a cat and a dog in the house. He denies any animal exposures during his recent travels. Patient previously worked at [facility] and denies any employment with exposure to toxic agents. He denies any unusual hobbies. 11/14/2018 patient is feeling somewhat better today. His fevers have started to improve. He is slightly less short of breath and is wheezing less. He was able to get some rest last night. He denies other new acute symptoms and noticed the rash is definitely improved. Objective - Vital Signs Vital signs: Vital Signs Temp 98.1 F 11/14/18 19:00 Pulse 75 11/14/18 23:05 Resp 17 11/14/18 19:00 BP 129/78 11/14/18 19:00 Pulse Ox 94 L 11/14/18 19:00 Intake & Output 11/14/18 11/14/18 11/15/18 06:59 18:59 06:59 Output Total 250 Balance -250 Output: Urine 250 Other: Voiding Method Toilet Toilet # Voids 1 1 - Exam Gen: This is a 63-year-old male. He is sitting in a recliner and appears to be in mild distress. Frequent coughing and shortness of breath noted . HEENT: Head is atraumatic, normocephalic. Pupils equal, round. Sclerae is anicteric. Conjunctiva pink. Mucous members of the mouth are moist. Oropharynx without erythema or edema. NECK: Supple. No JVD. No lymphadenopathy. No thyromegaly. LUNGS: The extensive wheezing that was noticed yesterday has improved bilaterally. Scattered expiratory wheezes are noted he does still have some egophony in the posterior mid left zone HEART: Regular rate and rhythm. No murmur. ABDOMEN: Soft. Bowel sounds are present. No masses. No tenderness. EXTREMITIES: No pedal edema bilaterally. No calf tenderness. Dorsalis pedis +1 bilaterally. SKIN: Maculopapular rash with coalescence mostly to the, upper chest. Mild involvement of bilateral arms and slight involvement of the upper thighs NEUROLOGICAL: Patient is awake, alert and oriented x3. - Labs CBC & Chem 7: 11/14/18 08:13 11/14/18 08:13 Labs: Abnormal Lab Results - Last 24 Hours (Table) 11/14/18 11/14/18 11/14/18 Range/Units 07:09 08:13 08:13 RBC 4.14 L (4.30-5.90) m/uL Hgb 12.3 L (13.0-17.5) gm/dL Hct 37.1 L (39.0-53.0) % Glucose 188 H (74-99) mg/dL POC Glucose (mg/dL) 197 H (75-99) mg/dL Calcium 8.2 L (8.4-10.2) mg/dL CMV IgG Ab (Non-Reactive) 11/14/18 11/14/18 11/14/18 Range/Units 08: 11:30 17:00 RBC (4.30-5.90) m/uL Hgb (13.0-17.5) gm/dL Hct (39.0-53.0) % Glucose (74-99) mg/dL POC Glucose (mg/dL) 191 H 179 H (75-99) mg/dL Calcium (8.4-10.2) mg/dL CMV IgG Ab Reactive H (Non-Reactive) 11/14/18 Range/Units 21:24 RBC (4.30-5.90) m/uL Hgb (13.0-17.5) gm/dL Hct (39.0-53.0) % Glucose (74-99) mg/dL POC Glucose (mg/dL) 156 H (75-99) mg/dL Calcium (8.4-10.2) mg/dL CMV IgG Ab (Non-Reactive) Microbiology - Last 24 Hours (Table) 11/12/18 11:02 Blood Culture - Preliminary Blood No Growth after 48 hours Laboratory Results WBC 10.3 k/uL (3.8-10.6) 11/14/18 08:13 RBC 4.14 m/uL (4.30-5.90) L 11/14/18 08:13 Hgb 12.3 gm/dL (13.0-17.5) L 11/14/18 08:13 Hct 37.1 % (39.0-53.0) L 11/14/18 08:13 MCV 89.6 fL (80.0-100.0) 11/14/18 08:13 MCH 29.8 pg (25.0-35.0) 11/14/18 08:13 MCHC 33.3 g/dL (31.0-37.0) 11/14/18 08:13 RDW 13.4 % (11.5-15.5) 11/14/18 08:13 Plt Count 165 k/uL (150-450) 11/14/18 08:13 Neutrophils % 89 % 11/13/18 08:26 Lymphocytes % 6 % 11/13/18 08:26 Monocytes % 3 % 11/13/18 08:26 Eosinophils % 1 % 11/13/18 08:26 Basophils % 0 % 11/13/18 08:26 Neutrophils # 9.4 k/uL (1.3-7.7) H 11/13/18 08:26 Lymphocytes # 0.7 k/uL (1.0-4.8) L 11/13/18 08:26 Monocytes # 0.3 k/uL (0-1.0) 11/13/18 08:26 Eosinophils # 0.1 k/uL (0-0.7) 11/13/18 08:26 Basophils # 0.0 k/uL (0-0.2) 11/13/18 08:26 Sodium 138 mmol/L (137-145) 11/14/18 08:13 Potassium 3.8 mmol/L (3.5-5.1) 11/14/18 08:13 Chloride 104 mmol/L (98-107) 11/14/18 08:13 Carbon Dioxide 24 mmol/L (22-30) 11/14/18 08:13 Anion Gap 10 mmol/L 11/14/18 08:13 BUN 13 mg/dL (9-20) 11/14/18 08:13 Creatinine 0.66 mg/dL (0.66-1.25) 11/14/18 08:13 Est GFR (CKD-EPI)AfAm >90 (>60 ml/min/1.73 sqM) 11/14/18 08:13 Est GFR (CKD-EPI)NonAf >90 (>60 ml/min/1.73 sqM) 11/14/18 08:13 Glucose 188 mg/dL (74-99) H 11/14/18 08:13 POC Glucose (mg/dL) 156 mg/dL (75-99) H 11/14/18 21:24 POC Glu Log Getter ID Olga Lidia Arriola 11/14/18 21:24 Plasma Lactic Acid Jero 1.8 mmol/L (0.7-2.0) 11/12/18 11:02 Calcium 8.2 mg/dL (8.4-10.2) L 11/14/18 08:13 Phosphorus 3.3 mg/dL (2.5-4.5) 11/13/18 08:26 Magnesium 2.0 mg/dL (1.6-2.3) 11/14/18 08:13 Total Bilirubin 0.3 mg/dL (0.2-1.3) 11/13/18 08:26 AST 47 U/L (17-59) 11/13/18 08:26 ALT 22 U/L (21-72) 11/13/18 08:26 Alkaline Phosphatase 48 U/L (38-126) 11/13/18 08:26 Lactate Dehydrogenase 586 U/L (313-618) 11/13/18 08:26 Total Protein 5.5 g/dL (6.3-8.2) L 11/13/18 08:26 Albumin 3.1 g/dL (3.5-5.0) L 11/13/18 08:26 Urine Color Yellow 11/12/18 12:30 Urine Appearance Clear (Clear) 11/12/18 12:30 Urine pH 5.5 (5.0-8.0) 11/12/18 12:30 Ur Specific [place] 1.019 (1.001-1.035) 11/12/18 12:30 Urine Protein Trace (Negative) H 11/12/18 12:30 Urine Glucose (UA) Negative (Negative) 11/12/18 12:30 Urine Ketones Negative (Negative) 11/12/18 12:30 Urine Blood Small (Negative) H 11/12/18 12:30 Urine Nitrite Negative (Negative) 11/12/18 12:30 Urine Bilirubin Negative (Negative) 11/12/18 12:30 Urine Urobilinogen <2.0 mg/dL (<2.0) 11/12/18 12:30 Ur Leukocyte Esterase Negative (Negative) 11/12/18 12:30 Urine RBC <1 /hpf (0-5) 11/12/18 12:30 Urine WBC <1 /hpf (0-5) 11/12/18 12:30 Ur Squamous Epith Cells <1 /hpf (0-4) 11/12/18 12:30 Urine Mucus Rare /hpf (None) H 11/12/18 12:30 CMV IgG Ab Reactive (Non-Reactive) H 11/14/18 08:13 CMV IgM Ab Non-Reactive (Non-Reactive) 11/14/18 08:13 EBV Capsid Ag IgG Ab >8.0 AI 11/13/18 08:26 EBV Capsid Ag IgG Intrp POSITIVE (NEGATIVE) H 11/13/18 08:26 EBV Capsid Ag IgM Ab 0.2 AI 11/13/18 08:26 EBV Capsid Ag IgM Intrp NEGATIVE (NEGATIVE) 11/13/18 08:26 EBV Early Antigen IgG 4.8 AI 11/13/18 08:26 EBV EA IgG Ab Interp POSITIVE (NEGATIVE) H 11/13/18 08:26 EBV Nuclear Ag IgG Ab >8.0 AI 11/13/18 08:26 EBV Nuc Ag IgG Interp POSITIVE (NEGATIVE) H 11/13/18 08:26 Microbiology 11/12/18 11:02 Blood Blood Culture - Preliminary No Growth after 48 hours Assessment and Plan (1) Fever Current Visit: Yes Status: Acute Code(s): R50.9 - FEVER, UNSPECIFIED SNOMED Code(s): 447724724 (2) Rash Current Visit: Yes Status: Acute Code(s): R21 - RASH AND OTHER NONSPECIFIC SKIN ERUPTION SNOMED Code(s): 507088549 (3) Pneumonia Narrative/Plan: As noted the patient was feeling well until his train trip to [place], [place] and then [place] before his return through [place] to [place]. The patient was exposed to many children several who appeared to be ill. His friends that he stayed with at the locations were not acutely ill. He did hike outside in [place] in the desert. He did spend time outside in both [place] as well as [place]. He did have a acute ear infection was treated with a course of azithromycin. He now is evidence by computed tomography scan of the distinct pneumonia. Antibiotic therapy with Rocephin and azithromycin is being utilized. There are the birds that they raise at the home and constantly the possibility of psittacosis is considered an serology is requested. The azithromycin is partly adequate for treatment. Legionella urinary antigens and also requested given the significant pneumonia in the rash that he developed it seems to be improving. Lastly serology for coccidiomycosis is requested and fluconazole intravenous will be added for now pending further results and his response to treatment. 11/14/2018 the patient is starting to feel somewhat better, fevers have started to improve and is somewhat less short of breath. With this we'll continue the current antimicrobial therapy. The multiple serologies are pending. Of note he has a high CD4 and intact overload for several years and the potential for pneumocystis is extremely low. 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 Current Visit: Yes Status: Acute Code(s): J18.9 - PNEUMONIA, UNSPECIFIED ORGANISM SNOMED Code(s): 193622639
[2018-11-15] MEDS: methylPREDNISolone SOD SUCCI 125 MG/2 ML VIAL IV SCH ×3 (00:02→12:58)
[2018-11-15] MEDS: SODIUM CHLORIDE 0.45% 1,000 ML IV SCH ×2 (03:59→15:31)
[2018-11-15 07:03] LABS: Glucose,Whole Blood 177 mg/dL (75-99)
[2018-11-15] MEDS: amLODIPine 10 MG TAB PO SCH (07:20)
[2018-11-15] MEDS: INSULIN ASPART (NovoLOG) 100 UNIT/ML VIAL SQ SCH ×4 (07:20→20:51)
[2018-11-15] MEDS: [UNRECOGNIZED DRUG - OTHER] PO SCH (07:21)
[2018-11-15] MEDS: ESCITALOPRAM 10 MG TAB PO SCH (07:22)
[2018-11-15] MEDS: ALBUTEROL NEBULIZED 2.5 MG/3 ML INHALATION PRN ×4 (08:28→20:58)
[2018-11-15 11:23] LABS: Glucose,Whole Blood 252 mg/dL (75-99)
--- NOTE | 2018-11-15 11:41 | P.PN ---
Subjective Progress Note Date: 11/15/18 Principal diagnosis: Acute pneumonia, with a large lingular consolidation and right middle lobe consolidation, possibly streptococcal, rule out fungal or atypical infection This is 63-year-old white male patient with past medical history of hypertension, hyperlipidemia, benign prostatic hypertrophy, former smoker, history of HIV, patient follows with Dr. Mathur, who came into the hospital on 11/12/2018 for evaluation of a fever and rash for 4 days. Patient was having severe coughing spells, nonproductive cough. Patient recently returned home from a trip from [place]. Patient was traveling by train from [place] to [place], to [place], and then [address] [place] [address] and returned home 3 weeks ago. Patient was site seeing and hiking at the various stops. He did seek medical care for right ear infection while in [place] was treated with Augmentin, completed the course and his symptoms of right earache and fullness was improving. He returned home, and a few days after he developed a dry cough, did have a fever spike of 101F. He went to the [employer], and apparently no treatment was ordered other than supportive treatment, he has right ear infection was improving. Patient was feeling worse, he was weak, could not get out of bed, developed a maculopapular rash all over his chest, abdomen, upper arms and back he was sent in the ER on November 11, was told that he was dehydrated, was given IV fluids, and Benadryl for his rash. Over the weekend his symptoms progressed, his rash seems to have spread to his lower torso, and upper parts of his legs, he states it feels hot but is not itchy. His temp was 10 4F, still has dry nonproductive cough, chest tightness. X-ray was taken revealing a left perihilar mass or pneumonia with a pleural reflection along the right apex, with the possibility of small pneumothorax. However on the subsequent chest x-ray there was no pneumothorax, and there is clearing of the infiltrate and atelectasis at the superior left pulmonary hilum, as read by the radiologist. CT chest was then obtained today showing a large lingular consolidation with additional areas of pneumonitis within the right middle lobe and within the l ingula, with the possibility of infectious etiology. Right now patient is on a combination of Zithromax and Rocephin, ID service consult pending. Room air pulse ox is 95%, hemodynamically stable, afebrile since admission, culture so far showed no growth. Labs on admission showed a white blood cell count of 7.8, hemoglobin of 13.5, sodium of 141, potassium is 3.7, chloride is 108, CO2 24, BUN is 16, creatinine is 1.10. Has normal lactic acid was 1.8, urinalysis showed trace protein, small amount of blood, negative for lupus, less than 1 WBC, less than 1 RBC, cytomegalovirus, EBV, and Legionella pending. On 11/14/2018 patient seen in follow-up on medical surgical floor. He is looking and feeling much better today, his rash is subsiding, he is less short of breath, less wheezy, room air pulse ox is 95%, no fever or chills, not tachycardic. Occasionally brings up small amount of phlegm, and culture has not been sent yet. Today's labs have been reviewed, white blood cell, 7.3, hemo globin is 12.3, electrolytes and renal profile are unremarkable. Patient is on a combination of azithromycin and Rocephin, and Diflucan has been added by ID service. Complaints of chest pain, cough has improved, patient is on Tessalon Perles, IV steroids, nebulized bronchodilators. On 11/15/2018 patient seen in follow-up on medical surgical floor. He is up walking around, in no acute distress, room air pulse ox is 96%, no fever or chills, his rash continues to subside, with minimal residual area on his upper back. Did have some coughing last night, not producing much sputum, we were unable to send a sputum culture, blood culture showed no growth, CMV IgG was reactive, EBV IgG was positive, urine legionella antigen is pending, uncle serologies pending, patient remains on accommodation Zithromax and Rocephin and fluconazole. Likely improving, lung sounds are positive for a few bibasilar crackles, no wheezing, no complaints of pleurisy, no fever or chills. Objective - Vital Signs Vital signs: Vital Signs Temp 97.6 F 11/15/18 07:00 Pulse 92 11/15/18 08:40 Resp 16 11/15/18 07:25 BP 125/73 11/15/18 07:00 Pulse Ox 96 11/15/18 07:00 Intake & Output 11/14/18 11/15/18 11/15/18 18:59 06:59 18:59 Intake Total 600 Output Total 250 Balance -250 600 Intake: Oral 600 Output: Urine 250 Other: Voiding Method Toilet Toilet Toilet # Voids 1 1 - Exam GENERAL EXAM: Alert, pleasant, 63-year-old white male, sitting up on the edge of the bed, in no acute distress HEAD: Normocephalic/atraumatic. EYES: Normal reaction of pupils, equal size. Conjunctiva pink, sclera white. NOSE: Clear with pink turbinates. THROAT: No erythema or exudates. NECK: No masses, no JVD, no thyroid enlargement, no adenopathy. CHEST: No chest wall deformity. Symmetrical expansion. LUNGS: Equal air entry with basilar crackles, no significant wheezes or rhonchi on today's exam CVS: Regular rate and rhythm, normal S1 and S2, no gallops, no murmurs, no rubs ABDOMEN: Soft, nontender. No hepatosplenomegaly, normal bowel sounds, no guarding or rigidity. EXTREMITIES: No clubbing, no edema, no cyanosis, 2+ pulses and upper and lower extremities. MUSCULOSKELETAL: Muscle strength and tone normal. SPINE: No scoliosis or deformity SKIN: Diffuse maculopapular rash with coalescence on patient's upper chest, some limited patches on the back and some limited rash on patient's neck CENTRAL NERVOUS SYSTEM: Alert and oriented -3. No focal deficits, tone is normal in all 4 extremities. PSYCHIATRIC: Alert and oriented -3. Appropriate affect. Intact judgment and insight. - Labs CBC & Chem 7: 11/14/18 08:13 11/14/18 08:13 Labs: Abnormal Lab Results - Last 24 Hours (Table) 11/14/18 11/14/18 11/14/18 Range/Units 08:13 17:00 21:24 POC Glucose (mg/dL) 179 H 156 H (75-99) mg/dL CMV IgG Ab Reactive H (Non-Reactive) 11/15/18 11/15/18 Range/Units 06:59 11:21 POC Glucose (mg/dL) 177 H 252 H (75-99) mg/dL CMV IgG Ab (Non-Reactive) Microbiology - Last 24 Hours (Table) 11/12/18 11:02 Blood Culture - Preliminary Blood No Growth after 48 hours Assessment and Plan Plan: Assessment: #1. Acute dyspnea related to a large lingular consolidation with additional areas of pneumonitis in the right middle lobe and the lingula likely related to infectious etiology, possibly streptococcal infection, in the patient with known history of HIV #2. History of recent travel to [place], additional testing is in progress to rule out possibility of cocciodiosis #3. Maculopapular rash #4. History of immunodeficiency virus with his last HIV viral load undetectable, CD4 count of 684 in August 2018 #5. Hypertension #6. Hyperlipidemia #7. Former smoker #8. Suspect COPD Plan: Still awaiting results of the fungal serology, we were unable to collect a sputum culture, Legionella urinary antigen is pending. Clinically patient is s ignificantly improved, he is asking to go home today, tolerating ambulation, denies any dyspnea, still has some residual cough, no phlegm production. Room air pulse ox is 96%, no fever or chills. We'll obtain follow-up chest x-ray today, will await further recommendations from ID service. I performed a history & physical examination of the patient and discussed their management with my nurse practitioner, Radha Landry. I reviewed the nurse practitioner's note and agree with the documented findings and plan of care. Lung sounds are positive for diffuse wheezes throughout the lung salas. The findings and the impression was discussed with the patient. I attest to the documentation by the nurse practitioner. Time with Patient: Less than 30
--- NOTE | 2018-11-15 12:36 | XR ---
EXAMINATION TYPE: XR chest 2V DATE OF EXAM: 11/15/2018 COMPARISON: CT scan 11/13/2018 TECHNIQUE: PA and lateral views submitted. HISTORY: Cough FINDINGS: There is a patchy infiltrate in the right upper lobe which has a nodular pattern. Subsegmental change s involving the lingular segment left upper lobe noted. No pleural effusion or pneumothorax. IMPRESSION: 1. Bilateral areas of infiltrate. May been the basis of a pneumonia or pneumonitis. Follow-up to reso lution is recommended to exclude underlying neoplasm.
[2018-11-15] MEDS: AZITHROMYCIN 500 MG TAB PO SCH (12:58)
--- NOTE | 2018-11-15 16:08 | P.PN ---
Subjective Progress Note Date: 11/15/18 (delayed charting seen at 1030) Principal diagnosis: fever and rash Patient is a 63-year-old male with a past medical history of hypertension, dyslipidemia, prostate enlargement, and HIV with last HIV viral load undetectable, CD4 count 684 in August 2018 who presented to the emergency department with complaints of cough. In the ER he underwent an extensive evaluation. On arrival his temperature was 102.2 and he was tachycardic with heart rate of 109. Blood pressure was elevated at 170/93. Approximately 30 minutes after admission his fever spiked to 104.2. Initial laboratory analysis was essentially unremarkable. Urinalysis was negative. His chest x-ray showed a left perihilar pneumonia along with a pleural reflection along the right apex that may represent a 10-15% pneumothorax. In the ER he was given a dose of Zithromax, Rocephin, Solu-Medrol, and Bactrim. He was admitted for further workup of his pneumonia with sepsis. He reports that in the last month he did take a train trip to the [facility]. He developed acute otitis media affecting the right ear that moved the left. At that point in time he was prescribed an antibiotic and his symptoms resolved. He reports that his HIV medication was last changed approximately one year ago. He reports being compliant with his medication. He Developed a dry cough 6 days prior to admission, was seen at [facility] and prescribed amoxicillin, he then developed a rash approximate 2 days later. He was continued on Zithromax and Rocephin after admission. Pulmonary and Dr. Mathur were consulted. Repeat CXR ruled out PTX. On the morning after admission his shortness of breath, wheezing and rash were worse. He was started on solumedrol. He underwent CT chest which showed Lingular and RML pneumonia. ID was concerned about coccidiomycosis and fluconazole was added. He was having some improvement in his rash on the morning of 11/14. He continued to better on he felt he did better and his rash had improved. Patient seen and examined at beside. Feeling better today. Shortness of breath and wheezing is slightly improved with breathing treatments. Rash is getting better. Not feeling as tired yesterday. Had several loose bowel movements but no overt diarrhea. Denies any nausea or vomiting. Feeling better and requesting to go home. Explained to patient that we are waiting for further testing results. Objective - Vital Signs Vital signs: Vital Signs Temp 97.9 F 11/15/18 14:31 Pulse 80 11/15/18 14:31 Resp 17 11/15/18 14:31 BP 106/56 11/15/18 14:31 Pulse Ox 96 11/15/18 07:00 Intake & Output 11/14/18 11/15/18 11/15/18 18:59 06:59 18:59 Intake Total 1675 Output Total 250 Balance -250 1675 Intake: Intake, IV Titration 875 Amount Fluconazole in NaCl,Iso- 200 Osm 400 mg In Saline 1 200ml.bag @ 100 mls/hr IVPB DAILY@2100 [facility] Rx#: [id number] Sodium Chloride 0.45% 1, 625 000 ml @ 75 mls/hr IV . [id number] [facility] Rx#:[id number] cefTRIAXone 1 gm In 50 Sodium Chloride 0.9% 50 ml @ 100 mls/hr IVPB Q24HR [facility] Rx#:[id number] Oral 800 Output: Urine 250 Other: Voiding Method Toilet Toilet Toilet # Voids 1 1 2 - Exam General: Nontoxic, no distress, no distress, appears at stated age Derm: warm, diaphoretic, Chest/back erythematous rash -has cleared from arms Head: atraumatic, normocephalic, symmetric Eyes: EOMI, no lid lag, anicteric sclera Mouth: no lip lesion, mucus membranes moist Cardiovascular: S1S2 reg, no murmur, positive posterior tibial pulse bilateral, Lungs: Rhonchi bilateral, No accessory muscle use Abdominal: soft, nontender to palpation, no guarding, no appreciable organomegaly Ext: no gross muscle atrophy, no edema, no contractures Neuro: CN II-XI grossly intact, no focal neuro deficits Psych: Alert, oriented, appropriate affect - Labs CBC & Chem 7: 11/14/18 08:13 11/14/18 08:13 Labs: Abnormal Lab Results - Last 24 Hours (Table) 11/14/18 11/14/18 11/14/18 Range/Units 08:13 17:00 21:24 POC Glucose (mg/dL) 179 H 156 H (75-99) mg/dL CMV IgG Ab Reactive H (Non-Reactive) 11/15/18 11/15/18 Range/Units 06:59 11:21 POC Glucose (mg/dL) 177 H 252 H (75-99) mg/dL CMV IgG Ab (Non-Reactive) Microbiology - Last 24 Hours (Table) 11/12/18 11:02 Blood Culture - Preliminary Blood No Growth after 72 hours Assessment and Plan Assessment: Community-acquired pneumonia with sepsis in the setting of HIV, concern for atypical or fungal -Continue his Zithromax and Rocephin, fluconazole - Decrease solumedrol, prn bronchodilators -Concern for possible fungal pneumonia testing pending - EBV and CMV past exposure - ID recs appreciated: Last CD 08/14 normal with undetectable viral load - Lactic acid negative - Pulmonary hygiene - Pulm recs appreciated - Steroids and prn bronchodilators - Biktarvy Dermatitis -Continue to follow -Steroids Hyperglycemia, due to steroids - SSI - levemir - follow BS Hypertension, accelerated on arrival -Norvasc Dyslipidemia -Pravachol and TriCor Hx Tobacco abuse - cessation Clinical dehydration, resolved Discharge when okay with ID DVT prophylaxis: Lovenox Discussed with: Patient, nursing Anticipated discharge date: 1-[address]: home A total of 25 minutes was spent on the care of this complex patient more than 50% of the time was spent in counseling and care coordination.
[2018-11-15 16:30] LABS: Glucose,Whole Blood 185 mg/dL (75-99)
[2018-11-15 20:13] LABS: Glucose,Whole Blood 245 mg/dL (75-99)
[2018-11-15] MEDS: FENOFIBRATE 54 MG TAB PO SCH (20:51)
[2018-11-15] MEDS: PRAVASTATIN SODIUM 20 MG TAB PO SCH (20:51)
[2018-11-15] MEDS: INSULIN DETEMIR (LEVEMIR) 100 UNIT/ML SYR SQ SCH (20:53)
[2018-11-15] MEDS: FLUCONAZOLE IN NACL,ISO-OSM 400 MG in SALINE 1 200ML.BAG IVPB SCH (21:49)
[2018-11-15] MEDS: methylPREDNISolone SOD SUCCI 40 MG/ML 1 ML VIAL IV SCH (23:18)
[2018-11-15] MEDS: MELATONIN 3 MG TABLET PO PRN (23:18)
--- NOTE | 2018-11-16 00:16 | P.PN ---
Subjective Progress Note Date: 11/16/18 This is a 63-year-old male well nontidal D service due to underlying history of HIV last seen in the office in August of this year and managed with Biktarvy 50-200-25 mg daily. Patient gives history of traveling by train from [place] to [facility], [facility], [place] and then return home 3 weeks ago. Patient did sightseeing and hiking at the various stops. While he was in [place] he developed a severe right sided ear infection was unable to eat or drink for 3 days. When he arrived in [place] he went to the clinic and was provided an antibiotic for a 10 day course which she completed once he received reached home. He states the infection traveled to his left ear and then finally healed. Shortly after that he developed cough that is nonproductive but constant, shortness of breath, fevers. He initially went to [employer] on November 09 and was sent home without treatment and no new medications. He states he then spent 2 days and bad as he had high fevers and was extremely weak. He then came into [facility] emergency center on November 10. Chest x-ray, Influenza A and B and WBC were normal and patient received steroids and Benadryl, diagnosed with viral syndrome, viral exanthem and was discharged home. By that time, patient had developed a rash that started on his back and chest and then spread to his arms and is now spreading to his thighs. He denies any itchiness. He has also had sun exposure on the weekend causing redness to his face. Unfortunately, patient continued to have fever or cough, shortness of breath with generalized weakness and malaise, rash and came back into [facility] emergency center for evaluation on November 12. Temperature at that time was 104.2, he was tachycardic, blood pressure was on the low side at 91/53. White count was again normal, lactic acid 1.8. Urinalysis showed a small amount of blood. Initial chest x- ray revealed suspected left perihilar mass or pneumonia. Pleural reflection along the right apex. Although this may represent a small pneumothorax. Recommend a repeat frontal view and removal of any superficial dressing. Correlate for right-sided chest pain. Repeat chest x-ray this morning reveals no active cardiopulmonary disease. Normal heart. No pneumothorax. Patient is scheduled for CAT scan of the chest today and consult with Dr. Rey. Patient is currently on azithromycin and ceftriaxone. Blood cultures status received. Cytomegalovirus, EBV and Legionella pending. 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 There is a cat and a dog in the house. He denies any animal exposures during his recent travels. Patient previously worked at [facility] and denies any employment with exposure to toxic agents. He denies any unusual hobbies. 11/14/2018 patient is feeling somewhat better today. His fevers have started to improve. He is slightly less short of breath and is wheezing less. He was able to get some rest last night. He denies other new acute symptoms and noticed the rash is definitely improved. 11/15/2018 patient has had further improvement of his status. He'll let short of breath still has some dryness to his throat and voice is not quite completely recovered but his fever has resolved shoulder resolved definitely feels better. Objective - Vital Signs Vital signs: Vital Signs Temp 98.0 F 11/15/18 19:25 Pulse 69 11/15/18 21:13 Resp 16 11/15/18 19:25 BP 129/73 11/15/18 19:25 Pulse Ox 96 11/15/18 20:59 Intake & Output 11/15/18 11/15/18 11/16/18 06:59 18:59 06:59 Intake Total 1675 Balance 1675 Intake: Intake, IV Titration 875 Amount Fluconazole in NaCl,Iso- 200 Osm 400 mg In Saline 1 200ml.bag @ 100 mls/hr IVPB DAILY@2100 [facility] Rx#: [id number] Sodium Chloride 0.45% 1, 625 000 ml @ 75 mls/hr IV . [id number] [facility] Rx#:[id number] cefTRIAXone 1 gm In 50 Sodium Chloride 0.9% 50 ml @ 100 mls/hr IVPB Q24HR [facility] Rx#:[id number] Oral 800 Other: Voiding Method Toilet Toilet # Voids 1 2 - Exam Gen: This is a 63-year-old male. He is sitting in a recliner and appears to be in mild distress. Frequent coughing and shortness of breath noted. HEENT: Head is atraumatic, normocephalic. Pupils equal, round. Sclerae is anicteric. Conjunctiva pink. Mucous members of the mouth are moist. Oropharynx without erythema or edema. NECK: Supple. No JVD. No lymphadenopathy. No thyromegaly. LUNGS: The extensive wheezing that was noticed yesterday has improved bilaterally. Scattered expiratory wheezes are noted he does still have some egophony in the posterior mid left zone HEART: Regular rate and rhythm. No murmur. ABDOMEN: Soft. Bowel sounds are present. No masses. No tenderness. EXTREMITIES: No pedal edema bilaterally. No calf tenderness. Dorsalis pedis +1 bilaterally. SKIN: Maculopapular rash with coalescence mostly to the, upper chest. Mild involvement of bilateral arms and slight involvement of the upper thighs NEUROLOGICAL: Patient is awake, alert and oriented x3. - Labs CBC & Chem 7: 11/14/18 08:13 11/14/18 08:13 Labs: Abnormal Lab Results - Last 24 Hours (Table) 11/13/18 11/15/18 11/15/18 Range/Units 15:40 06:59 11:21 POC Glucose (mg/dL) 177 H 252 H (75-99) mg/dL C. pneumoniae IgG Ab >=1:512 H (<1:64) titer 11/15/18 11/15/18 Range/Units 16:27 20:04 POC Glucose (mg/dL) 185 H 245 H (75-99) mg/dL C. pneumoniae IgG Ab (<1:64) titer Microbiology - Last 24 Hours (Table) 11/12/18 11:02 Blood Culture - Preliminary Blood No Growth after 72 hours Laboratory Results WBC 10.3 k/uL (3.8-10.6) 11/14/18 08:13 RBC 4.14 m/uL (4.30-5.90) L 11/14/18 08:13 Hgb 12.3 gm/dL (13.0-17.5) L 11/14/18 08:13 Hct 37.1 % (39.0-53.0) L 11/14/18 08:13 MCV 89.6 fL (80.0-100.0) 11/14/18 08:13 MCH 29.8 pg (25.0-35.0) 11/14/18 08:13 MCHC 33.3 g/dL (31.0-37.0) 11/14/18 08:13 RDW 13.4 % (11.5-15.5) 11/14/18 08:13 Plt Count 165 k/uL (150-450) 11/14/18 08:13 Neutrophils % 89 % 11/13/18 08:26 Lymphocytes % 6 % 11/13/18 08:26 Monocytes % 3 % 11/13/18 08:26 Eosinophils % 1 % 11/13/18 08:26 Basophils % 0 % 11/13/18 08:26 Neutrophils # 9.4 k/uL (1.3-7.7) H 11/13/18 08:26 Lymphocytes # 0.7 k/uL (1.0-4.8) L 11/13/18 08:26 Monocytes # 0.3 k/uL (0-1.0) 11/13/18 08:26 Eosinophils # 0.1 k/uL (0-0.7) 11/13/18 08:26 Basophils # 0.0 k/uL (0-0.2) 11/13/18 08:26 Sodium 138 mmol/L (137-145) 11/14/18 08:13 Potassium 3.8 mmol/L (3.5-5.1) 11/14/18 08:13 Chloride 104 mmol/L (98-107) 11/14/18 08:13 Carbon Dioxide 24 mmol/L (22-30) 11/14/18 08:13 Anion Gap 10 mmol/L 11/14/18 08:13 BUN 13 mg/dL (9-20) 11/14/18 08:13 Creatinine 0.66 mg/dL (0.66-1.25) 11/14/18 08:13 Est GFR (CKD-EPI)AfAm >90 (>60 ml/min/1.73 sqM) 11/14/18 08:13 Est GFR (CKD-EPI)NonAf >90 (>60 ml/min/1.73 sqM) 11/14/18 08:13 Glucose 188 mg/dL (74-99) H 11/14/18 08:13 POC Glucose (mg/dL) 245 mg/dL (75-99) H 11/15/18 20:04 POC Glu It Programmer ID Rm, Charley 11/15/18 20:04 Plasma Lactic Acid Jero 1.8 mmol/L (0.7-2.0) 11/12/18 11:02 Calcium 8.2 mg/dL (8.4-10.2) L 11/14/18 08:13 Phosphorus 3.3 mg/dL (2.5-4.5) 11/13/18 08:26 Magnesium 2.0 mg/dL (1.6-2.3) 11/14/18 08:13 Total Bilirubin 0.3 mg/dL (0.2-1.3) 11/13/18 08:26 AST 47 U/L (17-59) 11/13/18 08:26 ALT 22 U/L (21-72) 11/13/18 08:26 Alkaline Phosphatase 48 U/L (38-126) 11/13/18 08:26 Lactate Dehydrogenase 586 U/L (313-618) 11/13/18 08:26 Total Protein 5.5 g/dL (6.3-8.2) L 11/13/18 08:26 Albumin 3.1 g/dL (3.5-5.0) L 11/13/18 08:26 Urine Color Yellow 11/12/18 12:30 Urine Appearance Clear (Clear) 11/12/18 12:30 Urine pH 5.5 (5.0-8.0) 11/12/18 12:30 Ur Specific [place] 1.019 (1.001-1.035) 11/12/18 12:30 Urine Protein Trace (Negative) H 11/12/18 12:30 Urine Glucose (UA) Negative (Negative) 11/12/18 12:30 Urine Ketones Negative (Negative) 11/12/18 12:30 Urine Blood Small (Negative) H 11/12/18 12:30 Urine Nitrite Negative (Negative) 11/12/18 12:30 Urine Bilirubin Negative (Negative) 11/12/18 12:30 Urine Urobilinogen <2.0 mg/dL (<2.0) 11/12/18 12:30 Ur Leukocyte Esterase Negative (Negative) 11/12/18 12:30 Urine RBC <1 /hpf (0-5) 11/12/18 12:30 Urine WBC <1 /hpf (0-5) 11/12/18 12:30 Ur Squamous Epith Cells <1 /hpf (0-4) 11/12/18 12:30 Urine Mucus Rare /hpf (None) H 11/12/18 12:30 C. pneumoniae IgG Ab >=1:512 titer (<1:64) H 11/13/18 15:40 C. pneumoniae IgM Ab <1:10 titer (<1:10) 11/13/18 15:40 C. trachomatis IgG Ab <1:64 titer (<1:64) 11/13/18 15:40 C. trachomatis IgM Ab <1:10 titer (<1:10) 11/13/18 15:40 C. psittaci IgG Ab <1:64 titer (<1:64) 11/13/18 15:40 C. psittaci IgM Ab <1:10 titer (<1:10) 11/13/18 15:40 CMV IgG Ab Reactive (Non-Reactive) H 11/14/18 08:13 CMV IgM Ab Non-Reactive (Non-Reactive) 11/14/18 08:13 EBV Capsid Ag IgG Ab >8.0 AI 11/13/18 08:26 EBV Capsid Ag IgG Intrp POSITIVE (NEGATIVE) H 11/13/18 08:26 EBV Capsid Ag IgM Ab 0.2 AI 11/13/18 08:26 EBV Capsid Ag IgM Intrp NEGATIVE (NEGATIVE) 11/13/18 08:26 EBV Early Antigen IgG 4.8 AI 11/13/18 08:26 EBV EA IgG Ab Interp POSITIVE (NEGATIVE) H 11/13/18 08:26 EBV Nuclear Ag IgG Ab >8.0 AI 11/13/18 08:26 EBV Nuc Ag IgG Interp POSITIVE (NEGATIVE) H 11/13/18 08:26 Urine Legionella Ag Not detected (Not detected) 11/13/18 11:00 Miscellaneous Test Beta D Glucan 11/13/18 08:26 Misc Test Result See comment 11/13/18 08:26 - Imaging and Cardiology Chest x-ray: report reviewed (Improvement of the bilateral infiltrate) Assessment and Plan (1) Fever Current Visit: Yes Status: Acute Code(s): R50.9 - FEVER, UNSPECIFIED SNOMED Code(s): 055711712 (2) Rash Current Visit: Yes Status: Acute Code(s): R21 - RASH AND OTHER NONSPECIFIC SKIN ERUPTION SNOMED Code(s): 209847020 (3) Pneumonia Narrative/Plan: As noted the patient was feeling well until his train trip to [place], [place] and then [place] before his return through [place] to [place]. The patient was exposed to many children several who appeared to be ill. His friends that he stayed with at the locations were not acutely ill. He did hike outside in [place] in the [place]. He did spend time outside in both [place] as well as [place]. He did have a acute ear infection was treated with a course of azithromycin. He now is evidence by computed tomography scan of the distinct pneumonia. Antibiotic therapy with Rocephin and azithromycin is being utilized. There are the birds that they raise at the home and constantly the possibility of psittacosis is considered an serology is requested. The azithromycin is partly adequate for treatment. Legionella urinary antigens and also requested given the significant pneumonia in the rash that he developed it seems to be improving. Lastly serology for coccidiomycosis is requested and fluconazole intravenous will be added for now pending further results and his response to treatment. 11/14/2018 the patient is starting to feel somewhat better, fevers have started to improve and is somewhat less short of breath. With this we'll continue the current antimicrobial therapy. The multiple serologies are pending. Of note he has a high CD4 and intact overload for several years and the potential for pneumocystis is extremely low. 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 11/15/2018 the patient is feeling considerably better. Fevers have resolved. Shortness of breath is improved. Overall his marked improvement of his status with the current treatments. Laboratories reveal evidence of chlamydia pn eumoniae high titer highly suggestive of recent infection. At this time no evidence of coccidial mycoses fluconazole was discontinued. Patient will be discharged on a 10 day course of oral azithromycin to complete the treatment of his chlamydia pneumonia infection. Follow up in the office. Current Visit: Yes Status: Acute Code(s): J18.9 - PNEUMONIA, UNSPECIFIED ORGANISM SNOMED Code(s): 078774152
[2018-11-16] MEDS: SODIUM CHLORIDE 0.45% 1,000 ML IV SCH (05:14)
[2018-11-16 06:49] LABS: Glucose,Whole Blood 184 mg/dL (75-99)
[2018-11-16 07:25] VITALS: BP 135/83; RESP 16; TEMP 97.6
[2018-11-16] MEDS: INSULIN ASPART (NovoLOG) 100 UNIT/ML VIAL SQ SCH ×2 (07:49→13:01)
[2018-11-16] MEDS: methylPREDNISolone SOD SUCCI 40 MG/ML 1 ML VIAL IV SCH (07:49)
[2018-11-16] MEDS: amLODIPine 10 MG TAB PO SCH (07:49)
[2018-11-16] MEDS: [UNRECOGNIZED DRUG - OTHER] PO SCH (07:50)
[2018-11-16] MEDS: ESCITALOPRAM 10 MG TAB PO SCH (07:50)
[2018-11-16] MEDS: ALBUTEROL NEBULIZED 2.5 MG/3 ML INHALATION PRN (08:14)
[2018-11-16 08:28] VITALS: PULSE 74
[2018-11-16 11:02] LABS: Glucose,Whole Blood 185 mg/dL (75-99)
--- NOTE | 2018-11-16 12:02 | P.PN ---
Subjective Progress Note Date: 11/16/18 Principal diagnosis: Acute pneumonia, with a large lingular consolidation and right middle lobe consolidation, possibly streptococcal, rule out fungal or atypical infection This is 63-year-old white male patient with past medical history of hypertension, hyperlipidemia, benign prostatic hypertrophy, former smoker, history of HIV, patient follows with Dr. Mathur, who came into the hospital on 11/12/2018 for evaluation of a fever and rash for 4 days. Patient was having severe coughing spells, nonproductive cough. Patient recently returned home from a trip from [place]. Patient was traveling by train from [place] to [place], to [place], and then [address] [place] [address] and returned home 3 weeks ago. Patient was site seeing and hiking at the various stops. He did seek medical care for right ear infection while in [place] was treated with Augmentin, completed the course and his symptoms of right earache and fullness was improving. He returned home, and a few days after he developed a dry cough, did have a fever spike of 101F. He went to the [facility], and apparently no treatment was ordered other than supportive treatment, he has right ear infection was improving. Patient was feeling worse, he was weak, could not get out of bed, developed a maculopapular rash all over his chest, abdomen, upper arms and back he was sent in the ER on November 11, was told that he was dehydrated, was given IV fluids, and Benadryl for his rash. Over the weekend his symptoms progressed, his rash seems to have spread to his lower torso, and upper parts of his legs, he states it feels hot but is not itchy. His temp was 10 4F, still has dry nonproductive cough, chest tightness. X-ray was taken revealing a left perihilar mass or pneumonia with a pleural reflection along the right apex, with the possibility of small pneumothorax. However on the subsequent chest x-ray there was no pneumothorax, and there is clearing of the infiltrate and atelectasis at the superior left pulmonary hilum, as read by the radiologist. CT chest was then obtained today showing a large lingular consolidation with additional areas of pneumonitis within the right middle lobe and within the l ingula, with the possibility of infectious etiology. Right now patient is on a combination of Zithromax and Rocephin, ID service consult pending. Room air pulse ox is 95%, hemodynamically stable, afebrile since admission, culture so far showed no growth. Labs on admission showed a white blood cell count of 7.8, hemoglobin of 13.5, sodium of 141, potassium is 3.7, chloride is 108, CO2 24, BUN is 16, creatinine is 1.10. Has normal lactic acid was 1.8, urinalysis showed trace protein, small amount of blood, negative for lupus, less than 1 WBC, less than 1 RBC, cytomegalovirus, EBV, and Legionella pending. On 11/14/2018 patient seen in follow-up on medical surgical floor. He is looking and feeling much better today, his rash is subsiding, he is less short of breath, less wheezy, room air pulse ox is 95%, no fever or chills, not tachycardic. Occasionally brings up small amount of phlegm, and culture has not been sent yet. Today's labs have been reviewed, white blood cell, 7.3, hemo globin is 12.3, electrolytes and renal profile are unremarkable. Patient is on a combination of azithromycin and Rocephin, and Diflucan has been added by ID service. Complaints of chest pain, cough has improved, patient is on Tessalon Perles, IV steroids, nebulized bronchodilators. On 11/15/2018 patient seen in follow-up on medical surgical floor. He is up walking around, in no acute distress, room air pulse ox is 96%, no fever or chills, his rash continues to subside, with minimal residual area on his upper back. Did have some coughing last night, not producing much sputum, we were unable to send a sputum culture, blood culture showed no growth, CMV IgG was reactive, EBV IgG was positive, urine legionella antigen is pending, uncle serologies pending, patient remains on accommodation Zithromax and Rocephin and fluconazole. Likely improving, lung sounds are positive for a few bibasilar crackles, no wheezing, no complaints of pleurisy, no fever or chills. On 11/16/2018 patient seen in follow-up on medical surgical floor. He continues to improve, still has a slightly congested cough, no phlegm production, denies any chest pain, denies any hemoptysis, no fever or chills, the rash continues to subside. No acute events overnight, lung sounds are positive for a few basilar rales, no rhonchi or wheezes. Patient is on IV Rocephin and Zithromax, lab work revealed evidence of chlamydia pneumonia high titer, and the recommendation from ID service was to discharge the patient home on 10 day course of oral Zithromax. Objective - Vital Signs Vital signs: Vital Signs Temp 97.6 F 11/16/18 07:00 Pulse 74 11/16/18 08:25 Resp 16 11/16/18 07:00 BP 135/83 11/16/18 07:00 Pulse Ox 95 11/16/18 07:00 Intake & Output 11/15/18 11/16/18 11/16/18 18:59 06:59 18:59 Intake Total 1675 Balance 1675 Intake: Intake, IV Titration 875 Amount Fluconazole in NaCl,Iso- 200 Osm 400 mg In Saline 1 200ml.bag @ 100 mls/hr IVPB DAILY@2100 [facility] Rx#: [id number] Sodium Chloride 0.45% 1, 625 000 ml @ 75 mls/hr IV . [id number] [facility] Rx#:[id number] cefTRIAXone 1 gm In 50 Sodium Chloride 0.9% 50 ml @ 100 mls/hr IVPB Q24HR [facility] Rx#:[id number] Oral 800 Other: Voiding Method Toilet Toilet # Voids 2 - Exam GENERAL EXAM: Alert, pleasant, 63-year-old white male, sitting up on the edge of the bed, in no acute distress HEAD: Normocephalic/atraumatic. EYES: Normal reaction of pupils, equal size. Conjunctiva pink, sclera white. NOSE: Clear with pink turbinates. THROAT: No erythema or exudates. NECK: No masses, no JVD, no thyroid enlargement, no adenopathy. CHEST: No chest wall deformity. Symmetrical expansion. LUNGS: Equal air entry with basilar crackles, no significant wheezes or rhonchi on today's exam CVS: Regular rate and rhythm, normal S1 and S2, no gallops, no murmurs, no rubs ABDOMEN: Soft, nontender. No hepatosplenomegaly, normal bowel sounds, no guarding or rigidity. EXTREMITIES: No clubbing, no edema, no cyanosis, 2+ pulses and upper and lower extremities. MUSCULOSKELETAL: Muscle strength and tone normal. SPINE: No scoliosis or deformity SKIN: Diffuse maculopapular rash with coalescence on patient's upper chest, some limited patches on the back and some limited rash on patient's neck CENTRAL NERVOUS SYSTEM: Alert and oriented -3. No focal deficits, tone is normal in all 4 extremities. PSYCHIATRIC: Alert and oriented -3. Appropriate affect. Intact judgment and insight. - Labs CBC & Chem 7: 11/14/18 08:13 11/14/18 08:13 Labs: Abnormal Lab Results - Last 24 Hours (Table) 11/13/18 11/15/18 11/15/18 Range/Units 15:40 16:27 20:04 POC Glucose (mg/dL) 185 H 245 H (75-99) mg/dL C. pneumoniae IgG Ab >=1:512 H (<1:64) titer 11/16/18 11/16/18 Range/Units 06:47 11:00 POC Glucose (mg/dL) 184 H 185 H (75-99) mg/dL C. pneumoniae IgG Ab (<1:64) titer Microbiology - Last 24 Hours (Table) 11/12/18 11:02 Blood Culture - Preliminary Blood No Growth after 72 hours Assessment and Plan Plan: Assessment: #1. Acute dyspnea related to a large lingular consolidation with additional areas of pneumonitis in the right middle lobe and the lingula likely related to infectious etiology, in the patient with known history of HIV. Patient was found to have high titers of chlamydia pneumoniae, fungal serology was negative. #2. History of recent travel to [place], additional testing is in progress to rule out possibility of cocciodiosis #3. Maculopapular rash #4. History of immunodeficiency virus with his last HIV viral load undetectable, CD4 count of 684 in August 2018 #5. Hypertension #6. Hyperlipidemia #7. Former smoker #8. Suspect COPD Plan: Follow-up chest x-ray has been reviewed showing patchy infiltrate in the right upper lobe with a nodular pattern, and subsegmental changes involving the lingular segment of the left upper lobe, no pleural effusion or pneumothorax. Clinically patient continues to improve, some residual cough, no significant congestion, no pleurisy, no fever or chills, from pulmonary perspective he stable, he is tolerating ambulation, he is on room air, he is requesting to go home, he is stable for discharge home today from pulmonary perspective on the ten-day course of oral Zithromax per ID service recommendations, he will need follow-up in the office in 7-10 days. I performed a history & physical examination of the patient and discussed their management with my nurse practitioner, Radha Landry. I reviewed the nurse practitioner's note and agree with the documented findings and plan of care. Lung sounds are positive for diffuse wheezes throughout the lung salas. The findings and the impression was discussed with the patient. I attest to the do cumentation by the nurse practitioner. Time with Patient: Less than 30
--- NOTE | 2018-11-16 12:25 | P.DS ---
Providers Date of admission: 11/12/18 13:41 Attending physician: Eleanor Aquino DO Consults: 11/12/18 16:02 Consult Physician Routine Consulting Provider: Irina Zarco Consult Reason/Comments: pneumonia Do you want consulting provider notified?: Yes Consult Physician Routine Consulting Provider: Juan Mathur Consult Reason/Comments: pneumonia, HIV Do you want consulting provider notified?: Yes, Notify in am Primary care physician: [facility] Course: Diagnoses upon discharge: 1. Acute dyspnea secondary to large lingular consolidation 2. Pneumonia, unspecified organism 3. Maculopapular rash 4. History of HIV 5. Essential hypertension 6. Hyperlipidemia 7. Suspected COPD without exacerbation 8. Tobacco use without evidence of withdrawal HPI/hospital course and treatment: Patient is a 63-year-old male with a past medical history of hypertension, dyslipidemia, prostate enlargement, and HIV with last HIV viral load undetectable, CD4 count 684 in August 2018 who presented to the emergency department with complaints of cough. In the ER he underwent an extensive evaluation. On arrival his temperature was 102.2 and he was tachycardic with heart rate of 109. Blood pressure was elevated at 170/93. Approximately 30 minutes after admission his fever spiked to 104.2. Initial laboratory analysis was essentially unremarkable. Urinalysis was negative. His chest x-ray showed a left perihilar pneumonia along with a pleural reflection along the right apex that may represent a 10-15% pneumothorax. In the ER he was given a dose of Zithromax, Rocephin, Solu-Medrol, and Bactrim. He was admitted for further workup of his pneumonia with sepsis. He reports that in the last month he did take a train trip to the [facility]. He developed acute otitis media affecting the right ear that moved the left. At that point in time he was prescribed an antibiotic and his symptoms resolved. He reports that his HIV medication was last changed approximately one year ago. He reports being compliant with his medication. He Developed a dry cough 6 days prior to admission, was seen at [facility] and prescribed amoxicillin, he then developed a rash approximate 2 days later. He was continued on Zithromax and Rocephin after admission. Pulmonary and Dr. Mathur were consulted. Repeat CXR ruled out PTX. On the morning after admission his shortness of breath, wheezing and rash were worse. He was started on solumedrol. He underwent CT chest which showed Lingular and RML pneumonia. ID was concerned about coccidiomycosis and fluconazole was added. He was evaluated by infectious disease, antibiotics were started with Rocephin and Zithromax, fluconazole was later added. Legionella urine antigen was requested.possibility of psittacosis is considered and serology is requested He was also evaluated by pulmonology. He continued to clinically improve. By the time of discharge he is afebrile with no significant symptoms except for occasional dry cough. He will be discharged home on 10 days of oral Zithromax and to follow-up with PCP, pulmonology and infectious disease as an outpatient. Patient Condition at Discharge: Stable Plan - Discharge Summary Discharge Rx Participant: No New Discharge Prescriptions: New Azithromycin [Zithromax] 500 mg PO DAILY #10 tab No Action Pravastatin Sodium [Pravachol] 20 mg PO HS Fenofibrate [Tricor] 54 mg PO HS Ergocalciferol [Vitamin D2] 50,000 unit PO MO amLODIPine [Norvasc] 10 mg PO DAILY Escitalopram [Lexapro] 10 mg PO DAILY Bictegrav/Emtricit/Tenofov Ala [Biktarvy 50-200-25 mg Tablet] 1 each PO DAILY Discharge Medication List Fenofibrate [Tricor] 54 mg PO HS 12/03/14 [History] Pravastatin Sodium [Pravachol] 20 mg PO HS 12/03/14 [History] Ergocalciferol [Vitamin D2] 50,000 unit PO MO 08/09/16 [History] amLODIPine [Norvasc] 10 mg PO DAILY 04/12/18 [History] Escitalopram [Lexapro] 10 mg PO DAILY 11/12/18 [History] Bictegrav/Emtricit/Tenofov Ala [Biktarvy 50-200-25 mg Tablet] 1 each PO DAILY 11/13/18 [History] Azithromycin [Zithromax] 500 mg PO DAILY #10 tab 11/16/18 [Rx] Follow up Appointment(s)/Referral(s): Jamin Rey MD [STAFF PHYSICIAN] - 2 Weeks Karthikeyan Mathur DO [REFERRING] - 1-2 days Discharge Disposition: HOME SELF-CARE
[2018-11-16] MEDS: AZITHROMYCIN 500 MG TAB PO SCH (13:01)
--- NOTE | 2018-11-17 00:09 | P.PN ---
Subjective Progress Note Date: 11/17/18 This is a 63-year-old male well nontidal D service due to underlying history of HIV last seen in the office in August of this year and managed with Biktarvy 50-200-25 mg daily. Patient gives history of traveling by train from [place] to [facility], [facility] [place] and then return home 3 weeks ago. Patient did sightseeing and hiking at the various stops. While he was in [place] he developed a severe right sided ear infection was unable to eat or drink for 3 days. When he arrived in [place] he went to the clinic and was provided an antibiotic for a 10 day course which she completed once he received reached home. He states the infection traveled to his left ear and then finally healed. Shortly after that he developed cough that is nonproductive but constant, shortness of breath, fevers. He initially went to [employer] on November 09 and was sent home without treatment and no new medications. He states he then spent 2 days and bad as he had high fevers and was extremely weak. He then came into [facility] emergency center on November 10. Chest x-ray, Influenza A and B and WBC were normal and patient received steroids and Benadryl, diagnosed with viral syndrome, viral exanthem and was discharged home. By that time, patient had developed a rash that started on his back and chest and then spread to his arms and is now spreading to his thighs. He denies any itchiness. He has also had sun exposure on the weekend causing redness to his face. Unfortunately, patient continued to have fever or cough, shortness of breath with generalized weakness and malaise, rash and came back into [facility] emergency center for evaluation on November 12. Temperature at that time was 104.2, he was tachycardic, blood pressure was on the low side at 91/53. White count was again normal, lactic acid 1.8. Urinalysis showed a small amount of blood. Initial chest x- ray revealed suspected left perihilar mass or pneumonia. Pleural reflection along the right apex. Although this may represent a small pneumothorax. Recommend a repeat frontal view and removal of any superficial dressing. Correlate for right-sided chest pain. Repeat chest x-ray this morning reveals no active cardiopulmonary disease. Normal heart. No pneumothorax. Patient is scheduled for CAT scan of the chest today and consult with Dr. Rey. Patient is currently on azithromycin and ceftriaxone. Blood cultures status received. Cytomegalovirus, EBV and Legionella pending. 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 There is a cat and a dog in the house. He denies any animal exposures during his recent travels. Patient previously worked at [facility] and denies any employment with exposure to toxic agents. He denies any unusual hobbies. 11/14/2018 patient is feeling somewhat better today. His fevers have started to improve. He is slightly less short of breath and is wheezing less. He was able to get some rest last night. He denies other new acute symptoms and noticed the rash is definitely improved. 11/15/2018 patient has had further improvement of his status. He'll let short of breath still has some dryness to his throat and voice is not quite completely recovered but his fever has resolved shoulder resolved definitely feels better. 11/16/2018 the patient is feeling considerably better. Less short of breath still has some wheezing but denies other acute new symptoms. No fever or chills rigors have all improved rash is resolved. Ray for discharge to home. Objective - Vital Signs Vital signs: Vital Signs Temp 97.6 F 11/16/18 07:00 Pulse 74 11/16/18 08:25 Resp 16 11/16/18 07:00 BP 135/83 11/16/18 07:00 Pulse Ox 95 11/16/18 07:00 Intake & Output 11/16/18 11/16/18 11/17/18 06:59 18:59 06:59 Other: Voiding Method Toilet # Voids 2 - Exam Gen: This is a 63-year-old male. He is sitting in a recliner and appears to be in mild distress. Frequent coughing and shortness of breath noted. HEENT: Head is atraumatic, normocephalic. Pupils equal, round. Sclerae is anicteric. Conjunctiva pink. Mucous members of the mouth are moist. Oropharynx without erythema or edema. NECK: Supple. No JVD. No lymphadenopathy. No thyromegaly. LUNGS: The extensive wheezing that was noticed yesterday has improved bilaterally. Scattered expiratory wheezes are noted he does still have some egophony in the posterior mid left zone HEART: Regular rate and rhythm. No murmur. ABDOMEN: Soft. Bowel sounds are present. No masses. No tenderness. EXTREMITIES: No pedal edema bilaterally. No calf tenderness. Dorsalis pedis +1 bilaterally. SKIN: Maculopapular rash with coalescence mostly to the, upper chest. Mild involvement of bilateral arms and slight involvement of the upper thighs NEUROLOGICAL: Patient is awake, alert and oriented x3. - Labs CBC & Chem 7: 11/14/18 08:13 11/14/18 08:13 Labs: Abnormal Lab Results - Last 24 Hours (Table) 11/16/18 11/16/18 Range/Units 06:47 11:00 POC Glucose (mg/dL) 184 H 185 H (75-99) mg/dL Microbiology - Last 24 Hours (Table) 11/12/18 11:02 Blood Culture - Preliminary Blood No Growth after 96 hours Laboratory Results WBC 10.3 k/uL (3.8-10.6) 11/14/18 08:13 RBC 4.14 m/uL (4.30-5.90) L 11/14/18 08:13 Hgb 12.3 gm/dL (13.0-17.5) L 11/14/18 08:13 Hct 37.1 % (39.0-53.0) L 11/14/18 08:13 MCV 89.6 fL (80.0-100.0) 11/14/18 08:13 MCH 29.8 pg (25.0-35.0) 11/14/18 08:13 MCHC 33.3 g/dL (31.0-37.0) 11/14/18 08:13 RDW 13.4 % (11.5-15.5) 11/14/18 08:13 Plt Count 165 k/uL (150-450) 11/14/18 08:13 Neutrophils % 89 % 11/13/18 08:26 Lymphocytes % 6 % 11/13/18 08:26 Monocytes % 3 % 11/13/18 08:26 Eosinophils % 1 % 11/13/18 08:26 Basophils % 0 % 11/13/18 08:26 Neutrophils # 9.4 k/uL (1.3-7.7) H 11/13/18 08:26 Lymphocytes # 0.7 k/uL (1.0-4.8) L 11/13/18 08:26 Monocytes # 0.3 k/uL (0-1.0) 11/13/18 08:26 Eosinophils # 0.1 k/uL (0-0.7) 11/13/18 08:26 Basophils # 0.0 k/uL (0-0.2) 11/13/18 08:26 Sodium 138 mmol/L (137-145) 11/14/18 08:13 Potassium 3.8 mmol/L (3.5-5.1) 11/14/18 08:13 Chloride 104 mmol/L (98-107) 11/14/18 08:13 Carbon Dioxide 24 mmol/L (22-30) 11/14/18 08:13 Anion Gap 10 mmol/L 11/14/18 08:13 BUN 13 mg/dL (9-20) 11/14/18 08:13 Creatinine 0.66 mg/dL (0.66-1.25) 11/14/18 08:13 Est GFR (CKD-EPI)AfAm >90 (>60 ml/min/1.73 sqM) 11/14/18 08:13 Est GFR (CKD-EPI)NonAf >90 (>60 ml/min/1.73 sqM) 11/14/18 08:13 Glucose 188 mg/dL (74-99) H 11/14/18 08:13 POC Glucose (mg/dL) 185 mg/dL (75-99) H 11/16/18 11:00 POC Glu [employer] Gina 11/16/18 11:00 Plasma Lactic Acid Jero 1.8 mmol/L (0.7-2.0) 11/12/18 11:02 Calcium 8.2 mg/dL (8.4-10.2) L 11/14/18 08:13 Phosphorus 3.3 mg/dL (2.5-4.5) 11/13/18 08:26 Magnesium 2.0 mg/dL (1.6-2.3) 11/14/18 08:13 Total Bilirubin 0.3 mg/dL (0.2-1.3) 11/13/18 08:26 AST 47 U/L (17-59) 11/13/18 08:26 ALT 22 U/L (21-72) 11/13/18 08:26 Alkaline Phosphatase 48 U/L (38-126) 11/13/18 08:26 Lactate Dehydrogenase 586 U/L (313-618) 11/13/18 08:26 Total Protein 5.5 g/dL (6.3-8.2) L 11/13/18 08:26 Albumin 3.1 g/dL (3.5-5.0) L 11/13/18 08:26 Urine Color Yellow 11/12/18 12:30 Urine Appearance Clear (Clear) 11/12/18 12:30 Urine pH 5.5 (5.0-8.0) 11/12/18 12:30 Ur Specific [place] 1.019 (1.001-1.035) 11/12/18 12:30 Urine Protein Trace (Negative) H 11/12/18 12:30 Urine Glucose (UA) Negative (Negative) 11/12/18 12:30 Urine Ketones Negative (Negative) 11/12/18 12:30 Urine Blood Small (Negative) H 11/12/18 12:30 Urine Nitrite Negative (Negative) 11/12/18 12:30 Urine Bilirubin Negative (Negative) 11/12/18 12:30 Urine Urobilinogen <2.0 mg/dL (<2.0) 11/12/18 12:30 Ur Leukocyte Esterase Negative (Negative) 11/12/18 12:30 Urine RBC <1 /hpf (0-5) 11/12/18 12:30 Urine WBC <1 /hpf (0-5) 11/12/18 12:30 Ur Squamous Epith Cells <1 /hpf (0-4) 11/12/18 12:30 Urine Mucus Rare /hpf (None) H 11/12/18 12:30 C. pneumoniae IgG Ab >=1:512 titer (<1:64) H 11/13/18 15:40 C. pneumoniae IgM Ab <1:10 titer (<1:10) 11/13/18 15:40 C. trachomatis IgG Ab <1:64 titer (<1:64) 11/13/18 15:40 C. trachomatis IgM Ab <1:10 titer (<1:10) 11/13/18 15:40 C. psittaci IgG Ab <1:64 titer (<1:64) 11/13/18 15:40 C. psittaci IgM Ab <1:10 titer (<1:10) 11/13/18 15:40 CMV IgG Ab Reactive (Non-Reactive) H 11/14/18 08:13 CMV IgM Ab Non-Reactive (Non-Reactive) 11/14/18 08:13 EBV Capsid Ag IgG Ab >8.0 AI 11/13/18 08:26 EBV Capsid Ag IgG Intrp POSITIVE (NEGATIVE) H 11/13/18 08:26 EBV Capsid Ag IgM Ab 0.2 AI 11/13/18 08:26 EBV Capsid Ag IgM Intrp NEGATIVE (NEGATIVE) 11/13/18 08:26 EBV Early Antigen IgG 4.8 AI 11/13/18 08:26 EBV EA IgG Ab Interp POSITIVE (NEGATIVE) H 11/13/18 08:26 EBV Nuclear Ag IgG Ab >8.0 AI 11/13/18 08:26 EBV Nuc Ag IgG Interp POSITIVE (NEGATIVE) H 11/13/18 08:26 Urine Legionella Ag Not detected (Not detected) 11/13/18 11:00 Miscellaneous Test Beta D Glucan 11/13/18 08:26 Misc Test Result See comment 11/13/18 08:26 Microbiology 11/12/18 11:02 Blood Blood Culture - Preliminary No Growth after 96 hours Assessment and Plan (1) Fever Status: Acute Code(s): R50.9 - FEVER, UNSPECIFIED SNOMED Code(s): 618704235 (2) Rash Status: Acute Code(s): R21 - RASH AND OTHER NONSPECIFIC SKIN ERUPTION SNOMED Code(s): 102151248 (3) Pneumonia Narrative/Plan: As noted the patient was feeling well until his train trip to [place], [place] and then [place] before his return through [place] to [place]. The patient was exposed to many children several who appeared to be ill. His friends that he stayed with at the locations were not acutely ill. He did hike outside in [place] in the desert. He did spend time outside in both [place] as well as [place]. He did have a acute ear infection was treated with a course of azithromycin. He now is evidence by computed tomography scan of the distinct pneumonia. Antibiotic therapy with Rocephin and azithromycin is being utilized. There are the birds that they raise at the home and constantly the possibility of psittacosis is considered an serology is requested. The azithromycin is partly adequate for treatment. Legionella urinary antigens and also requested given the significant pneumonia in the rash that he developed it seems to be improving. Lastly serology for coccidiomycosis is requested and fluconazole intravenous will be added for now pending further results and his response to treatment. 11/14/2018 the patient is starting to feel somewhat better, fevers have started to improve and is somewhat less short of breath. With this we'll continue the current antimicrobial therapy. The multiple serologies are pending. Of note he has a high CD4 and intact overload for several years and the potential for pneumocystis is extremely low. 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 11/15/2018 the patient is feeling considerably better. Fevers have resolved. Shortness of breath is improved. Overall his marked improvement of his status with the current treatments. Laboratories reveal evidence of chlamydia pneumoniae high titer highly suggestive of recent infection. At this time no evidence of coccidial mycoses fluconazole was discontinued. Patient will be discharged on a 10 day course of oral azithromycin to complete the treatment of his chlamydia pneumonia infection. Follow up in the office. 11/16/2018 the patient has had further improvement. He is ready for discharge home today. This is been discussed with the pulmonary critical care group. He will go home on oral azithromycin 500 mg a day for 10 days given his chlamydial pneumoniae infection with pneumonia. Continue his routine HIV medications. Follow up with ID at the end of his antibiotic therapy. Tapering dose of steroids as per pulmonary. Status: Acute Code(s): J18.9 - PNEUMONIA, UNSPECIFIED ORGANISM SNOMED Code(s): 465559613
== END 2018-11-16 14:02 | disposition home or self-care (01) | DRG 871 ==
LOC: EC 09:41 → SUPCPDRO 09:41 → 4SSUR 13:41
PROVIDERS: ADMIT Internal Medicine; ATTEND Internal Medicine
DX: A41.9 Sepsis, unspecified organism (principal); J18.9 Pneumonia, unspecified organism; J93.9 Pneumothorax, unspecified; E78.5 Hyperlipidemia, unspecified; E86.0 Dehydration; H66.91 Otitis media, unspecified, right ear; I10 Essential (primary) hypertension; B09 Unspecified viral infection characterized by skin and mucous membrane lesions; L30.9 Dermatitis, unspecified; N40.0 Benign prostatic hyperplasia without lower urinary tract symptoms; T38.0X5A Adverse effect of glucocorticoids and synthetic analogues, initial encounter; R73.9 Hyperglycemia, unspecified; Z72.0 Tobacco use; Z21 Asymptomatic human immunodeficiency virus [HIV] infection status; Z79.899 Other long term (current) drug therapy; Z80.0 Family history of malignant neoplasm of digestive organs; Z82.3 Family history of stroke; Z88.4 Allergy status to anesthetic agent; J44.9 Chronic obstructive pulmonary disease, unspecified
CPT/HCPCS: 36415; 71045; 71046; 71250; 80048; 80053; 81001; 83605; 83615; 83735; 84100; 85025; 85027; 86631; 86632; 86644; 86645; 86663; 86664; 86665; 87040; 87449; 94640; 94760; 96361; 96365; 96366; 96375; 99284

== ENCOUNTER → 2018-12-13 | Outpatient (CLI) | payer MEDICAID ==
[2018-12-13 07:53] LABS: Basophils % (A) 1 %; Eosinophils # (A) 0.3 k/uL (0-0.7); Eosinophils % (A) 8 %; HCT 45.5 % (39.0-53.0); Lymphocytes # (A) 1.5 k/uL (1.0-4.8); Lymphocytes % (A) 36 %; MCH 31.1 pg (25.0-35.0); MCV 91.5 fL (80.0-100.0); Mean Platelet Volume 7.9; Monocytes # (A) 0.4 k/uL (0-1.0); Monocytes % (A) 10 %; Neutrophils # (A) 1.8 k/uL (1.3-7.7); Neutrophils % (A) 43 %; Platelet Count 186 k/uL (150-450); RBC 4.97 m/uL (4.30-5.90); RDW 13.1 % (11.5-15.5); WBC 4.2 k/uL (3.8-10.6)
[2018-12-13 07:56] LABS: HGB 15.5 gm/dL (13.0-17.5)
[2018-12-13 12:09] LABS: African American GFR (CKD) 75.2 (60.0-200.0); Albumin 4.3 g/dL (3.80-4.90); Albumin/Globulin Ratio 2.05 (1.60-3.17); BUN/Creat Ratio 10.83 Ratio (12.00-20.00); Calcium 8.6 mg/dL (8.7-10.3); Globulin 2.1 g/dL (1.6-3.3); LDL Cholesterol,Calculated 156.6 mg/dL (0.0-131.0); Potassium 3.9 mmol/L (3.5-5.5); Total Bilirubin 0.4 mg/dL (0.3-1.2); Total Protein 6.4 g/dL (6.2-8.2); VLDL Calculation 30.4 mg/dL (5.00-40.00)
[2018-12-14 10:12] LABS: T4/T8 Ratio (CD4:CD8) 1.1 (1.0-3.7)
== END | disposition home or self-care (01) ==
LOC: LABWHC1 06:53
PROVIDERS: ATTEND Internal Medicine Infectious Disease
DX: B20 Human immunodeficiency virus [HIV] disease (principal); E78.9 Disorder of lipoprotein metabolism, unspecified
CPT/HCPCS: 36415; 80053; 80061; 85025; 86360; 87536

== ENCOUNTER → 2019-02-13 | Outpatient (CLI) | payer MEDICAID ==
[2019-02-13 14:25] VITALS: BP 131/81; PULSE 62; RESP 18
--- NOTE | 2019-02-13 15:48 | P.PAINPG ---
Subjective Progress Note Date: 02/13/19 This is a 63-year-old male who returns to clinic to reestablish care. Past he has received lumbar medial branch blocks followed by a lumbar RFA on the left side. Today he reports the same pain however on the right side, he is interested in getting RFA of the right side. 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 Note he has seen a emergency room specialist and a primary care physician for symptoms consistent with formication, he states that it feels like bugs are crawling within his arms. 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 Objective - Vital Signs Vital signs: Vital Signs Temp Pulse 62 02/13/19 14:18 Resp 18 02/13/19 14:18 BP 131/81 02/13/19 14:18 Pulse Ox 96 02/13/19 14:18 Intake & Output 02/12/19 02/13/19 02/13/19 18:59 06:59 18:59 Weight 72.575 kg - Exam Vital Signs: Reviewed in EMR GENERAL: Well appearing, in no acute distress, PSYCH: Mood and affect is appropriate. Awake, alert, and oriented SKIN: Skin color, texture, turgor normal, no rashes or lesions HEENT: Normocephalic, atraumatic. EOM intact CV: No pedal edema RESP: Respirations are unlabored, no audible wheezing GI: Abdomen non-distended MUSCULOSKELETAL: Bilateral upper and lower extremity strength is normal and symmetric. No atrophy or tone abnormalities are noted. Lumbar spine: Mild to moderate pain, at lumbar paraspinal muscles. Positive facet loading Buttocks: No pain to palpation over the PSIS, Extremities: Peripheral joint ROM is full and pain free without obvious instability or laxity in all four extremities. No edema or skin discolorations noted. Gait: Gait is anantalgic NEUR: No loss of sensation is noted. Cranial nerves are grossly intact. Assessment and Plan Assessment: Assessment: 1. Lumbar spondylosis 2. 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 HIV Plan: 1. Explanation: I explained to him that I thought that gabapentin was unlikely to help with his formication, however I would be willing to give a trial of this, as it may also help with his back pain. 2. Opioid agreement: The agreement was placed given the prescription of gabapentin 3. Counseling: He was instructed to stay active 4. Procedures: Lumbar medial branch blocks on the right side as he has not had right-sided medial branch blocks 5. Consultations: None 6. Investigations: Images reviewed 7. Medications: Gabapentin 300 3 times a day with titration schedule provided to patient 8. Disposition: For his medial branch blocks , PQRS Measure Charge Sheet Measure #226: Tobacco Use: Screen & Cessation Intervention: Pt not a tobacco user Measure #111: Pneumonia Vaccination: Pneumococcal vaccine administered or previously received Measure #47: Advance Care Plan: Advance care planning discussed & documented, pt chose/unable to give Measure #412: Opioid Treatment Agreement: No documentation of signed opioid treatment agreement Measure #408: Opioid Therapy Follow-up Evaluation: Patient had NO f/u eval minimum every 3 months during opioid therapy Measure #131: Pain Assessment & Follow-up: Pain positive & plan documented, Follow-up scheduled Measure #431: Unhealthy Alcohol Use Preventative Care & Scrn: Patient not identified as an unhealthy alcohol user PQRS Narrative: Smoking Status Former smoker Blood Pressure 131/81 Pain Intensity [Lower Back] 7 Scale Used Numeric (1 - 10) Hx Alcohol Use (MH) Yes: social Home Medications: Ambulatory Orders Fenofibrate [Tricor] 54 mg PO QAM 12/03/14 Pravastatin Sodium [Pravachol] 20 mg PO QAM 12/03/14 Ergocalciferol [Vitamin D2] 50,000 unit PO MO 08/09/16 amLODIPine [Norvasc] 10 mg PO QAM 04/12/18 Escitalopram [Lexapro] 10 mg PO QAM 11/12/18 Bictegrav/Emtricit/Tenofov Ala [Biktarvy 50-200-25 mg Tablet] 1 each PO QAM 11/13/18 HYDROcodone/APAP 5-325MG [Amboy 5-325] 1 tab PO Q6H PRN 02/12/19 Controlled Substance Measures - Controlled Substance Measures Is patient prescribed a controlled substance at discharge?: Yes When asked, does pt state using other controlled substances?: No If prescribed controlled substance>3 days was MAPS reviewed?: Yes
== END ==
LOC: PNWHC3 13:46
PROVIDERS: ATTEND Student in an Organized Health Care Education/Training Program
DX: M47.816 Spondylosis without myelopathy or radiculopathy, lumbar region (principal); L29.9 Pruritus, unspecified; G62.9 Polyneuropathy, unspecified; B20 Human immunodeficiency virus [HIV] disease; R20.2 Paresthesia of skin; Z87.891 Personal history of nicotine dependence; Z79.899 Other long term (current) drug therapy; Z79.891 Long term (current) use of opiate analgesic
CPT/HCPCS: 99211

== ENCOUNTER 2019-02-15 06:32 | Day surgery (SDC) | payer MEDICAID ==
[~2019-02-15 06:32] MED LIST changes: +LACTATED RINGERS 1,000 ML IV SCH; -SODIUM CHLORIDE 0.9% 500 ML 500 ML IV SCH
[2019-02-15 06:51] VITALS: TEMP 97.6
[2019-02-15] MEDS ORDERED: LIDOCAINE 1% 20 ML VIAL (10MG/ML) FOR IV START INTRADERMA ONE (06:52)
--- NOTE | 2019-02-15 08:01 | P.PCN ---
Date of Procedure: 02/15/19 Procedure(s) Performed: PREOPERATIVE DIAGNOSIS : Lumbar spondylosis with Facet Arthropathy without myelopathy POSTOPERATIVE DIAGNOSIS: same PROCEDURE: Diagnostic lumbar medial branch block with fluoroscopy at right L3, L4, dorsal rami of L5 ANESTHESIA: Local anesthetic; initially the plan was to go without sedation, however his blood pressure was high and he received 1 mg of midazolam, moderate sedation Surgeon: Angelina Galan MD PROCEDURE INDICATION: By spondylosis PROCEDURE DESCRIPTION: The patient was seen and identified in the preop holding area , risks and benefits and possible complications of the procedure and alternative were discussed with the patient, and the patient agreed to proceed with the procedure and signed the consent IV was started and vital signs monitored during the procedure and fluoroscopy was used to maximize the benefit and accuracy of the needle placement, and sedation was given to decrease patient anxiety, patient was taken to the procedure room and placed in prone position vital signs monitored in the back prepped. Under strict sterile technique using a right oblique fluoroscopy ,the junction of the transverse process and the superior articulating process of the right L3- 4 , L4- 5, and L5-S1 vertebra which corresponding to the fluoroscopy image of the eye of the Morris dog on the block side for the medial branches and subsequently , after local infiltration of skin and subcutaneous tissues with lidocaine 1% one mL at each level ,then one 25-gauge Quincke-type needles was placed at the junction of the base of the transverse process and the superior articular process at the appropriate level, and the needle was advanced until the periosteum contacted, needle placement confirmed with AP and oblique view and after appropriate needle placement confirmed, and after negative aspiration, 0.5 mL of Roprcaine 0.5% was injected at each level and the needle subsequently removed. Images were saved to radiology. At the end of the procedure and the needles removed and a bandage applied after the skin was cleaned the cleaning solution patient taken to recovery room in stable condition and monitors in the recovery room for 20-30 minutes and d ischarged home in stable condition after discharge criteria met and patient will have a repeat diagnostic block if this block provided good relief. EBL: Minimal COMPLICATION: None. Comments: Patient's blood pressure was elevated at 197 systolic, given this finding he was given 1 mg of midazolam and 10 mg of hydralazine.
[2019-02-15] MEDS ORDERED: IV FLUID CONTINUATION 1,000 ML IV ONE (08:02)
[2019-02-15 08:12] VITALS: RESP 16
[2019-02-15] MEDS ORDERED: KETOROLAC 30 MG/ML 1 ML VIAL IVP ONE (08:15)
[2019-02-15 08:36] VITALS: BP 133/85; PULSE 69
--- NOTE | 2019-02-15 09:19 | FL ---
EXAMINATION TYPE: FL guided pain mgmt statistic DATE OF EXAM: 02/15/2019 HISTORY: Flouroscopy time 8 seconds of fluoroscopy provided. IMPRESSION: 1. Fluoroscopy time.
== END 2019-02-15 08:55 | disposition home or self-care (01) ==
LOC: ORPAIN 06:32
PROVIDERS: ATTEND Student in an Organized Health Care Education/Training Program
DX: M47.816 Spondylosis without myelopathy or radiculopathy, lumbar region (principal); L29.8 Other pruritus; B20 Human immunodeficiency virus [HIV] disease; Z87.891 Personal history of nicotine dependence; Z79.899 Other long term (current) drug therapy
CPT/HCPCS: 64493; 64494; J2250; J1885; 99152

== ENCOUNTER 2019-03-01 07:33 | Day surgery (SDC) | payer MEDICAID ==
[2019-02-28 09:27] VITALS: BMI 25.0
[2019-03-01 08:22] VITALS: RESP 16; TEMP 97
[2019-03-01] MEDS ORDERED: LIDOCAINE 1% 20 ML VIAL (10MG/ML) FOR IV START INTRADERMA ONE (08:30)
--- NOTE | 2019-03-01 09:22 | P.PCN ---
Date of Procedure: 03/01/19 Procedure(s) Performed: PREOPERATIVE DIAGNOSIS : 1- Lumbar spondylosis with Facet Arthropathy without myelopathy . POSTOPERATIVE DIAGNOSIS: 1- Lumbar spondylosis with Facet Arthropathy without myelopathy . PROCEDURE: Diagnostic bilateral L3 , L4 , and L5 medial branch block under fluoroscopy guidance(fluoroscopy images available in the radiology Department ) ANESTHESIA: moderate sedation with intravenous Versed 2 mg and Fentanyl 50 mcg. EBL: Minimal COMPLICATION: None. IV FLUIDS: 100 mL of normal saline. PROCEDURE INDICATION: Chronic low back pain secondary to Facet arthropathy unresponsive to conservative treatment. PROCEDURE DESCRIPTION: the patient was seen and identified in the preop holding area , risks and benefits and possible complications of the procedure and alternative were discussed with the patient, and the patient agreed to proceed with the procedure and signed the consent IV was started and vital signs monitored during the procedure and fluoroscopy was used to maximize the benefit and accuracy of the needle placement, and sedation was given to decrease patient anxiety, patient was taken to the procedure room and placed in prone position vital signs monitored in the back prepped with chlorhexidine X3 then under strict sterile technique using a right oblique fluoroscopy ,the junction of the transverse process and the superior articulating process of the right L3 , L4 , and L5 vertebra which corresponding to the fluoroscopy image of the eye of the Morris dog on the block side for the medial branches and subsequently , after local infiltration of skin and subcu tissuies with Ropivacaine 0.5 % , one mL at each level ,then 25-gauge Quincke-type needles , 3 needle was used , each one of them placed at the junction of the base of the transverse process and the superior articular process at the appropriate level, and the needle was advanced until the periosteum contacted, needle placement confirmed with AP oblique and lateral view and after appropriate needle placement confirmed, and after negative aspiration for heme and CSF and there was no paresthesia 1-1/2 mL of Ropivacaine 0.5% mixed with 20 mg Depo-Medrol , then half mL injected at each level after negative aspiration the needle subsequently removed intact. At the end of the procedure and the needles removed and a bandage applied after the skin was cleaned the cleaning solution patient taken to recovery room in stable condition and monitors in the recovery room for 20-30 minutes and discharged home in stable condition after discharge criteria met and patient will follow up with the pain clinic in 2-4 weeks
[2019-03-01 09:48] VITALS: BP 147/97; PULSE 61
--- NOTE | 2019-03-01 11:29 | FL ---
Fluoroscopy HISTORY: Pain 9 seconds fluoroscopy time supplied to the referring clinician. 2 intraoperative C-arm images docume nt the procedure. See dictated report from anesthesia.
== END 2019-03-01 09:56 | disposition home or self-care (01) ==
LOC: ORPAIN 07:33
PROVIDERS: ATTEND Specialist
DX: G89.29 Other chronic pain (principal); M47.816 Spondylosis without myelopathy or radiculopathy, lumbar region; I10 Essential (primary) hypertension
CPT/HCPCS: 64493; 64494; J2250; J1030; J3010

== ENCOUNTER → 2019-03-15 | Outpatient (CLI) | payer MEDICAID ==
[2019-03-15 11:56] VITALS: BP 161/106; PULSE 72; RESP 18
--- NOTE | 2019-03-15 15:02 | P.PAINPG ---
Subjective Progress Note Date: 03/15/19 This is a 63-year-old male who returns to clinic to following right sided lumbar medial branch blocks 2. Today he reports excellent relief from these 2 procedures, however the pain has returned now. In the past, he has undergone left-sided lumbar radiofrequency ablation with excellent benefit. He would like to proceed with radiofrequency ablation of the right side. Note he has seen a credit advisor and a primary care physician for symptoms consistent with formication, he states that it feels like bugs are crawling within his arm. At his last visit, we started him on gabapentin he reports that this significantly helped his symptoms. We also prescribed him Blanchester, which was last filled in June for 45 tablets, which she uses infrequently. He is requesting a refill today to get him to the procedure. I will give him a prescription for Blanchester 5/325 30 tablets, with no refills. I also informed him that we will no longer be prescribing narcotics following the procedure. He is amenable to this. Review of systems is negative for chest pain, shortness of breath, new onset weakness, numbness/tingling, abdominal pain, malaise, fever, night sweats, chills, homicidal or suicidal ideation, or bowel or bladder incontinence. Objective - Exam Vital Signs: Reviewed in EMR, of note his blood pressure is 161/106 today GENERAL: Well appearing, in no acute distress, PSYCH: Mood and affect is appropriate. Awake, alert, and oriented SKIN: Skin color, texture, turgor normal, no rashes or lesions HEENT: Normocephalic, atraumatic. EOM intact CV: No pedal edema RESP: Respirations are unlabored, no audible wheezing GI: Abdomen non-distended MUSCULOSKELETAL: Bilateral lower extremity strength is normal and symmetric. No atrophy or tone abnormalities are noted. Lumbar spine: Mild to moderate tenderness to palpation at lumbar paraspinal muscles in the right side. Positive facet loading Buttocks: No pain to palpation over the PSIS, Extremities: Peripheral joint ROM is full and pain free without obvious instability or laxity in all four extremities. No edema or skin discolorations noted. NEUR: No loss of sensation is noted. Cranial nerves are grossly intact. Assessment and Plan Assessment: Assessment: 1. Lumbar spondylosis 2. 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 HIV 4. Hypertension Plan: 1. Explanation: None 2. Opioid agreement: The agreement was signed given the prescription of gabapentin and Blanchester 3. Counseling: He was instructed to stay active, and counseling on the importance of exercise. He was instructed to perform lumbar stretching and strengthening exercises following his radio frequency ablation. 4. Procedures: Will schedule right sided lumbar radiofrequency ablation of L3, L4, L5 medial branches 5. Consultations: He was instructed to follow up with his primary care physician regarding hypertension 6. Investigations: Images reviewed 7. Medications: Blanchester 09/[birth year]/2407[birth year]1929 tablets given with no refills. Gabapentin was not refilled today as he does not need it. 8. Disposition: For above-mentioned procedure PQRS Measure Charge Sheet Measure #130: Documentation of Current Meds in Medical Chart: Patient's medications documented in chart Measure #226: Tobacco Use: Screen & Cessation Intervention: Pt not a tobacco user Measure #111: Pneumonia Vaccination: Pneumococcal vaccine NOT administered or previously given Measure #47: Advance Care Plan: Advance care planning discussed & documented, pt chose/unable to give Measure #412: Opioid Treatment Agreement: Documented signed opioid trtmnt agreemnt min once during opioid trtmnt Measure #408: Opioid Therapy Follow-up Evaluation: Patient had f/u eval minimum every 3 months during opioid therapy Measure #317: Preventitive Care & Scrn High Bld Press & F/U: Pre-hypertensive or hypertensive BP documented, pt will f/u with PCP Measure #128: Body Mass Index (BMI) Screening & Follow-up: BMI documented within normal parameters Measure #131: Pain Assessment & Follow-up: Pain positive & plan documented, Follow-up scheduled Measure #431: Unhealthy Alcohol Use Preventative Care & Scrn: Patient not identified as an unhealthy alcohol user PQRS Narrative: Smoking Status Former smoker Pain Intensity [Right Back] 2 Scale Used Numeric (1 - 10) Hx Alcohol Use (MH) Yes: social Home Medications: Ambulatory Orders Fenofibrate [Tricor] 54 mg PO QAM 12/03/14 Pravastatin Sodium [Pravachol] 20 mg PO QAM 12/03/14 Ergocalciferol [Vitamin D2] 50,000 unit PO MO 08/09/16 Escitalopram [Lexapro] 10 mg PO QAM 11/12/18 Bictegrav/Emtricit/Tenofov Ala [Biktarvy 50-200-25 mg Tablet] 1 each PO QAM 11/13/18 HYDROcodone/APAP 5-325MG [Blanchester 5-325] 1 tab PO Q6H PRN 02/12/19 Losartan [Cozaar] 50 mg PO QAM 03/08/19 Controlled Substance Measures - Controlled Substance Measures Is patient prescribed a controlled substance at discharge?: Yes When asked, does pt state using other controlled substances?: No If prescribed controlled substance>3 days was MAPS reviewed?: Yes If Rx opioid, was Start Talking consent form obtained?: Yes If opioid is for acute pain is fill amount 7 days or less?: No Was information provided regarding opioid addiction?: Yes
== END | disposition home or self-care (01) ==
LOC: PNWHC3 11:40
PROVIDERS: ATTEND Anesthesiology
DX: M47.816 Spondylosis without myelopathy or radiculopathy, lumbar region (principal); R20.2 Paresthesia of skin; L29.9 Pruritus, unspecified; G62.9 Polyneuropathy, unspecified; B20 Human immunodeficiency virus [HIV] disease; I10 Essential (primary) hypertension; Z87.891 Personal history of nicotine dependence; Z98.890 Other specified postprocedural states; Z79.899 Other long term (current) drug therapy
CPT/HCPCS: 80307; 99211; G0482

== ENCOUNTER 2019-03-20 06:44 | Day surgery (SDC) | payer MEDICAID ==
[2019-03-20 08:11] VITALS: RESP 14; TEMP 97.5
[2019-03-20] MEDS ORDERED: LIDOCAINE 1% 20 ML VIAL (10MG/ML) FOR IV START INTRADERMA ONE (08:21)
--- NOTE | 2019-03-20 09:07 | P.PCN ---
Date of Procedure: 03/20/19 Procedure(s) Performed: OPERATION: Radiofrequency ablation of the medial branch lumbar area at right side, L3 medial branch, L4 medial branch, and dorsal rami of 5 levels under fluoroscopic guidance. PREOPERATIVE DIAGNOSES: 1. Lumbar facet arthropathy. 2. Lumbar degenerative disc disease. POSTOPERATIVE DIAGNOSES: 1. Lumbar facet arthropathy. 2. Lumbar degenerative disc disease. COMPLICATIONS: None. PHYSICIAN: Angelina Galan MD ANESTHESIA: moderate sedation 2 mg of Versed, 50 g of fentanyl with local infiltration. CONDITION: Stable. INDICATION FOR THE PROCEDURE: This is 63-year-old male with a history of low back pain. Procedure, risks and benefits discussed with the patient who agreed with proceeding. Patient taken to the operating room, placed in prone position. All standard monitors applied to the patient. Then after induction of anesthesia, back prepped with Betadine 3 times. Then under fluoroscopic guidance we used 1% lidocaine 5 mL for skin and subcutaneous tissue infiltrations, Then after that, 18-gauge radiofrequency active-tip needles, 3 needles used, each one of them placed at the junction of the base of the transverse process and the superior articulating process of the right side at, L3-4, L4-5 and L5-S1 levels. Needle placement confirmed with AP and oblique and lateral views. Then after appropriate needle placement confirmed, we checked for the motor stimulation at 2.5 v, which was positive for localized contractions in the lumbar area and ther e were no contractions in the lower extremities. Then 1 cc of 4% lidocaine was injected into each needle. Then after that, the radiofrequency done at 80 degrees Centigrade for 90 seconds at each level. The needles were subsequently removed. Patient tolerated the procedure well without any complication and will follow up with the pain clinic in few weeks. Images were saved to radiology.
[2019-03-20] MEDS ORDERED: IV FLUID CONTINUATION 1,000 ML IV ONE (09:28)
[2019-03-20 09:32] VITALS: BP 150/94; PULSE 61
--- NOTE | 2019-03-20 10:29 | FL ---
FLUOROSCOPY 15 of fluoroscopy time were utilized during right lumbar radiofrequency ablation. 4 images document t he procedure.
== END 2019-03-20 10:16 | disposition home or self-care (01) ==
LOC: ORPAIN 06:44
PROVIDERS: ATTEND Student in an Organized Health Care Education/Training Program
DX: M47.816 Spondylosis without myelopathy or radiculopathy, lumbar region (principal); M51.36 Other intervertebral disc degeneration, lumbar region; B20 Human immunodeficiency virus [HIV] disease; I10 Essential (primary) hypertension; L29.8 Other pruritus; R20.2 Paresthesia of skin; Z87.891 Personal history of nicotine dependence; Z79.899 Other long term (current) drug therapy
CPT/HCPCS: 64635; 64636 ×2; J2250; J3010; 99152

== ENCOUNTER → 2019-04-26 | Outpatient (CLI) | payer MEDICAID ==
[2019-04-26 13:44] VITALS: BP 186/107; PULSE 66; RESP 16
--- NOTE | 2019-05-01 12:04 | P.PAINPG ---
Subjective Progress Note Date: 04/26/19 This is a 63-year-old male who returns to clinic to following right sided lumbar RFA. Today he reports >50% relief from this procedure, pain is no longer sharp. Note he has seen a prints and drawings curator and a primary care physician for symptoms consistent with formication, he states that it feels like bugs are crawling within his arm. At his last visit, we started him on gabapentin he reports that this significantly helped his symptoms. We also prescribed him Tumtum, which he uses sparingly (30 tabs last 6-8 weeks). He denies side effects from the medications and the medications are allowing him to function. He us looking forward to residential in July 2019. Review of systems is negative for chest pain, shortness of breath, new onset weakness, numbness/tingling, abdominal pain, malaise, fever, night sweats, chills, homicidal or suicidal ideation, or bowel or bladder incontinence. He does report a dull headache, which might be due to his elevated BP. Objective - Exam Vital Signs: Reviewed in EMR, of note his blood pressure is 186/107 today GENERAL: Well appearing, in no acute distress, PSYCH: Mood and affect is appropriate. Awake, alert, and oriented SKIN: Skin color, texture, turgor normal, no rashes or lesions HEENT: Normocephalic, atraumatic. EOM intact CV: No pedal edema RESP: Respirations are unlabored, no audible wheezing GI: Abdomen non-distended MUSCULOSKELETAL: Bilateral lower extremity strength is normal and symmetric. No atrophy or tone abnormalities are noted. Lumbar spine: Mild to moderate tenderness to palpation at lumbar paraspinal muscles in the right side. Positive facet loading Buttocks: No pain to palpation over the PSIS, Extremities: Peripheral joint ROM is full and pain free without obvious instability or laxity in all four extremities. No edema or skin discolorations noted. NEUR: No loss of sensation is noted. Cranial nerves are grossly intact. Assessment and Plan Assessment: Assessment: 1. Lumbar spondylosis 2. 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 HIV 4. Hypertension Plan: 1. Explanation: None 2. Opioid agreement: The agreement was signed given the prescription of gabapentin and Tumtum 3. Counseling: He was instructed to stay active, and counseling on the importance of exercise. He was instructed to perform lumbar stretching and strengthening exercises following his radio frequency ablation. 4. Procedures: None 5. Consultations: He was sent to ED due to elevated BP and headache 6. Investigations: none 7. Medications: Tumtum 5/325 30 tablets given with no refills. Gabapentin was not refilled today as he does not need it. Advised to take tylenol and motrin 8. Disposition: in 8 weeks for medication management. PQRS Measure Charge Sheet Measure #130: Documentation of Current Meds in Medical Chart: Patient's medications documented in chart Measure #226: Tobacco Use: Screen & Cessation Intervention: Pt not a tobacco user Measure #111: Pneumonia Vaccination: Pneumococcal vaccine administered or previously given Measure #47: Advance Care Plan: Advance care planning discussed & documented, pt chose/unable to give Measure #412: Opioid Treatment Agreement: Documented signed opioid trtmnt agreemnt min once during opioid trtmnt Measure #408: Opioid Therapy Follow-up Evaluation: Patient had f/u eval minimum every 3 months during opioid therapy Measure #317: Preventitive Care & Scrn High Bld Press & F/U: Pre-hypertensive or hypertensive BP documented, pt will f/u with PCP and in ED today Measure #128: Body Mass Index (BMI) Screening & Follow-up: BMI documented within normal parameters Measure #131: Pain Assessment & Follow-up: Pain positive & plan documented, Follow-up scheduled Measure #431: Unhealthy Alcohol Use Preventative Care & Scrn: Patient not identified as an unhealthy alcohol user Objective - Vital Signs Vital signs: Vital Signs Temp Pulse 66 04/26/19 13:32 Resp 16 04/26/19 13:32 BP 186/107 04/26/19 13:32 Pulse Ox 97 04/26/19 13:32 PQRS Measure Charge Sheet PQRS Narrative: Smoking Status Former smoker Narcotic Agreement Date Signed 02/13/19 Blood Pressure 186/107 Pain Intensity [Lower Back] 3 Scale Used Numeric (1 - 10) Hx Alcohol Use (MH) Yes: social Home Medications: Ambulatory Orders Fenofibrate [Tricor] 54 mg PO QAM 12/03/14 Pravastatin Sodium [Pravachol] 20 mg PO QAM 12/03/14 Ergocalciferol [Vitamin D2] 50,000 unit PO MO 08/09/16 Escitalopram [Lexapro] 10 mg PO QAM 11/12/18 Bictegrav/Emtricit/Tenofov Ala [Biktarvy 50-200-25 mg Tablet] 1 each PO QAM 11/13/18 HYDROcodone/APAP 5-325MG [Tumtum 5-325] 1 tab PO Q6H PRN 02/12/19 amLODIPine [Norvasc] 10 mg PO DAILY 04/26/19 Controlled Substance Measures - Controlled Substance Measures Is patient prescribed a controlled substance at discharge?: Yes When asked, does pt state using other controlled substances?: No If prescribed controlled substance>3 days was MAPS reviewed?: Yes If Rx opioid, was Start Talking consent form obtained?: Yes If opioid is for acute pain is fill amount 7 days or less?: No Was information provided regarding opioid addiction?: Yes
== END | disposition home or self-care (01) ==
LOC: PNWHC3 13:19
PROVIDERS: ATTEND Anesthesiology
DX: M47.816 Spondylosis without myelopathy or radiculopathy, lumbar region (principal); I10 Essential (primary) hypertension; R20.2 Paresthesia of skin; B20 Human immunodeficiency virus [HIV] disease; Z87.891 Personal history of nicotine dependence; Z79.899 Other long term (current) drug therapy
CPT/HCPCS: 99211

== ENCOUNTER → 2019-06-15 | Outpatient (CLI) | payer MEDICAID ==
[2019-06-15 14:16] LABS: Basophils # (A) 0.1 k/uL (0-0.2); Basophils % (A) 2 %; Eosinophils # (A) 0.3 k/uL (0-0.7); Eosinophils % (A) 5 %; HCT 45.8 % (39.0-53.0); HGB 15.7 gm/dL (13.0-17.5); Lymphocytes # (A) 1.3 k/uL (1.0-4.8); Lymphocytes % (A) 22 %; MCHC 34.3 g/dL (31.0-37.0); MCV 90.5 fL (80.0-100.0); Mean Platelet Volume 9.2; Monocytes # (A) 0.5 k/uL (0-1.0); Monocytes % (A) 8 %; Neutrophils # (A) 3.5 k/uL (1.3-7.7); Neutrophils % (A) 61 %; Platelet Count 171 k/uL (150-450); RBC 5.06 m/uL (4.30-5.90); RDW 12.8 % (11.5-15.5); WBC 5.8 k/uL (3.8-10.6)
[2019-06-15 18:31] LABS: African American GFR (CKD) 83.5 (60.0-200.0); Albumin 4.5 g/dL (3.80-4.90); Albumin/Globulin Ratio 2.37 (1.60-3.17); Anion Gap 7.9 mmol/L (4.00-12.00); BUN/Creat Ratio 13.64 Ratio (12.00-20.00); Calcium 9.2 mg/dL (8.7-10.3); Carbon Dioxide 28.1 mmol/L (21.6-31.8); Globulin 1.9 g/dL (1.6-3.3); Non-African American GFR(CKD) 72.1 (60.0-200.0); Potassium 3.9 mmol/L (3.5-5.5); Total Bilirubin 0.5 mg/dL (0.2-1.2); Total Protein 6.4 g/dL (6.2-8.2)
[2019-06-16 10:45] LABS: T Helper Cell (CD4) 668 cell/ul (443-1471); T Helper Cell (CD4) % 45 % (35-66); T Suppressor Cell (CD8) 536 cell/ul (190-832); T Suppressor Cell (CD8) % 36 % (9-37); T4/T8 Ratio (CD4:CD8) 1.2 (1.0-3.7)
[2019-06-18 14:32] LABS: HIV-1 RNA Not detected (Not detected)
== END | disposition home or self-care (01) ==
LOC: LABWHC1 12:51
PROVIDERS: ATTEND Internal Medicine Infectious Disease
DX: B20 Human immunodeficiency virus [HIV] disease (principal)
CPT/HCPCS: 36415; 80053; 85025; 86360; 87535; 87536

== ENCOUNTER → 2019-06-21 | Outpatient (CLI) | payer MEDICAID ==
[2019-06-21 12:46] VITALS: BP 147/87; PULSE 78; RESP 16
--- NOTE | 2019-06-22 10:08 | P.PAINPG ---
Subjective Progress Note Date: 06/21/19 This is a 63-year-old male who returns to clinic for follow-up. He has been managed in our clinic with a combination of medications and interventional pain management. He is on gabapentin for symptoms consistent with formication, he reports that this significantly helped his symptoms. We also prescribe him Aptos, which he uses sparingly (30 tabs last 8 weeks). He denies side effects from the medications and the medications are allowing him to function. He us looking forward to [facility] in 2 weeks. He did undergo a right sided lumbar radiofrequency ablation in March 2019, unfortunately he did not get any significant relief from this. His primary pain complaint is still right low back, radiating to right buttock, rated a 6/10, worse with lifting and sitting and better with medications, heat. This pain is particularly worse when he is working. Of note, he has not been to physical therapy recently. Review of systems is negative for chest pain, shortness of breath, new onset weakness, numbness/tingling, abdominal pain, malaise, fever, night sweats, chills, homicidal or suicidal ideation, or bowel or bladder incontinence. Objective - Exam Vital Signs: Reviewed in EMR GENERAL: Well appearing, in no acute distress, PSYCH: Mood and affect is appropriate. Awake, alert, and oriented SKIN: Skin color, texture, turgor normal, no rashes or lesions HEENT: Normocephalic, atraumatic. EOM intact CV: No pedal edema RESP: Respirations are unlabored, no audible wheezing GI: Abdomen non-distended MUSCULOSKELETAL: Bilateral lower extremity strength is normal and symmetric. No atrophy or tone abnormalities are noted. Lumbar spine: moderate tenderness to palpation at lumbar paraspinal muscles on the right side. Positive facet loading on the right Buttocks: No pain to palpation over the PSIS, Extremities: Peripheral joint ROM is full and pain free without obvious instability or laxity in all four extremities. No edema or skin discolorations noted. NEUR: No loss of sensation is noted. Cranial nerves are grossly intact. Assessment and Plan Assessment: Assessment: 1. Lumbar spondylosis 2. Formication- pruritus neuropathy 3. HIV 4. Hypertension 5. Chronic use of high-risk medications including opioid Plan: 1. Explanation: None 2. Opioid agreement: The agreement was renewed today 3. Counseling: He was instructed to stay active, and counseling on the importance of exercise. 4. Procedures: None 5. Consultations: Prescription for physical therapy provided to focus on low back and core strengthening exercises 6. Investigations: Urine drug screen from March 2019 was reviewed and congruent with medications prescribed 7. Medications: Aptos 5/325 30 tablets given with no refills. This will be his last prescription, as he does not anticipate needing Aptos following [facility]. Gabapentin 300 mg 3 times a day was given. Primary care physician could take over this medication as he is unstable low dose and I do not anticipate needing to increase the dose in the near future. 8. Disposition: As needed, after physical therapy PQRS Measure Charge Sheet Measure #130: Documentation of Current Meds in Medical Chart: Patient's medications documented in chart Measure #226: Tobacco Use: Screen & Cessation Intervention: Pt not a tobacco user Measure #111: Pneumonia Vaccination: Pneumococcal vaccine administered or previously received Measure #47: Advance Care Plan: Advance care planning discussed & documented, pt chose/unable to give Measure #412: Opioid Treatment Agreement: Documented signed opioid trtmnt agreemnt min once during opioid trtmnt Measure #408: Opioid Therapy Follow-up Evaluation: Patient had f/u eval minimum every 3 months during opioid therapy Measure #317: Preventitive Care & Scrn High Bld Press & F/U: Pre-hypertensive or hypertensive BP documented, pt will f/u with PCP Measure #128: Body Mass Index (BMI) Screening & Follow-up: BMI documented within normal parameters Measure #131: Pain Assessment & Follow-up: Pain positive & plan documented, Follow-up PRN Measure #431: Unhealthy Alcohol Use Preventative Care & Scrn: Patient not identified as an unhealthy alcohol user PQRS Narrative: Smoking Status Former smoker Narcotic Agreement Date Signed 02/13/19 Pain Intensity [Right Lower 4 Back] Scale Used Numeric (1 - 10) Hx Alcohol Use (MH) Yes: social Home Medications: Ambulatory Orders Fenofibrate [Tricor] 54 mg PO QAM 12/03/14 Pravastatin Sodium [Pravachol] 20 mg PO QAM 12/03/14 Ergocalciferol [Vitamin D2] 50,000 unit PO MO 08/09/16 Escitalopram [Lexapro] 10 mg PO QAM 11/12/18 Bictegrav/Emtricit/Tenofov Ala [Biktarvy 50-200-25 mg Tablet] 1 each PO QAM 11/13/18 HYDROcodone/APAP 5-325MG [Aptos 5-325] 1 tab PO Q6H PRN 02/12/19 amLODIPine [Norvasc] 10 mg PO DAILY 04/26/19 Controlled Substance Measures - Controlled Substance Measures Is patient prescribed a controlled substance at discharge?: Yes When asked, does pt state using other controlled substances?: No If prescribed controlled substance>3 days was MAPS reviewed?: Yes If Rx opioid, was Start Talking consent form obtained?: Yes If opioid is for acute pain is fill amount 7 days or less?: No Was information provided regarding opioid addiction?: Yes
== END | disposition home or self-care (01) ==
LOC: PNWHC3 11:59
PROVIDERS: ATTEND Anesthesiology
DX: M47.816 Spondylosis without myelopathy or radiculopathy, lumbar region (principal); G62.9 Polyneuropathy, unspecified; B20 Human immunodeficiency virus [HIV] disease; I10 Essential (primary) hypertension; Z87.891 Personal history of nicotine dependence; Z79.891 Long term (current) use of opiate analgesic; Z79.899 Other long term (current) drug therapy
CPT/HCPCS: 99211

== ENCOUNTER 2020-04-23 08:06 | Day surgery (SDC) | payer MEDICAID ==
[2020-04-21 15:37] VITALS: BMI 25.8
[2020-04-23 08:28] VITALS: RESP 16; TEMP 97.6
[2020-04-23] MEDS ORDERED: PROPOFOL 10 MG/ML 20 ML VIAL IV ONE (08:59)
--- NOTE | 2020-04-23 09:17 | P.PCN ---
Date of Procedure: 04/23/20 Procedure(s) Performed: BRIEF HISTORY: Patient is a 64-year-old pleasant white male scheduled for an elective colonoscopy as a part of screening for colorectal neoplasia. His family history of colon cancer diagnosed in his grandfather. PROCEDURE PERFORMED: Colonoscopy. PREOPERATIVE DIAGNOSIS: Screening for colon cancer/family history of colon cancer. IV sedation per Anesthesia. PROCEDURE: After informed consent was obtained, the patient, was brought into the endoscopy unit. IV sedation was administered by Anesthesia under continuous monitoring. Digital rectal examination was normal. Initially the Olympus CF-160 flexible video colonoscope was then inserted in the rectum, gradually advanced i nto the cecum without any difficulty. Careful examination was performed as the scope was gradually being withdrawn. Ileocecal valve and the appendiceal orifice were visualized and appeared normal. Prep was excellent. Mucosa of the cecum, ascending colon, transverse colon, descending colon, sigmoid colon, and rectum appeared normal. Scattered sigmoid diverticulosis. Retroflexion was performed in the rectum and no lesions were seen. The patient tolerated the procedure well. IMPRESSION: Normal-appearing colon from rectum to cecum with no evidence of colorectal neoplasia. Scattered sigmoid diverticulosis. RECOMMENDATIONS: Findings of this examination were discussed with the patient as well as his family. He was advised to have a repeat screening colonoscopy in 10 years.
[2020-04-23 09:44] VITALS: BP 133/86; PULSE 62
== END 2020-04-23 09:57 | disposition home or self-care (01) ==
LOC: ORWHC2ENDO 08:06
PROVIDERS: ATTEND Internal Medicine Gastroenterology
DX: Z12.11 Encounter for screening for malignant neoplasm of colon (principal); K57.30 Diverticulosis of large intestine without perforation or abscess without bleeding; Z80.0 Family history of malignant neoplasm of digestive organs; B20 Human immunodeficiency virus [HIV] disease; I10 Essential (primary) hypertension; E78.5 Hyperlipidemia, unspecified; Z79.899 Other long term (current) drug therapy
CPT/HCPCS: J2704; G0105